=== PATIENT | male | born 1940 | race Caucasian/White ===

== ENCOUNTER 2017-11-24 10:13 | Inpatient (IN) | payer MEDICARE, OTHER ==
[~2017-11-24] VITALS: Ht 215.9 cm; Wt 71.6 kg
[~2017-11-24 10:13] MED LIST: ALEVE220 M1 PO; CARBIDOPA-LEVO1 EAC9 PO; CITALOPRAM HBR20 MG PO; DILAUDID2 MG PO; FERROUS SULFAT325 MG PO; GABAPENTIN100 MG PO; MIRAPEX0.25 MG PO; MOBIC7.5 MG PO; MULTIVITAMINS1 EAC7 PO; NAPROSYN500 MG PO; NORCO 5-325 TA1 EACH PO; PREDNISONE20 MG PO; SERTRALINE HCL100 MG PO; TYLENOL EXTRA500 MG PO
--- NOTE | 2017-11-24 15:35 | NUR ---
REPORT FROM MARISA HALL E.D.
--- NOTE | 2017-11-24 16:05 | NUR ---
PT TO ROOM 113 FROM E.D. AT THIS TIME. PT IS ALERT AND ORIENTED. PT RATES PAIN 5/10. 3/10 IS PT GOAL PAIN LEVEL.
--- NOTE | 2017-11-24 16:35 | NUR ---
NGT PLACED, PT TOLERATED WELL. ASSESSED AIR IN OVER ABD POSITIVE FOR PLACEMENT CXR ORDER PER POLICY TO CNFIRM PLACEMENT
[2017-11-24] MEDS ORDERED: HYDROCODON-ACE1 EAC8 PO (16:45)
[2017-11-24] MEDS ORDERED: FERROUS GLUCON324 M2 PO (16:47)
[2017-11-24] MEDS ORDERED: CARBIDOPA-LEVO1 EACH PO (16:48)
[2017-11-24] MEDS ORDERED: TAMSULOSIN HCL0.4 MG PO (16:49)
[2017-11-24] MEDS ORDERED: MIRAPEX0.25 MG PO (16:50)
[2017-11-24] MEDS ORDERED: PRAMIPEXOLE D0.25 MG PO (16:50)
--- NOTE | 2017-11-24 17:00 | NUR ---
NGT LOOPED BACK ON XRAY. PULLED BACK AND RE-ADVANCED, ALSO ATTEMPTED BY CLARICE HALL CCU. STILL LOOPED BACK. WILL NOTIFY TO FURTHER ASSESS.
--- NOTE | 2017-11-24 18:00 | NUR ---
IN PT ROOM TO REMOVE AND REPLACE NGT. CURRENT NGT FOUND TO HAVE KNOT AT TIP, PULLED KNOT END OUT PT MOUTH CLIPPED OFF THEN PULLED REMAINDER OF NGT OUT PT NOSE. PT TOLERATED WELL, WITH MILD BLOODY NOSE. PT ASKED TO HAVE BREAK FROM REPLACEING NEW NGT. SAID WE CAN WAIT UNTIL MORNING AND REASSESS NEED FOR NGT THEN.
--- NOTE | 2017-11-24 18:40 | NUR ---
PT ADMITTED THIS AFTERNOON, HE REPORTS PAIN AT 5/10 MAINTAINED, WAS GIVEN 4MG I.V. MORPHINE. NGT WAS DIFFICULT PLACE PROVED TO NOT BE IN PROPER PLACEMENT PER CXR, FORREST REMOVED WITH NOTEABLE DIFFICULTY KNOT IN TIP OF DISTAL NGT. WILL RE-ASSESS NEED FOR NGT IN AM. PT ALERT AND ORIENTED, COOPERATIVE WITH CARE
--- NOTE | 2017-11-24 20:09 | NUR ---
RECEIVED REPORT FROM SCOTT DEL ANGEL RN. PATIENT IS RESTING IN RECLINER. GOWN AND SHEETS CHANGED. PATIENT HAD A SMALL BLOODY NOSE, THAT HAS SINCE STOPPED BLEEDING. PATIENT DENIES ANY NEEDS AT THIS TIME. CALL LIGHT IN REACH.
--- NOTE | 2017-11-24 20:10 | NUR ---
BOLUS STARTED. PAIN RATED AT A 5/10. PATIENT REQUESTING PAIN MEDICATION WITH EVENING MEDICATIONS. WILL BRING WITH NIGHT MEDS.
--- NOTE | 2017-11-24 21:55 | NUR ---
PATIENT ASSESMENT COMPLETED. PATIENTS EVENING MEDICATIONS GIVEN PER ORDER. PATIENT RATES PAIN AT A 5/10. PATIENT GIVEN PRN PAIN MEDICATION PER ORDER. PATIENT IS SITING IN RECLINER LOOKING OUT THE WINDOW. PATIENT DENIES ANY NAUSEA AT THIS TIME. PATIENTS BOLUS COMPLETED. NO FURTHER NEEDS NOTED CALL LIGHT IN REACH.
--- NOTE | 2017-11-24 22:35 | NUR ---
PATIENT IS RESTING IN RECLINER WITH EYES CLOSED, RR 18. BREATHING IS EVEN AND UNLABORED. CALL LIGHT IN REACH.
--- NOTE | 2017-11-25 00:42 | NUR ---
PATIENT CALLED TO REQUEST ASSISTANCE TO THE BED. PATIENT IS NOW RESTING IN BED. PATIENT RATES PAIN AT A 4-5/10 IN HIS LOWER ABD. PATIENT GIVEN PRN PAIN MEDICATION PER ORDER. PATIENT DENIES ANY NAUSEA. NO FURTHER NEEDS. NOTED. CALL LIGHT IN REACH.
--- NOTE | 2017-11-25 01:59 | NUR ---
NEW IV BAG HUNG PER ORDER. PATIENT DENIES ANY NAUSEA. RATES PAIN AT A 3/10. PATIENT DENIES THE NEED FOR ANY PAIN MEDICATION AT THIS TIME. CALL LIGHT IN REACH.
--- NOTE | 2017-11-25 03:16 | NUR ---
PATIENT IS RESTING IN BED WITH EYES CLOSED, RR 17. CALL LIGHT IN REACH.
--- NOTE | 2017-11-25 04:26 | NUR ---
PATIENT GIVEN PRN PAIN MEDICATION FOR 5/10 ABD PAIN. PATIENT DENIES ANY FURTHER NEEDS. CALL LIGHT IN REACH.
--- NOTE | 2017-11-25 05:37 | NUR ---
PATIENT RESTED WELL THROUGHOUT THE SHIFT. PATIENT IS A SBA AND IS STEADY ON HIS FEET. PATIET NIS NPO AT THIS TIME. SCDS WHILE IN BED. PATIENTS URINE OUTPU IS QS. PATIEN RECEIVED PRN PAIN MEDICATION X3. NO COMPLAINTS OF NAUSEA.
--- NOTE | 2017-11-25 05:45 | NUR ---
PATIENT IS RESTING IN BED. PATIENT AWOKE BRIEFLY WHEN ROOM WAS ENTERED. PATIENT RATES PAIN AT A 3/10. PATIENT DENIES THE NEED FOR PAIN MEDICATION AT THIS TIME. PATIENT DENIES ANY NAUSEA. NO NEEDS NOTED AT THIS TIME. CALL LIGHT IN REACH.
--- NOTE | 2017-11-25 06:59 | NUR ---
PATIENTS MORNING MEDICATIONS GIVEN PER ORDER. PATIENT DENIES ANY PAIN OR NAUSEA AT THIS TIME. CALL LIGHT IN REACH.
--- NOTE | 2017-11-25 07:47 | NUR ---
PATIENT IN BED, APPEARS TO BE SLEEPING. IN ROOM. ICE WATER GIVEN TO . CALL LIGHT IN REACH
--- NOTE | 2017-11-25 08:29 | NUR ---
up walking in room, Coop with assessment
--- NOTE | 2017-11-25 08:48 | NUR ---
Med rec complete.
--- NOTE | 2017-11-25 09:50 | NUR ---
PATIENT UP IN WITH , VITALS AND I/OS CHARTED. CALL LIGHT IN REACH
--- NOTE | 2017-11-25 10:50 | NUR ---
Medicated with Morphine 6mg IV, c/o 12/01 abd pain, not passig rectal gas yet. UIn bed watching tv
--- NOTE | 2017-11-25 15:38 | NUR ---
1530- K RIDER#2 RATE DECREASED TO 50CC/HR DUE TO PT C/O PAINFUL IV SITE. , PT STATING MORE ABLE TO TOLERATE AT A LOWER RATE, NOT PAINFUL. UP IN BED VISITING WITH FAMILY
--- NOTE | 2017-11-25 17:28 | NUR ---
PATIENT UP IN BED. VITALS AND I/OS CHARTED. CALL LIGHT IN REACH
--- NOTE | 2017-11-25 17:52 | NUR ---
PT CONTINUES TO BE NPO, DOES OWN MOUTH CARE. IVF INFUSING W/O PROBLEMS, PT GOT A 30mEq K rider(3 bags of 10mEq K), IVF rate decreased to 50cc/hr as infusion was painful, improved once rate decreased. Has been walking in room, voiding using urinal. Oral belching but no rectal flatus, no bm yet. Tx of solucortef Medicated x1 per c/o abd pain. IVF infusing w/o problems
--- NOTE | 2017-11-25 19:26 | NUR ---
IV leaking, infiltrated, dc'd tip intact. 2x2 inplace. Walked hallways up and down x2 tolerated well. Back to room, walking in room
--- NOTE | 2017-11-25 19:55 | NUR ---
RECEIVED REPORT FROM DAY SHIFT RN. PATIENTS IV IS NO LONGER PATENT. PATIENT HAS FAMILY IN THE ROOM. WILL START NEW IV. PATIENT DENIES ANY PAIN OR NAUSEA. CALL LIGHT IN REACH.
--- NOTE | 2017-11-25 21:02 | NUR ---
PATIENT HAS FAMILY IN THE ROOM AND DOES NOT WISH TO HAVE A NEW IV STARTED AT THIS TIME. PATIENT WILL CALL WHEN READY. NO NEEDSNOTED. CALL LIGHT IN REACH
--- NOTE | 2017-11-25 21:49 | NUR ---
VITALS DONE AND CHARTED. BEDSIDE TABLE AND CALL LIGHT WITHIN REACH.
--- NOTE | 2017-11-25 22:20 | NUR ---
PATIENT ASSSEMENT COMPLETED. NEW IV STARTED. PATIENTS EVENING MEDICATIONS GIVEN PER ORDER. PATIENT DENIES ANY NAUSEA. PATIENT RATES PAIN AT A 4/10 IN HIS ABD. PATIENT GIVEN PRN PAIN MEDICATION. PATIENT STATED "I HAVE PASSED A LITTE BIT OF GAS". PATIENT DID AMBULATE IN THE HALLWAY MULTIPLE LAPS. PATIENT IS RESTING IN BED. PATIENT IS WATCHING FIREWORKS. NO FURTTHER NEEDSNOTED. CALL LIGHT IN REACH.
--- NOTE | 2017-11-26 00:45 | NUR ---
PATIENT IS RESTING IN BED POSITIONED ON HIS RIGHT SIDE. PATIENTS BREATHING IS EVEN AND UNLABORED, RR 17. CALL LIGHT IN REACH.
--- NOTE | 2017-11-26 02:18 | NUR ---
PATIENT AWOKEN WHEN ROOM WAS ENTERED TO EMPTY PATIENTS URINAL. PATIENT DENIES ANY PAIN OR NAUSEA AT THIS TIME. NO NEEDS NOTED. CALL LIGHT IN REACH.
--- NOTE | 2017-11-26 02:23 | NUR ---
URINAL EMPTIED AND CHARTED. BEDSIDE TABLE AND CALL LIGHT WITHIN REACH.
--- NOTE | 2017-11-26 04:55 | NUR ---
PATIENT RESTED WELL THROUGHOUT THE SHIFT. PATIENT IS NPO AT THIS TIME. PATIENT HAS SCDS IN PLACE. PAITENT IS A SBA. NO COMPLAINTS OF NAUSEA. PATIENT RECEIVED PRN PAIN MEDICATION X1.
--- NOTE | 2017-11-26 06:01 | NUR ---
PATIENTS MORNING MEDICATIONS GIVEN PER ORDER. PATIENT DENIES ANY PAIN OR NAUSE AT THIS TIME. 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 NO FURTHER NEEDS NOTED. PATIENT IS UP IN HALLWAY AMBULATING INDPENDENTLY. PATIENT IS STEADY ON HIS FEET.
--- NOTE | 2017-11-26 07:00 | NUR ---
REPORT RECEIVED FROM MAKSIM AT THIS TIME PATIENT SITTING UP IN BED, REMAINS NPO AT THIS TIME
--- NOTE | 2017-11-26 08:30 | NUR ---
AM MEDICATION PASSED TO THE PATIENT AT THIS TIME, HE DENIES ANY PAIN OR NAUSEA AT THIS TIME. PATIENT REPORTS PASSING GAS AND HAS ACTIVE BOWEL TONES.
--- NOTE | 2017-11-26 08:42 | NUR ---
GOT PATIENT A WARM WASH CLOTH AND HE WASHED HIS FACE. ALSO ASKED HIM IF HE WOULD LIKE TO TAKE A SHOWER AND HE TOLD ME IF HE DOESN'T GET TO HOME TODAY.
--- NOTE | 2017-11-26 10:50 | NUR ---
PATIENT ASSISTED UP TO THE BATHROOM TO ATTEMPT A BM
--- NOTE | 2017-11-26 13:24 | NUR ---
PT SITTING IN BED, VISITING WITH ANDRESSA. PT FEELS IMPROVEMENT, AND IS HOPING NG TUBE WILL NOT HAVE TO BE INSERTED. PT IS ALERT, ORIENTED AND HAD GOOD VISIT. VISITORS CAME JUST BEFORE LEAVING-HAD PRAYER WITH PT, WILL FOLLOW NEEDED
--- NOTE | 2017-11-26 14:45 | NUR ---
PATIENT ADVANCED AT THIS TIME TO A CLEAR LIQUID DIET
--- NOTE | 2017-11-26 16:07 | NUR ---
PATIENT TOLERATING A CLEAR LIQUID DIET WITHOUT ANY TROUBLE, IV FLUID DECREASED TO 75 MLS/HR PATIENT TALKING WITH DOCTOR FORREST AT THIS TIME
--- NOTE | 2017-11-26 19:55 | NUR ---
RECEIVED REPORT FROM DAY SHIFT RN. PT OOB TO SHOWER AT THSI TIME. A/O. INDEPENDENT. CALL LIGHT WITHN REACH. REPORTS NO OTHER NEEDS AT THIS THIME.
--- NOTE | 2017-11-26 21:35 | NUR ---
VITALS AND I&OS DONE AND CHARTED. BEDSIDE TABLE AND CALL LIGHT WITHIN REACH. PT NEEDS NOTHING ELSE AT THIS TIME.
--- NOTE | 2017-11-26 21:50 | NUR ---
ASSESSMENT COMPLETED. BOWEL TONES ACTIVE. ABDOMEN TENDER. PT OOB TO SHOWER. REPORS MINIMAL PAIN, ONLY WITH PO INTAKE. ENCOURAGE PT TO SLOW INTAKE DOWN. CALL LIGHT IN REACH. NO OHTER NEEDS
--- NOTE | 2017-11-26 22:00 | HP ---
[facility] [address], [place] [address] Signed ADMISSION DATE: 11/24/2017 REASON FOR ADMISSION: Small bowel obstruction, probably recurrent Crohn's disease. HISTORY OF PRESENT ILLNESS: This 77-year-old white man is a patient of Dr. Javier (recently retired) and presented to the emergency room, where he was thoroughly evaluated by Dr. Carlos Olmedo for abdominal pain, bloating, distention, and some vomiting. A CT scan was performed, which showed a very long segment of terminal ileum to be markedly thickened, highly consistent with inflammatory bowel disease. 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 The patient was admitted few years ago by Dr. Reid Galeana with small-bowel obstruction and findings of a similar type apparently on CT scan and managed with nasogastric tube decompression, fluid administration, and so forth with spontaneous resolution. Of special note, the patient denies any concentrated effort of antiinflammatory medication for this problem over the years. His symptoms today are similar to what he has had in the past. Previous episodes are often managed on his own with liquid diet and passage of time, which allows for resolution of his symptoms. He was not so fortunate on this occasion and that is the purpose of his visit and at this time is admission. Notes were reviewed from his bowel obstruction admission, which proved to be 10 years ago upon review of the records, January 12, 2008. History at that time revealed that he had appendectomy as well as lysis of adhesions while in the [employer] number of years ago. He had admission for bowel obstruction 10 years prior to that, which resolved without special measures and without operation. PAST MEDICAL HISTORY: Does include restless legs syndrome. He has had nephrolithiasis requiring open pyelotomy for removal of kidney stones. This was done in [place]. He has had back surgery in the past, neck operation, rotator cuff repair on the left, bilateral inguinal hernia repair, and appendectomy. ALLERGIES: Electronically Signed By: AGUILAR CLAYTON MD 11/26/17 2200 PATIENT NAME: MORGAN FRANZ HISTORY AND PHYSICAL DATE OF : 36 REPORT #: [id number] PHYSICIAN: AGUILAR CLAYTON MD PCP: Alejandro JAVIER MD REPORT IS CONFIDENTIAL AND NOT TO BE RELEASED WITHOUT AUTHORIZATION [facility] [address], [place] [address] Signed He has no known drug allergies. MEDICATIONS: At admission include [place] from [id number], also takes Naprosyn, multivitamins, Citalopram, ferrous gluconate, gabapentin, sertraline, and acetaminophen. Additionally, he takes carbidopa and Mirapex for restless legs he says. SOCIAL HISTORY: He tells me he was delivered by my grandfather in 1940 at the [facility]. He is . He has one daughter, Katherine, who I know as well. REVIEW OF SYSTEMS: He denies any shortness of breath or chest pain. He has had no dysphagia or dysuria. Denies any hematemesis or blood per rectum. PHYSICAL EXAMINATION: GENERAL: Pleasant white man, who looks to be in no sign of great distress. He does not appear clinically dehydrated at this time. Trachea is midline. CHEST: Clear. Nasogastric tube was poorly functioning that has been placed by the nursing staff. HEART: Regular. ABDOMEN: Mildly distended, but not tense and definitely not tender. There is no ascites. EXTREMITIES: Showed no clubbing, cyanosis, or edema. LABORATORY DATA: CBC shows white count 7.2, hematocrit 38.4, platelets 341,000. Electrolytes show potassium 3.3, creatinine 0.82, bicarb is 27. Liver enzymes are normal. Albumin is 3.9. CT scan was reviewed in detail with the radiologist, Dr. Pollock. A very long segment of ileum appears to be markedly thickened and more proximal small bowel to be dilated, but not thickened and therefore obstructed. Bit of a hiatal hernia is noted as well. Liver appears normal. Spleen is normal as is the pancreas. The gallbladder was slightly distended. ASSESSMENT AND PLAN: The patient was admitted for small bowel obstruction, probably related to recurrent Crohn's disease. He is curious that all these many years, he has not had dedicated treatment to the inflammatory bowel disease process, which is clearly present on CT scan. Rather than resection of his ileum in the past, it sounds as though he had a bypass. I am not entirely sure how long ago this was, but it maybe as many as 50 years ago or more even and on that basis, I will try to review the historical operation of the "Eisenhower procedure." In any case, it is highly probable he has a Crohn's related Electronically Signed By: AGUILAR CLAYTON MD 11/26/17 2501 PATIENT NAME: MORGAN FRANZ HISTORY AND PHYSICAL DATE OF : 36 REPORT #: [id number] PHYSICIAN: AGUILAR CLAYTON MD PCP: Alejandro JAVIER MD REPORT IS CONFIDENTIAL AND NOT TO BE RELEASED WITHOUT AUTHORIZATION [facility] [address] [place], [place] [address] Signed recurrent bowel obstruction. IV fluids will be administered as well as steroids and side of protection of his stomach. An unusual situation did occur in relation to his nasogastric tube. The nurses had diligently attempted to place a nasogastric tube on the nursing sterling. It was not placed in the ER as anticipated. In any case, passage of nasogastric tube was not forthcoming and multiple efforts to do so were unsuccessful. I was summoned on the basis that the nasogastric tube on plain x-ray showed a somewhat angulated tip at the GE junction. On that basis, I withdrew the nasogastric tube, which had a fair amount of resistance actually. My plan was to remove the tube entirely and place a different pressure tube, possibly slightly smaller with more ability to negotiate a hiatal hernia. The tube absolutely would not withdraw from the choanal aperture. On that basis, it was advanced and found to having a large knot in the distal aspect of the nasogastric tube!. A heavy clamp was used to carefully draw the knotted nasogastric tube out of the mouth, not amputated, and this nasogastric tube removed. There was a bit of bleeding of the nasopharynx with this, which is now controlled. We will reassess about replacing a nasogastric tube in the morning. He does not feel up to it at this time and that is understandable. If he should have recurrent nausea, vomiting, bloating, distention and so forth despite bowel rest otherwise, I will replace the tube myself. Probably, we will anyway tomorrow morning. We will get a KUB and see what the status of his bowels are at that time. Aguilar Clayton MD JM/MODL /[id number] cc: MD Alejandro Abbott MD Copies: CARLOS OLMEDO MD Electronically Signed By: AGUILAR CLAYTON MD 11/26/172199 PATIENT NAME: MORGAN FRANZ HISTORY AND PHYSICAL DATE OF : 36 REPORT #: [id number] PHYSICIAN: AGUILAR CLAYTON MD PCP: Alejandro JAVIER MD REPORT IS CONFIDENTIAL AND NOT TO BE RELEASED WITHOUT AUTHORIZATION [facility] [address], [place] [address] Signed Alejandro JAVIER MD ~ Electronically Signed By: AGUILAR CLAYTON MD 11/26/172199 PATIENT NAME: MORGAN FRANZ HISTORY AND PHYSICAL DATE OF : 36 REPORT #: [id number] PHYSICIAN: AGUILAR CLAYTON MD PCP: Alejandro JAVIER MD REPORT IS CONFIDENTIAL AND NOT TO BE RELEASED WITHOUT AUTHORIZATION
--- NOTE | 2017-11-27 00:02 | NUR ---
PT APPEARS TO BE SLEEPING. RESPIRATIONS EQUAL AND NONLABORED. CALL LIGHT IN REACH.
--- NOTE | 2017-11-27 01:40 | NUR ---
PT REPORTS PAIN 10/01. PRN PAIN MEDICAITON GIVEN. SCD'S IN PLACE. CALL [facility] IN REACH. REPORTS NO OTHER NEEDS/
--- NOTE | 2017-11-27 04:01 | NUR ---
PT APPEARS TO BE SLEEPING. RESPIRAITONS ARE EQUAL AND NONLABORED. CALL LIGHT IN REACH. FLUIDS INFUSINGAT CORRECT RATE. SCD'S IN PLACE.
--- NOTE | 2017-11-27 05:24 | NUR ---
PT UP OOB WALKING THE HALLS INDEPENDENTELY. TOLERATING WELL. REPORTS NO N/V. PAIN UNDER CONTROL.
--- NOTE | 2017-11-27 05:36 | NUR ---
VITALS AND I&OS DONE AND CHARTED. FRESH ICE WATER GIVEN. BEDSIDE TABLE AND CALL LIGHT WITHIN REACH.
--- NOTE | 2017-11-27 06:51 | NUR ---
PT SLEPT THROUGHOUT THE NIGHT. POSS DCTODAY. PT TOLERATING CLEAR LIQ. D5LR @75. SOME PAIN LAST NIGHT, MORPHINE GIVEN.
--- NOTE | 2017-11-27 07:05 | NUR ---
BEDSIDE HANDOFF REPORT RECEIVED FROM TONG SETTER RN. PT RESTING IN BED. PT DENIES NEEDS AT THIS TIME.
--- NOTE | 2017-11-27 07:45 | NUR ---
PATIENT RESTING, THIS IT RISK ANALYST WOKE HIM WHEN BREAKFAST WAS DELIVERED. BOARD UPDATED. CALL LIGHT REACH
--- NOTE | 2017-11-27 08:55 | NUR ---
PT RESTING IN BED. PT DENIES PAIN. PT ON ROOM AIR, LUNG SOUNDS CLEAR, DENIES SOB. PT TOLERATING CLEAR LIQUID DIET, DENIES NAUSEA, BOWEL TONES ACTIVE, PT HOPING TO ADVANCE TO FULL LIQUID TODAY. PT WITHOUT EDEMA, CMS INTACT, SCDS IN PLACE. IV INFUSING D5LR AT 75 ML/HR, IV PATENT. PT INDEPENDENT IN THE ROOM. PT DENIES NEEDS AT THIS TIME. DISCUSSED PLAN OF CARE. PT REPORT OF PASSING GAS, HAS NOT HAD BM.
--- NOTE | 2017-11-27 10:07 | NUR ---
PATIENT UP IN BED, AT BEDSIDE. VITALS AND I/OS CHARTED. BP TAKEN MANUALLY, THE MACHINES WERE HAVING A DIFFICULT TIME GETTING A CORRECT AND CONSISTANT READING, RN AUGUST REORTED SHE HAD THIS TROUBLE WELL. CALL LIGHT INREACH
--- NOTE | 2017-11-27 10:30 | NUR ---
PT AT [facility]. UPDATED ON MD SCHEDULE. PT DENIES NEEDS AT THIS TIME.
[2017-11-27] MEDS ORDERED: PREDNISONE10 MG PO (13:40)
[2017-11-27] MEDS ORDERED: DELZICOL400 M1 PO (13:42)
[2017-11-27] MEDS ORDERED: FAMOTIDINE20 MG PO (13:44)
--- NOTE | 2017-11-27 13:57 | NUR ---
PATIENT UP IN ROOM, WAITING TO GO HOME. DISCHARGE VITALS AND I/OS CHARTED. PATIENT EATING MAC AND CHEESE, NOC ANALYST CLAUDIA IN ROOM. NO OTHER NEEDS AT THIS TIME
--- NOTE | 2017-11-27 14:19 | NUR ---
PT DRESSED, WAITING FOR HIS "MAC AND CHEESE". HE IS ALERT, ORIENTED AND RN NATI IN TO PREP FOR DC. GOOD VISIT, HE ENJOYED HIS LUNCH. WILL FOLLOW NEEDED
--- NOTE | 2017-11-28 09:34 | DS ---
[facility] [address], [place] [address] Signed ADMISSION DATE: 11/24/2017 DISCHARGE DATE: 11/27/2017 REASON FOR ADMISSION: Small bowel obstruction. HISTORY: This 77-year-old white man is a patient Dr. Javier, who was recently retired and presented to the emergency room where he was thoroughly evaluated by Dr. Carlos Olmedo for abdominal pain, bloating, distention and vomiting. A CT scan was performed confirming a long segment of terminal ileum to be markedly thickened highly consistent with inflammatory bowel disease. A number of years ago when the patient was in the [employer] in his 20s, he was diagnosed with terminal ileitis, for which he underwent a "Eisenhower procedure" which I surmise is probably an enterocolostomy without resection. Notably, he was admitted to the hospital a few years ago by Dr. Reid Galeana for small bowel obstruction and promptly recovered with conservative management. The patient has episodes of bowel obstruction like symptoms quite commonly, for which he modifies his diet and so forth. Strangely, he has never been aggressively treated for inflammatory bowel disease, though it is highly probable he does carry that underlying diagnosis. He was admitted for further evaluation and care. PAST MEDICAL HISTORY: Includes restless legs syndrome, history of nephrolithiasis requiring open pyelotomy for kidney stones, and back surgery. He has had bilateral hernia repair and appendectomy as well as neck surgery in the past. PERTINENT PHYSICAL EXAMINATION: GENERAL: Pleasant white man, who looks to be in no sign of great distress. He did not appear clinically dehydrated. NECK: Trachea is midline. CHEST: Clear. Nasogastric tube was found to be poorly functioning, initially placed by nursing staff. ABDOMEN: Mildly distended, not tense and nontender. There is no ascites. LABORATORY DATA: White count 7.2, hematocrit 38.4, platelets 341,000, electrolytes with potassium of 3.3, creatinine 0.82. Electronically Signed By: AGUILAR CLAYTON MD 11/28/17 0934 PATIENT NAME: MORGAN FRANZ DISCHARGE SUMMARY DATE OF : 36 REPORT #: [id number] PHYSICIAN: AGUILAR CLAYTON MD PCP: Alejandro JAVIER MD REPORT IS CONFIDENTIAL AND NOT TO BE RELEASED WITHOUT AUTHORIZATION [facility] [address], [place] [address] Signed HOSPITAL COURSE: The nasogastric tube, which had been planned to be placed in the emergency room was nonfunctional. Various maneuvers by the nursing staff to pass the tube were unsuccessful. I presented to the patient's bedside and attempted to remove the tube, but it became stuck at the choanal entrance. Advancement of the tube in the hypopharynx showed that a knot had developed in the tube and on that basis, it was withdrawn from the hypopharynx. The knot cut off and the tube removed. Given the trauma and small amount of bleeding associated with attempted removal of the nasogastric tube, we left the tube out at that point. He is maintained within an n.p.o. Status, IV fluids and given the high probability of Crohn's related ileitis with obstruction initiated on hydrocortisone 100 mg IV q.8 hours as well as ulcer prophylaxis with Pepcid IV. He had improvement and was allowed to maintain without a nasogastric tube. Followup x-ray showed some gaseous distention of small bowel, but improvement over time. The abdominal x-ray showed no evidence of bowel obstruction. He was transitioned to oral prednisone 30 mg daily. He was initiated on a liquid diet, which he tolerated well. By the day of discharge, he is feeling completely better. He has had normal bowel movement. Abdominal distention has receded and he strongly wishes to be discharged home. Our plan at discharge is to initiate mesalamine 400 mg p.o. t.i.d. (half usual dose obviously) as well as prednisone 30 mg daily tapering 10 mg weekly. Additional imaging of his bowel will be undertaken in the future, probably in a month or so to include small-bowel follow-through and assess his level of ileitis. It is notable that his ileitis is not short-segment by any means. I saw at least 2 feet of the terminal ileum appeared markedly thickened and whether or not this is a bypass segment or knot is uncertain at this time. His vitamin levels were obtained and his B12 and folate were in normal ranges implying good absorption of vitamins, though he is on a vitamin supplement already. Special instructions at discharge will include a low-fiber diet until I see him back in the office in 4-6 weeks. He will initiate his usual medications as well. DISCHARGE DIAGNOSES: 1. Small bowel obstruction probably related to Crohn's ileitis. 2. 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 3. Restless legs syndrome. 4. Hypertension. Electronically Signed By: AGUILAR CLAYTON MD 11/28/17 0934 PATIENT NAME: MORGAN FRANZ DISCHARGE SUMMARY DATE OF : 36 REPORT #: [id number] PHYSICIAN: AGUILAR CLAYTON MD PCP: Alejandro JAVIER MD REPORT IS CONFIDENTIAL AND NOT TO BE RELEASED WITHOUT AUTHORIZATION [facility] [address] [place] [address] Signed DISCHARGE MEDICATIONS: Will include: 1. Pepcid 20 mg p.o. b.i.d. 2. Prednisone 30 mg daily for a week, tapering 10 mg a week until every other day for 10 days. 3. Mesalamine 400 mg three times a day. 4. Multivitamin one capsule daily. 5. Sertraline 100 mg p.o. daily. 6. Tylenol 500 mg p.o. b.i.d. for pain. 7. Long-standing hydrocodone/acetaminophen 1-2 tabs p.o. q.6 hours as needed for pain (tablets 10/325). 8. Ferrous gluconate 324 mg p.o. t.i.d. 9. Carbidopa-levodopa 100 mg tablets one p.o. t.i.d. as needed. 10. Tamsulosin (Flomax) 0.4 mg p.o. daily. 11. Pramipexole 0.25 mg p.o. b.i.d., noon and bedtime. I have recommended stopping Naprosyn as nonsteroidals are generally contraindicated inflammatory bowel disease problems. MD CHAY Anaya/NED /[id number] cc: Alejandro Javier MD Copies: Alejandro JAVIER MD ~ Electronically Signed By: AGUILAR CLAYTON MD 11/28/17 0934 PATIENT NAME: MORGAN FRANZ DISCHARGE SUMMARY DATE OF : 36 REPORT #: [id number] PHYSICIAN: AGUILAR CLAYTON MD PCP: Alejandro JAVIER MD REPORT IS CONFIDENTIAL AND NOT TO BE RELEASED WITHOUT AUTHORIZATION
== END 2017-11-27 15:05 | disposition home or self-care (01) | DRG 386 ==
LOC: ED 10:13 → MS 14:39
PROVIDERS: ADMIT Surgery
DX: K50.012 Crohn's disease of small intestine with intestinal obstruction (principal); T85.598A Other mechanical complication of other gastrointestinal prosthetic devices, implants and grafts, initial encounter; G25.81 Restless legs syndrome; I10 Essential (primary) hypertension; S09.92XA Unspecified injury of nose, initial encounter; Z79.1 Long term (current) use of non-steroidal anti-inflammatories (NSAID); Z79.899 Other long term (current) drug therapy; Z87.442 Personal history of urinary calculi
CPT/HCPCS: 36415; 71045; 74018; 74177; 80048; 80053; 81001; 82607; 82746; 83690; 85025; 86140; J1644; J1720; J2270; J3480; J7030; J7120; J7512; Q9967

== ENCOUNTER 2017-12-29 13:59 | Emergency (ER) | payer MEDICARE, OTHER ==
[~2017-12-29] VITALS: Ht 180.3 cm; Wt 71.6 kg
[~2017-12-29 13:59] MED LIST changes: +CARBIDOPA-LEVO1 EACH PO; +DELZICOL400 M1 PO; +FAMOTIDINE20 MG PO; +FERROUS GLUCON324 M2 PO; +HYDROCODON-ACE1 EAC8 PO; +PRAMIPEXOLE D0.25 MG PO; +PREDNISONE10 MG PO; +TAMSULOSIN HCL0.4 MG PO
[2017-12-29] MEDS ORDERED: ELIQUIS5 MG PO (16:13)
== END 2017-12-29 16:29 | disposition home or self-care (01) ==
LOC: ED 13:59
DX: I82.412 Acute embolism and thrombosis of left femoral vein (principal); Z79.52 Long term (current) use of systemic steroids; Z79.899 Other long term (current) drug therapy; Z79.891 Long term (current) use of opiate analgesic
CPT/HCPCS: 80053; 85025; 93971; 99284

== ENCOUNTER 2018-02-07 08:53 | Emergency (ER) | payer MEDICARE, OTHER ==
[~2018-02-07] VITALS: Ht 180.3 cm; Wt 71.6 kg
--- OUTSIDE RECORDS SUMMARY | ~2018-02-07 | XMS | Encounter Summary ---
Demographics + + + | Address | [address] | | | [place] [address] | + + + | Home Phone | | + + + | Preferred Language | Unknown | + + + | Marital Status | | + + + | Mandaeism Affiliation | Unknown | + + + | Race | Unknown | + + + | Ethnic Group | Unknown | + + + Author + + + | Author | [facility] | | | and [place] | + + + | Organization | [facility] | | | and [place] | + + + | Address | Unknown | + + + | Phone | Unavailable | + + + Support + + + + + | Name | Relationship | Address | Phone | + + + + + | Xochitl Gomez | ECON | [address] | | | | | [place] | | | | | [phone] | | + + + + + Care Team Providers + +------+ + | Care Fermentation Operator Name | Role | Phone | + +------+ + | Kelly Sosa MD | PCP | | + +------+ + Reason for Visit Auth/Cert +--------+--------+ + + + + | Status | Reason | Specialty | Diagnoses / | Referred By | Referred To | | | | | Procedures | Contact | Contact | +--------+--------+ + + + + | | | | Diagnoses | | | | | | | Cervical | | | | | | | spondylosis | | | | | | | with | | | | | | | myelopathy | | | | | | | (M47.12), | | | | | | | Neuropathy | | | | | | | (G62.9), | | | | | | | History of | | | | | | | fusion of | | | | | | | cervical | | | | | | | spine | | | | | | | (Z98.1), | | | | | | | Cervical | | | | | | | spinal | | | | | | | stenosis | | | | | | | (M48.02) | | | | | | | Procedures | | | | | | | NE | | | | | | | ARTHRODESIS | | | | | | | ANT | | | | | | | INTERBODY | | | | | | | INC | | | | | | | DISCECTOMY, | | | | | | | CERVICAL | | | | | | | BELOW C2 NE | | | | | | | ARTHRODESIS | | | | | | | ANT | | | | | | | INTERBODY | | | | | | | INC | | | | | | | DISCECTOMY, | | | | | | | CERVICAL | | | | | | | BELOW C2 NE | | | | | | | ARTHRODESIS | | | | | | | ANT | | | | | | | INTERBODY | | | | | | | INC | | | | | | | DISCECTOMY, | | | | | | | CERVICAL | | | | | | | BELOW C2 | | | | | | | EACH ADDL | | | | | | | NE ALLOGRAFT | | | | | | | FOR SPINE | | | | | | | SURGERY ONLY | | | | | | | STRUCTURAL | | | | | | | ANTERIOR | | | | | | | INSTRUMENTAT | | | | | | | ION 4-7 | | | | | | | VERTEBRAL | | | | | | | SEGMENTS NE | | | | | | | INSJ | | | | | | | BIOMCHN DEV | | | | | | | INTERVERTEBR | | | | | | | AL DSC SPC | | | | | | | W/ARTHRD NE | | | | | | | INSJ | | | | | | | BIOMCHN DEV | | | | | | | INTERVERTEBR | | | | | | | AL DSC SPC | | | | | | | W/ARTHRD NE | | | | | | | INSJ | | | | | | | BIOMCHN DEV | | | | | | | INTERVERTEBR | | | | | | | AL DSC SPC | | | | | | | W/ARTHRD NE | | | | | | | REMOVE | | | | | | | SPINE FIX | | | | | | | DEV,ANTERIOR | | | | | | | ANTERIOR | | | | | | | INSTRUMENTAT | | | | | | | ION 2-3 | | | | | | | VERTEBRAL | | | | | | | SEGMENTS NE | | | | | | | ALLOGRAFT | | | | | | | FOR SPINE | | | | | | | SURGERY ONLY | | | | | | | STRUCTURAL | | | | | | | C3-4, C4-5, | | | | | | | C6-7 | | | | | | | Anterior | | | | | | | Cervical | | | | | | | Discectomy | | | | | | | Fusion w/ | | | | | | | C5-6 | | | | | | | Hardware | | | | | | | Revision | | | +--------+--------+ + + + + Encounter Details +--------+ + + + + | Date | Type | Department | Care Team | Description | +--------+ + + + + | 12/09/ | Hospital | [facility] | Eagle Pacheco MD | | | 2018 - | Encounter | [facility] SUR[facility] | [address] [place] | | | | | [address] | [address] [place] | | | 12/10/ | | [place] [id number] | [id number] | | | 2017 | | [phone] | | | +--------+ + + + + Social History + +-------+ +--------+ + | Tobacco Use | Types | Packs/Day | Years | Date | | | | | Used | | + +-------+ +--------+ + | Former Smoker | | | | Quit: 05/10/1967 | + +-------+ +--------+ + + +------+---+---+ | Smokeless Tobacco: | Chew | | | | Current User | | | | + +------+---+---+ + + | Comments: 1 can every 2-3 days | + + + + +---------+ + | Alcohol Use | Drinks/We | oz/Week | Comments | | | ek | | | + + +---------+ + | Yes | | | 1-2 drinks, 2- times a month | + + +---------+ + + + + | Sex Assigned at | Date Recorded | | | | + + + | Not on file | | + + + as of this encounter Last Filed Vital Signs + + + + | Vital Sign | Reading | Time Taken | + + + + | Blood Pressure | 159/72 | 12/10/2017715 PDT | + + + + | Pulse | 66 | 12/10/2017715 PDT | + + + + | Temperature | 36.4 C (97.5 F) | 12/10/2017715 PDT | + + + + | Respiratory Rate | 18 | 12/10/2017715 PDT | + + + + | Oxygen Saturation | 98% | 12/10/2017715 PDT | + + + + | Inhaled Oxygen | - | - | | Concentration | | | + + + + | Weight | 74.3 kg (163 lb 12.8 | 12/09/20171244 PDT | | | oz) | | + + + + | Height | 180.3 cm (5' 11") | 12/09/20171244 PDT | + + + + | Body Mass Index | 22.85 | 12/09/20171244 PDT | + + + + in this encounter Functional Status + + + + | Functional Status | Response | Date of Assessment | + + + + | Are you deaf or do you have serious | No | 12/10/2017 | | difficulty hearing? | | | + + + + | Are you blind or do you have serious | No | 12/10/2017 | | difficulty seeing, even when wearing | | | | glasses? | | | + + + + | Do you have serious difficulty walking or | No | 12/10/2017 | | climbing stairs? (5 years old or older) | | | + + + + | Do you have difficulty dressing or bathing? | No | 12/10/2017 | | (5 years old or older) | | | + + + + | Because of a physical, mental, or emotional | No | 12/10/2017 | | condition, do you have difficulty doing | | | | errands alone such as visiting a doctor's | | | | office or shopping? [15 years old or | | | | older)] | | | + + + + + + + + | Cognitive Status | Response | Date of Assessment | + + + + | Because of a physical, mental, or emotional | No | 12/10/2017 | | condition, do you have serious difficulty | | | | concentrating, remembering, or making | | | | decisions? (5 years old or older) | | | + + + + as of this encounter Discharge Summaries Tyesha Jalloh PA-C - 12/10/2017 0834 PDTFormatting of this note may be different f rom the original. DISCHARGE SUMMARY Pt. Name/Age/: Brayden Kohler 77 y.o. 1940 Date of Admission: 12/09/2017 Date of Discharge: 12/10/2017 Admitting Physician: Eagle Pacheco MD PCP: Kelly Sosa Discharging Physician: Jemima Jalloh PA-C Primary Discharge Dx: <principal problem not specified> Secondary Discharge Dx: Patient Active Problem List Diagnosis Cervical spondylosis with myelopathy H/O Cervical Fusion - C5-6 - 2007 Spinal stenosis of lumbar region without neurogenic claudication Lumbar facet arthropathy Foraminal stenosis of lumbar region Lumbar radiculopathy S/P lumbar laminectomy Cervical spinal stenosis Restless leg syndrome Neuropathy H/O Kidney stones Decreased glomerular filtration rate (GFR) Anemia Dyspnea Fatigue Reason for Admission (Brief): The patient is a 77 y.o.malethat [facility] The patient was found to have symptoms consistent with cervical disease and was sent for a cervical MRI. Have cervical myelopathy and survey her cervical spinal s tenosis. He had previous cervical fusion at C5-6. Since we saw him last the patient had issues with kidney stones and has been working with urology. He has had 2 surgeries and is now cleared from urology to move forward with surgery. He continues to have primarily low back pain. He also notices neurogenic claudication balance disturbance poor coordination of his hands and handwriting changes. He presents today for surger.y He has been having leg symptoms and that is what initially brought him in here. His legs ge t weak, feels like he will lose his balance, has some gait instability and uses a hand rail when he can to help keep him up right. No pain in his hands and arms although hedoes have numbness and coordination problems of the hands however. His hand writing is going down hill and is pretty shaky these days. Had a previous neck surgery with . Then Dr. Bauer did a procedure in his back about a mo nth after did this. Hospital Course, including Complications: The patient was admitted for planned surgery. He had a cervical fusion completed without c omplication. After surgery, there were no events. He mobilized well. The patient was disc harged home and will follow-up as an outpatient. There were no cardiac issues, pulmonary issues, evidence of DVT or infection. Medications Reconciled upon Discharge are: Discharge Medications New Medications Details cyclobenzaprine 10 mg tablet Take 0.5-1 tablets by mouth 3 times daily as needed for Muscle spasms. aka: FLEXERIL lactulose 10 g/15 mL solution Take 30 mLs by mouth 2 times daily. For constipation oxyCODONE 10 MG Tabs Take 1-2 tablets by mouth every 4 hours as needed for Pain. Unchanged Medications Details carbidopa-levodopa 10-100 mg per tablet Take 2 tablets by mouth nightly. aka: SINEMET CENTRUM SILVER ULTRA MENS Tabs Take 1 tablet by mouth. DELZICOL [address] capsule Generic drug: mesalamine take 1 tablet by mouth three times a day for CROHNS famotidine 20 mg tablet take 1 tablet by mouth every 12 hours aka: PEPCID ferrous gluconate 324 mg tablet Take 1 tablet by mouth 3 times daily. aka: FERGON lisinopril 10 mg tablet take 1 tablet by mouth once daily aka: PRINIVIL, ZESTRIL MIRAPEX 0.25 mg tablet Generic drug: pramipexole Take 0.5 mg by mouth nightly. Take 1 tablet a noon and two tablets at bedtime. predniSONE 10 mg tablet take 3 tablets by mouth once daily for 1 week then take 2 tablets... (REFER TO PRESCRIPTI ON NOTES). aka: DELTASONE tamsulosin 0.4 mg Caps Take 1 capsule by mouth daily (after breakfast). aka: FLOMAX Discontinued Medications HYDROcodone-acetaminophen 10-325 mg per tablet aka: NORCO Condition on Discharge: Stable Follow-Up Plans: Follow-up: 3-4 weeks for routine follow-up. Follow-up with primary care physician as needed. Diet: Resume home diet Activity: Continue to follow guidelines and precautions as previously discussed. Bracing: C Brace Electronically signed by: Jemima Jalloh, 12/10/2017 8:34 [facility] in this encounter Discharge Instructions Tyesha Jalloh PA-C - 12/10/2017Discharge Instructions for Cervical SURGERY You had a cervical operation. During this procedure, your doctor unpinched some of the nerv es in your neck. Here s what you need to know about home care following a cervical surger y. Activity Arrange your household to keep the items you need within reach. Remove electrical cords, throw rugs,and anything else that may cause you to fall. Follow your doctor s instructions for wearing acervical collar or brace. The neck co llar or brace is important because it supports and correctly positions your neck after surge ry. Be sure to follow instructions for its care, use, and the length of time you must wear i t. Don t raise your hands over your head [id number])after your surgery. Don t drive until your doctor says it s OK. This will most likely be when you can mo ve your neck from side to side freely and without pain. Never drive while you are taking opi oid pain medication. Walk as much as possible. You may also go up and down stairs as much as you can tolerate . Walking outside or walking on a treadmill at a slow speed with no incline is OK. Don t lift anything heavier than5 pounds until instructed to advance. Ask your doctor when you can return to work. Incision care Check your incision daily for redness, tenderness, or drainage. Don t soak your wound in water (no hot tubs, bathtubs, swimming pools) until your doct or says it s OK. Don t soak your wound in water (no hot tubs, bathtubs, swimming pools) until your doct or says it s OK. If you have steristrips in place (small thin tape dressing), these will wear off in 7-10 days. If they have not come off, please remove them on day 14 after surgery. Your wound does not need to be covered after the steristrips come off and it is recommen ded to get them wet and wash them with soap and water. Other home care Take your medication exactly as directed. Talk to your doctor about pain medication. Don t take nonsteroidal, anti-inflammatory medications (NSAIDs),such as ibuprofen un less your doctor approves if you had a cervical fusion. They may delay or prevent proper fus ion of bone. As long as you keep your incision dry you may shower as desired after your surgery. You may allow shower water to run over the incision and get it wet after 5 days, but do not subm erse the incision under water until after you see your provider at your 1 month post op visi t. You may be instructed to use a neck collar while you shower. If so, carefully remove it when you finish showering. Then keep your neck correctly positioned as you gently pat dry yo ur skin, the incision, and the neck collar. Then put the neck collar back on. Don t soak in bathtubs, hot tubs, or swimming pools until instructed by your doctor. Your incision mayhave beenclosed using sutures, elen, or strips of tape. You can allow strips of tape to fall off on their own. Don t rub the incision, or apply creams or lotions onit. If you smoke, quit. Smoking slows healing of bone. Enroll in a stop-smoking program to i mprove your chances of success. Follow-up Most patients will be seen approximately 4 weeks after surgery unless you have sutures o r elen in which case you will be seen in about 2 weeks. Be sure to get your 1 month post op x-rays prior to your 1 month post op appointment before your appointment. We will likely coordinate x-rays prior to each of your upcoming visits to make sure the fusion or disc surgery heals appropriately. You may get emails from [facility] about your clinical results for the next several years. Celina de paz complete this as it lets us know how you are doing and what we can do to help more. When to seek medical attention Call 911 right away if you have any of the following: Chest pain, shortness of breath, or n ew issues with your bowels or bladder that were not present previously. Otherwise call us for recommendations for any of the following: Fever with temperature of greater than 101.4 degrees Fahrenheit Increasing drainage, redness, or significant swelling of your incision or incisions Opening of the incision Major and prolonged increase in pain or numbness in the arms Worsening strength in your arms or legs When in Doubt There are a number of recommendations and guidance for your postoperative journey in the Pr eparing for Neck Surgery booklet that you were provided either in Spine Class or at the hosp ital. Please use it as a guide as you heal. The goal is to get you back to a life with les s pain, and we hope this will help you with that goal. in this encounter Medications at Time of Discharge + + + +---------+ + + | Medication | Sig. | Disp. | Refills | Start | End Date | | | | | | Date | | + + + +---------+ + + | carbidopa-levodopa | Take 2 tablets by | | 1 | 02/10/20 | | | (SINEMET) 10-100 mg | mouth nightly. | | | 17 | | | per tablet | | | | | | + + + +---------+ + + | cyclobenzaprine | Take 0.5-1 tablets | 90 | 3 | 12/11/19 | | | (FLEXERIL) 10 mg | by mouth 3 times | tablet | | 18 | | | tablet | daily as needed for | | | | | | | Muscle spasms. | | | | | + + + +---------+ + + | famotidine | take 1 tablet by | | 1 | 11/28/19 | | | (PEPCID) 20 mg | mouth every 12 hours | | | 18 | | | tablet | | | | | | + + + +---------+ + + | ferrous gluconate | Take 1 tablet by | | 0 | 11/03/19 | | | (FERGON) 324 mg | mouth 3 times daily. | | | 18 | | | tablet | | | | | | + + + +---------+ + + | lisinopril | take 1 tablet by | | 0 | 12/01/19 | | | (PRINIVIL, ZESTRIL) | mouth once daily | | | 18 | | | 10 mg tablet | | | | | | + + + +---------+ + + | pramipexole | Take 0.5 mg by mouth | | | | | | (MIRAPEX) 0.25 mg | nightly. Take 1 | | | | | | tablet | tablet a noon and | | | | | | | two tablets at | | | | | | | bedtime. | | | | | + + + +---------+ + + | predniSONE | take 3 tablets by | | 0 | 11/28/19 | | | (DELTASONE) 10 mg | mouth once daily for | | | 18 | | | tablet | 1 week then take 2 | | | | | | | tablets... (REFER | | | | | | | TO PRESCRIPTION | | | | | | | NOTES). | | | | | + + + +---------+ + + | tamsulosin | Take 1 capsule by | 30 | 1 | 09/05/19 | | | (FLOMAX) 0.4 mg CAPS | mouth daily (after | capsule | | 18 | | | | breakfast). | | | | | + + + +---------+ + + | DELZICOL [address] | take 1 tablet by | | 0 | 11/28/19 | | | capsule | mouth three times a | | | 18 | 8 | | | day for CROHNS | | | | | + + + +---------+ + + | lactulose 10 g/15 | Take 30 mLs by mouth | 240 mL | 2 | 12/11/19 | | | mL solution | 2 times daily. For | | | 18 | 8 | | | constipation | | | | | + + + +---------+ + + | Multiple | Take 1 tablet by | | | | | | Vitamins-Minerals | mouth. | | | | 8 | | (CENTRUM SILVER | | | | | | | ULTRA MENS) TABS | | | | | | + + + +---------+ + + | oxyCODONE 10 MG | Take 1-2 tablets by | 120 | 0 | 12/11/19 | | | TABS | mouth every 4 hours | tablet | | 18 | 8 | | | as needed for Pain. | | | | | + + + +---------+ + + as of this encounter Progress Notes Tyesha Jalloh PA-C - 12/10/2017 7046 PDTFormatting of this note may be different f rom the original. [facility] NEUROSURGERY PROGRESS NOTE PATIENT NAME: Brayden Kohler AGE: 77 y.o. DATE OF SERVICE: 12/10/2017 8:23 S: The patient c/o manageable neck pain. The patient has been mobilizing well. The arm sy mptoms are at improved from preoperatively. The patient isn't having any significant swallowing difficulty. He is reporting sore throat that is controlled by pain medications. O: CURRENT MEDICATIONS: Current Facility-Administered Medications Medication Dose Route Frequency Provider Last Rate Last Dose acetaminophen (TYLENOL) tablet 650 mg 650 mg Oral Q4H PRN Arvin Baeza PA-C aluminum & magnesium hydroxide-simethicone (MAALOX PLUS REGULAR STRENGTH) 200-200-20 mg /5 mL suspension 30 mL 30 mL Oral Q6H PRN Arvin Baeza PA-C bisacodyl (DULCOLAX) suppository 10 mg 10 mg Rectal Daily PRN JEANINE Becker calcium carbonate (TUMS) chewable tablet 1,000 mg 1,000 mg Oral Q2H PRN Arvin Baeza PA-C carbidopa-levodopa (SINEMET) 10-100 mg per tablet 2 tablet 2 tablet Oral Nightly Dougl as Tim Baeza PA-C 2 tablet at 12/09/17 1856 cyclobenzaprine (FLEXERIL) tablet 10 mg 10 mg Oral Q8H PRN Arvin Baeza PA-C dexamethasone (DECADRON) 4 mg/mL injection 4 mg 4 mg Intravenous 4 times per day Dougl as Tim Baeza PA-C 4 mg at 12/10/17 0641 diphenhydrAMINE (BENADRYL) injection 12.5 mg 12.5 mg Intravenous Q4H PRN Arvin Baeza PA-C Or diphenhydrAMINE (BENADRYL) tablet 25 mg 25 mg Oral Q4H PRN Arvin Baeza PA-C Or diphenhydrAMINE (BENADRYL) 12.5 mg/5 mL liquid 25 mg 25 mg Oral Q4H PRN Arvin Baeza PA-C docusate sodium (COLACE) capsule 100 mg 100 mg Oral BID Arvin Baeza PA-C 10 0 mg at 12/09/17 2146 enalaprilat (VASOTEC) injection 1.25 mg 1.25 mg Intravenous Q6H PRN Arvin english PA-C famotidine (PEPCID) tablet 20 mg 20 mg Oral BID Arvin Baeza PA-C 20 mg at 0 12/09/172145 ferrous gluconate (FERGON) tablet 324 mg 324 mg Oral TID Arvin Baeza PA-C labetalol (TRANDATE) 5 mg/mL injection 10 mg 10 mg Intravenous Q1H PRN Arvin Baeza PA-C lactated ringers (LR) infusion Intravenous Continuous Eagle Pacheco MD 100 mL/hr at 2029 lactulose liquid 30 mL 30 mL Oral Daily PRN Arvin Baeza PA-C lisinopril (PRINIVIL, ZESTRIL) tablet 10 mg 10 mg Oral Daily Arvin Baeza PA-C [START ON 12/11/2017] magnesium hydroxide (MILK OF MAGNESIA) 400 mg/5 mL suspension 30 m L 30 mL Oral Nightly PRN Arvin Baeza PA-C menthol (HALLS COUGH DROP) lozenge 1 lozenge 1 lozenge Buccal Q2H PRN Arvin aden PA-C 1 lozenge at 12/10/17 0159 mesalamine (PENTASA) CR capsule 500 mg 500 mg Oral TID Arvin Baeza PA-C metoclopramide (REGLAN) 5 mg/mL injection 10 mg 10 mg Intravenous Q4H PRN Arvin Baeza PA-C metoclopramide (REGLAN) tablet 10 mg 10 mg Oral Q4H PRN Arvin Baeza PA-C morphine injection 1-2 mg 1-2 mg Intravenous Q1H PRN Arvin Baeza PA-C ondansetron (ZOFRAN ODT) disintegrating tablet 4 mg 4 mg Oral Q6H PRN Arvin aden PA-C ondansetron (ZOFRAN) injection 4 mg 4 mg Intravenous Q6H PRN Arvin Baeza PA-C oxyCODONE (ROXICODONE) tablet 5-20 mg 5-20 mg Oral Q4H PRN Arvin Baeza PA-C 15 mg at 12/10/17 0641 phenol (CHLORASEPTIC) spray 1-2 spray 1-2 spray Mouth/Throat Q3H PRN Arvin zhao PA-C polyethylene glycol (MIRALAX) powder 17 g 17 g Oral Daily PRN JEANINE Becker pramipexole (MIRAPEX) tablet 0.5 mg 0.5 mg Oral Nightly Arvin Baeza PA-C 0. 5 mg at 12/09/17 2146 prochlorperazine (COMPAZINE) tablet 5 mg 5 mg Oral Q6H PRN Arvin Baeza PA-C senna (SENOKOT) tablet 8.6 mg 8.6 mg Oral BID PRN Arvin Baeza PA-C tamsulosin (FLOMAX) capsule 0.4 mg 0.4 mg Oral Daily after breakfast Arvin zhao PA-C ALLERGIES: Allergies Allergen Reactions Baclofen Other (See Comments) Leg Cramps PHYSICAL EXAMINATION: Temp: [35.6 C (96.1 F)-36.6 C (97.9 F)] 36.4 C (97.5 F) Pulse: [47-69] 66 Resp: [13-18] 18 BP: (126-159)/(56-112) 159/72 Intake/Output Summary (Last 24 hours) at 12/10/17 0823 Last data filed at 12/10/17 0700 Gross per 24 hour Intake 2529 ml Output 1860 ml Net 669 ml GENERAL: Brayden Kohler is in no acute distress with unlabored respirations. HEENT: HEAD/FACE: EYES: Normocephalic and atraumatic. There are no areas of recent trauma. Normal sclerae without icterus. NECK: There is no significant swelling and the neck is soft. SERENA 40 cc CHEST: Clear. HEART: Regular. ABDOMEN: Soft and nondistended. EXTREMITIES: No edema or swelling. [facility]'s NEUROLOGICAL EXAM: MENTAL STATUS: The patient is awake, alert, and oriented. He follows simple and complex commands. He speech is fluent, his comprehends speech well, and his repeats well. He has no apparent deficits with short or fci memory. MOTOR EXAM: Motor strength is stable SENSORY EXAM: Sensory exam is stable 24 HOUR LABS: All Component Based Labs 12/09/17 1329 Glucose, POC 114(H) ASSESSMENT: NEUROSURGICAL DIAGNOSES: S/p Cervical Operation, Hospital Day 1 HOSPITAL/GENERAL DIAGNOSES: Past Medical History: Diagnosis Date Crohn's disease (HCC) 1961 DDD (degenerative disc disease), lumbar Dyspnea Facet arthropathy, lumbar (HCC) Fatigue Impacted cerumen Internal derangement of knee Iron deficiency Lumbago Lumbar herniated disc Lumbar radiculitis Lumbar spinal stenosis Microscopic hematuria Nephrolithiasis Neuropathy Nontropical sprue Restless leg syndrome Spondylolisthesis of lumbar region Tremor Vitamin B12 deficiency Vitamin D deficiency Wears dentures Full upper PLAN: - Neurologically stable and pain control is appropriate. - Medically stable. - Mobilize, PT/OT - SCD's - Working on BM/bowel function. Encouraged activity and medications to assist - Drain output is as expected. Continue drain until discharge likely today - Disp: Home likely today if meets goals ELECTRONICALLY SIGNED BY: Jemima Jalloh PA-C, 12/10/2017 8:23in this encounter Plan of Treatment +--------+---------+ + + + | Date | Type | Specialty | Care Team | Description | +--------+---------+ + + + | 03/02/ | Office | Neurosurgery | Eagle Pacheco MD | | | 2017 | Visit | | [address] [facility] | | | | | | [address] [place] | | | | | | [id number] | | | | | | | | +--------+---------+ + + + as of this encounter Procedures + +--------+ + + + | Procedure Name | Priori | Date/Time | Associated Diagnosis | Comments | | | ty | | | | + +--------+ + + + | XR CERVICAL SPINE 2 | STAT | 12/09/2017 | | Results for this | | OR 3 VIEWS | | 1955 PDT | | procedure are in the | | | | | | results section. | + +--------+ + + + | FL MELISSA STATS NO | Routin | 12/09/2017 | | Results for this | | CHARGE | e | 1733 PDT | | procedure are in the | | | | | | results section. | + +--------+ + + + | FUSION CERVICAL | | 12/09/2017 | Cervical | | | ANTERIOR W/ PLATING | | 1445 PDT | spondylosis with | | | | | | myelopathy (M47.12), | | | | | | Neuropathy (G62.9), | | | | | | History of fusion | | | | | | of cervical spine | | | | | | (Z98.1), Cervical | | | | | | spinal stenosis | | | | | | (M48.02) | | + +--------+ + + + +---+--------+ | | Case | | | Notes | | | | | | Instru | | | ments: | | | | | | C-Arm, | | | | | | Drill, | | | | | | Micros | | | copeBi | | | ologic | | | s: | | | Grafto | | | n, | | | PEEKIm | | | plants | | | : | | | Transl | | | ationa | | | l, | | | Zevo | | | (Hold) | | | , CSLP | | | | | | [place] | | | l, | | | Metal | | | Cuttin | | | g Bit | | | on | | | HoldTa | | | ble: | | | OSI | | | Flat | | | TopRep | | | : | | | ConorE | | | st | | | time: | | | 150min | +---+--------+ | | | | | Specia | | | l | | | Needs | | | Sukhi | | | | | | Abdirahman | | | - | | | Transl | | | ationa | | | l, | | | Zevo | | | (hold) | | | , CSLP | | | | | | [place] | | | l, | | | Metal | | | Cuttin | | | g Bit | | | (hold) | | | Table: | | | OSI | | | Flat | | | Top | +---+--------+ + +--------+ +---+ + | POC GLUCOSE | Routin | 12/09/2017 | | Results for this | | | e | 1329 PDT | | procedure are in the | | | | | | results section. | + +--------+ +---+ + in this encounter Results XR Cervical Spine 2 or 3 Views (12/09/20176) + + + | Narrative | Performed At | + + + | XR CERVICAL SPINE 2 OR 3 VIEWS 12/09/2017 7:56 PM HISTORY: post | [facility] | | op. COMPARISON: 05/26/2017 FINDINGS: Visualized skull base and | | | facial structures demonstrate no acute findings. Anterior fusion | | | changes are seen from C3 through C7 without evidence of immediate | | | postoperative complication. Vertebral body heights are preserved. Mild | | | spondylosis at C2-C3. Facets are anatomically aligned. Multilevel | | | facet spondylosis. Right neck surgical drainage catheter. | | | IMPRESSION - No evidence of immediate postoperative complication. | | | Dictated and Signed by: Lewis Oakley MD Electronically signed: | | | 12/09/2017 8:50 PM | | + + + + + | Procedure Note | + + | Massimo, Rad Results In - 12/09/2017 2053 PDT XR CERVICAL SPINE 2 OR 3 VIEWS 12/09/2017 | | 7:56 PMHISTORY: post op.COMPARISON: 05/26/2017FINDINGS:Visualized skull base and facial | | structures demonstrate no acute findings. Anterior fusion changes are seen from C3 | | through C7 without evidence ofimmediate postoperative complication. Vertebral body | | heights are preserved. Mildspondylosis at C2-C3. Facets are anatomically aligned. | | Multilevel facetspondylosis. Right neck surgical drainage catheter.IMPRESSION -No | | evidence of immediate postoperative complication.Dictated and Signed by: Lewis Oakley | | Electronically signed: 12/09/2017 8:50 PM | | | |Anterior fusion changes are seen from C3 through C7 without evidence of | |immediate postoperative complication. Vertebral body heights are preserved. Mild | |spondylosis at C2-C3. Facets are anatomically aligned. Multilevel facet | |spondylosis. Right neck surgical drainage catheter. | | | |IMPRESSION - | |No evidence of immediate postoperative complication. | | | |Dictated and Signed by: Lewis Oakley MD | | Electronically signed: 12/09/2017 8:50 PM | + + + +---------+ + + | Performing | Address | City/State/Zipcode | Phone Number | | Organization | | | | + +---------+ + + | [facility] | | | | + +---------+ + + FL C-Arm Stats No Charge (12/09/2017 1733) + + + | Narrative | Performed At | + + + | This exam has been auto-finalized and the interpretation may exist | [facility] | | elsewhere in the chart. | | + + + + +---------+ + + | Performing | Address | City/State/Zipcode | Phone Number | | Organization | | | | + +---------+ + + | [facility] | | | | + +---------+ + + POC Glucose (12/09/2017 1329) + +---------+ + + | Component | Value | Ref Range | Performed At | + +---------+ + + | Glucose, POC | [address] (H) | 70 - 109 mg/dL | [facility] | | | | | [facility] | | | [facility] - | | | | | [facility]ATORY | + +---------+ + + + + | Specimen | + + | Blood | + + + + + + + | Performing | Address | City/State/Zipcode | Phone Number | | Organization | | | | + + + + + | [facility] | [address] | [place] | [phone] | | [facility] | | [address] | | | - LABORATORY | | | | + + + + + | [facility] 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), Cervical spinal stenosis (M48.02) | + + Administered Medications + +--------+ + +------+------+ | Medication Order | MAR | Action | Dose | Rate | Site | | | Action | Date | | | | + +--------+ + +------+------+ | acetaminophen (TYLENOL) tablet | Given | | 1,000 mg | | | | 1,000 mg 1,000 mg, Oral, ONCE, | | 8 13:17 | | | | | 12/09/17 at 1300, For 1 dose, | | PDT | | | | | Pre-op | | | | | | + +--------+ + +------+------+ +---+---+ | | | +---+---+ + +-------+ +---------+---+---+ | carbidopa-levodopa (SINEMET) | Given | | 2 | | | | 10-100 mg per tablet 2 tablet 2 | | 8 18:56 | tablets | | | | tablet, Oral, NIGHTLY, First dose | | PDT | | | | | on Thu12/09/17 at 1900, | | | | | | | Post-op/Phase II | | | | | | + +-------+ +---------+---+---+ +---+---+ | | | +---+---+ + +---------+ +-----+ +---+ | ceFAZolin (ANCEF, KEFZOL) 100 | New Bag | | 2 g | 40 mL/hr | | | mg/mL IV syringe 2 g 2 g, | | 8 0:48 | | | | | Intravenous, Administer over 30 | | PDT | | | | | Minutes, EVERY 8 HOURS INTERVAL, | | | | | | | First dose on Thu12/09/17 at | | | | | | | 2330, For 2 doses, Start 8 hours | | | | | | | after previous dose. Last dose | | | | | | | to be given within 24 hours of | | | | | | | surgery end time. | | | | | | + +---------+ +-----+ +---+ +---------+ +-----+ +---+ | New Bag | | 2 g | 40 mL/hr | | | | 8 6:41 | | | | | | PDT | | | | +---------+ +-----+ +---+ +---+---+ | | | +---+---+ + +-------+ +-------+---+---+ | cyclobenzaprine (FLEXERIL) | Given | | 10 mg | | | | tablet 10 mg 10 mg, Oral, EVERY | | 8 9:47 | | | | | 8 HOURS PRN, Muscle spasms, | | PDT | | | | | Starting 12/09/17 at 2011, Use | | | | | | | if methocarbamol ineffective or | | | | | | | not ordered. | | | | | | + +-------+ +-------+---+---+ +---+---+ | | | +---+---+ + +-------+ +------+---+---+ | dexamethasone (DECADRON) 4 | Given | | 4 mg | | | | mg/mL injection 4 mg 4 mg, | | 8 21:46 | | | | | Intravenous, EVERY 6 HOURS (4 | | PDT | | | | | times per day), First dose on Thu | | | | | | | 12/09/17 at 2030, Post-op/Phase | | | | | | | II | | | | | | + +-------+ +------+---+---+ +-------+ +------+---+---+ | Given | | 4 mg | | | | | 8 6:41 | | | | | | PDT | | | | +-------+ +------+---+---+ + +---+ | | | + +---+ | diphenhydrAMINE (BENADRYL) 12.5 | | | mg/5 mL liquid 25 mg 25 mg, | | | Oral, EVERY 4 HOURS PRN, Itching, | | | Starting Thu12/09/17 at 2011, | | | Oral route is preferred. | | + +---+ | | | + +---+ | diphenhydrAMINE (BENADRYL) | | | injection 12.5 mg 12.5 mg, | | | Intravenous, EVERY 4 HOURS PRN, | | | Itching, Starting Thu12/09/17 at | | | 2011, Oral route is preferred. | | + +---+ | | | + +---+ | diphenhydrAMINE (BENADRYL) | | | tablet 25 mg 25 mg, Oral, EVERY | | | 4 HOURS PRN, Itching, Starting | | | Thu12/09/17 at 2011, Oral route | | | is preferred. | | + +---+ | | | + +---+ + +-------+ +--------+---+---+ | docusate sodium (COLACE) | Given | | 100 mg | | | | capsule 100 mg 100 mg, Oral, 2 | | 8 21:46 | | | | | TIMES DAILY, First dose on Thu | | PDT | | | | | 12/09/17 at 2100, First line agent | | | | | | | for constipation | | | | | | + +-------+ +--------+---+---+ +-------+ +--------+---+---+ | Given | | 100 mg | | | | | 8 9:42 | | | | | | PDT | | | | +-------+ +--------+---+---+ +---+---+ | | | +---+---+ + +-------+ +-------+---+---+ | famotidine (PEPCID) tablet 20 | Given | | 20 mg | | | | mg 20 mg, Oral, 2 TIMES DAILY, | | 8 21:46 | | | | | First dose on Thu12/09/17 at | | PDT | | | | | 2100, Post-op/Phase II | | | | | | + +-------+ +-------+---+---+ +-------+ +-------+---+---+ | Given | | 20 mg | | | | | 8 9:41 | | | | | | PDT | | | | +-------+ +-------+---+---+ +---+---+ | | | +---+---+ + +-------+ +--------+---+---+ | ferrous gluconate (FERGON) | Given | | 324 mg | | | | tablet 324 mg 324 mg, Oral, 3 | | 8 9:42 | | | | | TIMES DAILY, First dose on Thu | | PDT | | | | | 12/09/17 at 2100, Post-op/Phase II | | | | | | + +-------+ +--------+---+---+ +---+---+ | | | +---+---+ + +-------+ +--------+---+---+ | gabapentin (NEURONTIN) capsule | Given | | 600 mg | | | | 600 mg 600 mg, Oral, ONCE, Thu | | 8 13:16 | | | | | 12/09/17 at 1300, For 1 dose, | | PDT | | | | | Pre-op | | | | | | + +-------+ +--------+---+---+ +---+---+ | | | +---+---+ + +-------+ +--------+---+---+ | HYDROmorphone (DILAUDID) | Given | | 0.2 mg | | | | injection 0.2-0.5 mg 0.2-0.5 mg, | | 8 19:00 | | | | | Intravenous, EVERY 5 MIN PRN, | | PDT | | | | | Pain, Starting Thu12/09/17 at | | | | | | | 1740, Maximum total dose 4 mg. | | | | | | | PACU IV Narcotic Priority: Only | | | | | | | use fentanyl for immediate | | | | | | | post-op pain (one dose) or | | | | | | | breakthrough pain when any other | | | | | | | IV narcotics ordered have been | | | | | | | ineffective (if ordered). If | | | | | | | both morphine and hydromorphone | | | | | | | are ordered, use morphine first, | | | | | | | and use hydromorphone if morphine | | | | | | | ineffective. | | | | | | + +-------+ +--------+---+---+ +-------+ +--------+---+---+ | Given | | 0.2 mg | | | | | 8 19:08 | | | | | | PDT | | | | +-------+ +--------+---+---+ | Given | | 0.2 mg | | | | | 8 19:29 | | | | | | PDT | | | | +-------+ +--------+---+---+ +---+---+ | | | +---+---+ + +---------+ +--------+-------+---+ | lactated ringers (LR) infusion | New Bag | | 1,000 | 100 | | | at 100 mL/hr, Intravenous, | | 8 13:32 | mLs | mL/hr | | | CONTINUOUS, Starting 12/09/17 | | PDT | | | | | at 1300 | | | | | | + +---------+ +--------+-------+---+ +---------+ +---+-------+---+ | New Bag | | | 100 | | | | 8 20:30 | | mL/hr | | | | PDT | | | | +---------+ +---+-------+---+ +---+---+ | | | +---+---+ + +-------+ +-------+---+---+ | lisinopril (PRINIVIL, ZESTRIL) | Given | | 10 mg | | | | tablet 10 mg 10 mg, Oral, DAILY, | | 8 9:42 | | | | | First dose on Thu12/09/17 at | | PDT | | | | | 2029, Post-op/Phase II | | | | | | + +-------+ +-------+---+---+ +---+---+ | | | +---+---+ + +-------+ +---------+---+---+ | menthol (HALLS COUGH DROP) | Given | | 1 | | | | lozenge 1 lozenge 1 lozenge, | | 8 1:59 | lozenge | | | | Buccal, EVERY 2 HOURS PRN, Sore | | PDT | | | | | Throat, Starting Thu12/09/17 at | | | | | | | 2011, Post-op/Phase II | | | | | | + +-------+ +---------+---+---+ +---+---+ | | | +---+---+ + +-------+ +--------+---+---+ | mesalamine (PENTASA) CR capsule | Given | | 500 mg | | | | 500 mg 500 mg, Oral, 3 TIMES | | 8 9:41 | | | | | DAILY, First dose on Thu12/09/17 | | PDT | | | | | at 2100, Post-op/Phase II | | | | | | + +-------+ +--------+---+---+ +---+---+ | | | +---+---+ + +-------+ +-------+---+---+ | methylPREDNISolone (MEDROL) | Given | | 20 mg | | | | tablet 20 mg 20 mg, Oral, ONCE, | | 8 9:41 | | | | | [place] 12/10/17 at 0915, For 1 dose | | PDT | | | | + +-------+ +-------+---+---+ +---+---+ | | | +---+---+ + +-------+ +------+---+---+ | oxyCODONE (ROXICODONE) tablet | Given | | 5 mg | | | | 5-20 mg 5-20 mg, Oral, EVERY 4 | | 8 21:46 | | | | | HOURS PRN, Pain, Starting Thu | | PDT | | | | | 12/09/17 at 2011, Post-op/Phase II | | | | | | + +-------+ +------+---+---+ +-------+ +-------+---+---+ | Given | | 10 mg | | | | | 8 1:55 | | | | | | PDT | | | | +-------+ +-------+---+---+ | Given | | 15 mg | | | | | 8 6:41 | | | | | | PDT | | | | +-------+ +-------+---+---+ +---+---+ | | | +---+---+ + +-------+ +--------+---+---+ | pramipexole (MIRAPEX) tablet | Given | | 0.5 mg | | | | 0.5 mg 0.5 mg, Oral, NIGHTLY, | | 8 21:46 | | | | | First dose on Thu12/09/17 at | | PDT | | | | | 2100, Post-op/Phase II | | | | | | + +-------+ +--------+---+---+ +---+---+ | | | +---+---+ + +-------+ +--------+---+---+ | tamsulosin (FLOMAX) capsule 0.4 | Given | | 0.4 mg | | | | mg 0.4 mg, Oral, DAILY AFTER | | 8 9:42 | | | | | BREAKFAST, First dose on Thu | | PDT | | | | | 12/09/17 at 2030, May open capsule | | | | | | | and sprinkle over acidic soft | | | | | | | food (applesauce, yogurt) or in a | | | | | | | small quantity of acidic fruit | | | | | | | juice (orange, grape). Do not | | | | | | | crush, chew or dissolve granules. | | | | | | + +-------+ +--------+---+---+ +---+---+ | | | +---+---+ in this encounter
--- OUTSIDE RECORDS SUMMARY | ~2018-02-07 | XMS | Encounter Summary ---
Demographics + + + | Address | [address] | | | [place] [address] | + + + | Home Phone | | + + + | Preferred Language | Unknown | + + + | Marital Status | | + + + | Hoahaoism Affiliation | Unknown | + + + | Race | Unknown | + + + | Ethnic Group | Unknown | + + + Author + + + | Author | [facility] | | | and [place] | + + + | Organization | [facility] | | | and [place] | + + + | Address | Unknown | + + + | Phone | Unavailable | + + + Support + + + + + | Name | Relationship | Address | Phone | + + + + + | Xochitl Gomez | ECON | [address] | | | | | [place] | | | | | [address] | | + + + + + Care Team Providers + +------+ + | Care Real Estate Consultant Name | Role | Phone | + +------+ + | Carlos Javier MD | PCP | | + +------+ + Reason for Visit + + + | Reason | Comments | + + + | Appointment Question | | + + + Encounter Details +--------+ + + + + | Date | Type | Department | Care Team | Description | +--------+ + + + + | 11/24/ | Telephone | [facility] [place] | Eagle Pacheco MD | Appointment Question | | 2018 | | NEUROSURGERY [address] | [address] | | | | | [facility] | [address] [place] | | | | | [place], [place] | [address] | | | | | [address] | | | | | | [phone] | | | +--------+ + + + + Social History + +-------+ +--------+ + | Tobacco Use | Types | Packs/Day | Years | Date | | | | | Used | | + +-------+ +--------+ + | Former Smoker | | | | Quit: 05/10/1967 | + +-------+ +--------+ + + +------+---+---+ | Smokeless Tobacco: | Chew | | | | Former User | | | | + +------+---+---+ + + +---------+ + | Alcohol Use [...] + + + as of this encounter Functional Status + + + + | Functional Status | Response | Date of Assessment | + + + + | Are you deaf or do you have serious | No | 09/04/2017 | | difficulty hearing? | | | + + + + | Are you blind or do you have serious | No | 09/04/2017 | | difficulty seeing, even when wearing | | | | glasses? | | | + + + + | Do you have serious difficulty walking or | No | 09/04/2017 | | climbing stairs? (5 years old or older) | | | + + + + | Do you have difficulty dressing or bathing? | No | 09/04/2017 | | (5 years old or older) | | | + + + + | Because of a physical, mental, or emotional | No | 09/04/2017 | | condition, do you have difficulty [...] physical, mental, or emotional | No | 09/04/2017 | | condition, do you have serious difficulty | | | | concentrating, remembering, or making | | | | decisions? (5 years old or older) | | | + + + + as of this encounter Plan of Treatment +--------+---------+ + + + | Date | Type | Specialty | Care Team | Description | +--------+---------+ + + + | 03/02/ | Office | Neurosurgery | Eagle Pacheco MD | | | 2018 | Visit | | [address] [facility] | | | | | | [address] [place] | | | | | | [phone] | | | | | | | | +--------+---------+ + + + as of this encounter Visit Diagnoses Not on filein this encounter"
--- OUTSIDE RECORDS SUMMARY | ~2018-02-07 | XMS | Encounter Summary ---
Demographics + + + | Address | [address] | | | [place] [address] | + + + | Home Phone | | + + + | Preferred Language | Unknown | + + + | Marital Status | | + + + | Shinto Affiliation | Unknown | + + + | Race | Unknown | + + + | Ethnic Group | Unknown | + + + Author + + + | Author | [facility] | | | and [place] | + + + | Organization | [facility] | | | and [place] [...] [place] | | | | | [address] | | + + + + + Care Team Providers + +------+ + | Care Inventory Worker Name | Role | Phone | + [...] | | | | | | | UT | | | | | | | ARTHRODESIS | | | | | | | ANT | | | | | | | INTERBODY | | | | | | | INC | | | | | | | DISCECTOMY, | | | | | | | CERVICAL | | | | | | | BELOW C2 UT | | | | | | | ARTHRODESIS | | | | | | | ANT | | | | | | | INTERBODY | | | | | | | INC | | | | | | | DISCECTOMY, | | | | | | | CERVICAL | | | | | | | BELOW C2 UT | | | | | | | [...] | | | | | | | UT ALLOGRAFT | | | | | | [...] | | | | | | SEGMENTS UT | | | | | | | INSJ | | | | | | | BIOMCHN DEV | | | | | | | INTERVERTEBR | | | | | | | AL DSC SPC | | | | | | | W/ARTHRD UT | | | | | | | INSJ | | | | | | | BIOMCHN DEV | | | | | | | INTERVERTEBR | | | | | | | AL DSC SPC | | | | | | | W/ARTHRD UT | | | | | | | INSJ | | | | | | | BIOMCHN DEV | | | | | | | INTERVERTEBR | | | | | | | AL DSC SPC | | | | | | | W/ARTHRD UT | | | | | | | [...] | | | | | | SEGMENTS UT | | | | | | | [...] + + + + | 12/09/ | Anesthesia | [facility] | Marli Ray | | | 2018 | Event | [facility] | Michi [place] MD [address] | | | | | [address] | [address] [place] | | | | | [place], [place] | [place] [address] | | | | | [address] | [phone] | | | | | [phone] | | | +--------+ + + + + Anesthesia Record + + + + + | Procedure Name | Responsible | Anesthesia Start | Anesthesia Stop Time | | | Anesthesiologist | Time | | + + + + + | C3-4, C4-5, C6-7 | Marli Ray | 12/09/17 1530 | 12/09/17 1803 | | Anterior Cervical | MD JOSE | | | | Discectomy Fusion w/ | | | | | C5-6 Hardware | | | | | Revision (N/A Neck) | | | | + + + + + +----+---+ + + | Da | T | Event | Comment | | te | i | | | | | m | | | | | e | | | +----+---+ + + | 07 | 1 | An Checkout | Pre-use anesthesia machine/equipment checkout. | | /1 | 5 | | | | 8/ | 1 | | | | 20 | 1 | | | | 18 | | | | +----+---+ + + | | 1 | An Start | Reassessment prior to anesthesia induction/procedure. | | | 5 | | | | | 3 | | | | | 0 | | | +----+---+ + + | | 1 | Antibiotic | | | | 5 | Given | | | | 3 | | | | | 1 | | | +----+---+ + + | | 1 | An Start | | | | 5 | Data | | | | 3 | | | | | 2 | | | +----+---+ + + | | 1 | Preoxygenat | | | | 5 | ed | | | | 3 | | | | | 3 | | | +----+---+ + + | | 1 | An | | | | 5 | Induction | | | | 3 | | | | | 4 | | | +----+---+ + + | | 1 | An | | | | 5 | Intubation | | | | 3 | | | | | 5 | | | +----+---+ + + | | 1 | AN Bite | | | | 5 | Block | | | | 3 | | | | | 6 | | | +----+---+ + + | | 1 | Picacho | | | | 5 | 43-degrees | | | | 5 | | | | | 1 | | | +----+---+ + + | | 1 | Pre-Procedu | | | | 5 | ral Timeout | | | | 5 | Completed | | | | 5 | | | +----+---+ + + | | 1 | First | | | | 5 | Inc/Proc St | | | | 5 | | | | | 7 | | | +----+---+ + + | | 1 | Picacho off | | | | 7 | | | | | 5 | | | | | 5 | | | +----+---+ + + | | 1 | AN No | TOF 4/4 with sustained tetanus. | | | 7 | Residual | | | | 5 | NMB | | | | 5 | | | +----+---+ + + | | 1 | an stop | | | | 7 | data | | | | 5 | | | | | 5 | | | +----+---+ + + | | 1 | An Stop | Patient handed off to recovery nurse. | | | 0 | | | | | 3 | | | +----+---+ + + +------+ | Meds | +------+ + + + | Name | Total | + + + | Phenylephrine 100mcg/mL SYRINGE | 300 mcg | + + + | propofol (DIPRIVAN) injection | 230 mg | | (bolus) (20 mL) | | + + + | propofol | 445.8 mg | + + + | dexmedetomidine (Bolus) | 50 mcg | + + + | dexamethasone (PF) injection 10 | 10 mg | | mg/mL | | + + + | ceFAZolin (ANCEF, KEFZOL) 100 | 2 g | | mg/mL IV syringe 2 g | | + + + | rocuronium | 50 mg | + + + | lidocaine 2% | 100 mg | + + + | hydrocortisone | 100 mg | + + + | glycopyrrolate (ROBINUL) | 200 mcg | | injection (5 mL vial) | | + + + | magnesium sulfate | 2 g | + + + | sugammadex (BRIDION) injection (2 | 200 mg | | mL vial) | | + + + | tranexamic acid | 1,000 mg | + + + | lactated ringers (LR) infusion | 1,400 mL | + + + + + | Name | + + | N2O Flow Rate (L/Min) | + + | O2 Flow Rate (L/Min) | + + | Insp O2 | + + | Exp SEV | + + | Air Flow Rate (L/Min) | + + + + | No blood administrations on file. | + + +--------+ + + + | Type | Details | Placement | Removal | +--------+ + + + | Periph | 12/09/17; 1331; Right; Forearm; | 12/09/17 1331 by | 12/10/17 1138 by | | eral | [id number] catheter system; | Lolly Benítez RN | Hema Ordonez RN | | IV | 20 gauge; 1; rfa; distraction, | | | | | intradermal injection; no longer | | | | | indicated, catheter/device | | | | | intact; short term use; 12/10/17; | | | | | 1138 | | | +--------+ + + + | Airway | Placement Date: 12/09/17; | 12/09/171534 by | 12/09/17 1820 by | | | Placement Time: 1534 (created via | Marli Ray | Taylor Allison, ISABEL | | | procedure documentation); Mask | MD JOSE | | | | Ventilation: EZ; Airway Grade: 1; | | | | | Successful Technique: video | | | | | scope; Laryngoscope Blade Size: | | | | | 4; Attempts: 1; Airway Type: | | | | | endotracheal; Size: 6.5; Airway | | | | | Tube Secured At: 24; Trauma: | | | | | none; Other Equipment: bougie; | | | | | Placement Check: exhaled CO2 | | | | | detection device, bilateral chest | | | | | rise, breath sounds equal | | | | | bilaterally; Removal: per order, | | | | | removed by RN, per protocol; | | | | | Removal Date: 12/09/17; Removal | | | | | Time: 1820 | | | +--------+ + + + | Incisi | 12/09/17; 1615; neck; healing | 12/09/17 1615 by | 12/10/17 1140 by | | on | within expectations; 12/10/17; | Cathleen Silva RN | Hema Ordonez RN | | | 1140 | | | +--------+ + + + | Drain/ | 12/09/17; 1729; #1; posterior; | 12/09/17 1729 by | 12/10/17 1141 by | | Device | back; collapsible closed device; | Cathleen Silva RN | Hema Ordonez RN | | Site | tip intact; short term use; | | | | | 12/10/17; 1141 | | | +--------+ + + + in this encounter Social History + +-------+ +--------+ + | [...] Description | +--------+---------+ + + + | Office | Neurosurgery | Eagle Pacheco MD | | | 2018 | Visit | | [address] [facility] | | | | | | [address] [place], [place] | | | | | | [address] | | | | | | | | +--------+---------+ + + + as of this encounter Results Anesthesia Airway Note (12/09/2017 1624) + + + | Narrative | Performed At | + + + | Marli Ray II, MD 12/09/2017 16:24 Anesthesia Airway | | | Placement 12/09/2017 15:35 Preprocedure check: patient | | | identified, oxygen, airway assessed, patient reassessment prior to | | | induction, airway equipment checked and suction Rapid Sequence | | | Induction: no Mask ventilation: easy Successful technique: | | | videoscope Laryngoscope blade size: 4 Airway grade: 1 (Full view | | | of glottis) Other equipment: bougie Attempts: 1 Airway type: | | | endotracheal Size: 6.5 Cuffed: cuffed Route, reference point: | | | center of mouth Tube depth: 24 cm Tube secured with: adhesive tape | | | Trauma: none Tube placement verification: bilateral chest rise, equal | | | bilateral breath sounds and carbon dioxide detection Performing | | | provider: MARLI RAY II Electronically Signed by: | | | Marli Ray II, | | | MD Montero | | | date/time: 12/09/2017 16:24 | | + + + + + | Procedure Note | + + | Marli Ray II, MD - 12/09/2017 1624 PDT Anesthesia Airway Placement12/09/2017 | | 15:35Preprocedure check: patient identified, oxygen, airway assessed, patient | | reassessment prior to induction, airway equipment checked and suctionRapid Sequence | | Induction: noMask ventilation: easySuccessful technique: videoscopeLaryngoscope blade | | size: 4 Airway grade: 1 (Full view of glottis)Other equipment: bougieAttempts: 1Airway | | type: endotrachealSize: 6.5Cuffed: cuffedRoute, reference point: center of mouthTube | | depth: 24 cmTube secured with: adhesive tapeTrauma: noneTube placement verification: | | bilateral chest rise, equal bilateral breath sounds and carbon dioxide | | detectionPerforming provider: MARLI RAY IIElectronically Signed by: Marli Peralta | | JOSE Ray MD ESig date/time: 12/09/2017 16:24 | |Attempts: 1 | |Airway type: endotracheal | |Size: 6.5 | |Cuffed: cuffed | |Route, reference point: center of mouth | |Tube depth: 24 cm | |Tube secured with: adhesive tape | |Trauma: none | |Tube placement verification: bilateral chest rise, equal bilateral breath sounds and carbon dioxide detection | |Performing provider: MARLI RAY II | | | | | |Electronically Signed by: Marli Ray II, MD ESig date/time : 12/09/2017 16:24 | | | + + in this encounter Visit Diagnoses Not on filein this encounter Administered Medications + +--------+ +------+------+------+ | Medication Order | MAR | Action | Dose | Rate | Site | | | Action | Date | | | | + +--------+ +------+------+------+ | ceFAZolin (ANCEF, KEFZOL) 100 | Given | | 2 g | | | | mg/mL IV syringe 2 g 2 g, | | 8 15:31 | | | | | Intravenous, Administer over 30 | | PDT | | | | | Minutes, Prior to Incision, | | | | | | | Starting 12/09/17 at 0600, For | | | | | | | 1 dose, Administer within 1 hour | | | | | | | of surgical incision. | | | | | | + +--------+ +------+------+------+ +---+---+ | | | +---+---+ + +-------+ +-------+---+---+ | dexamethasone (PF) 10 mg/mL | Given | | 10 mg | | | | injection Intravenous, PRN, | | 8 15:30 | | | | | Starting 12/09/17 at 1530, | | PDT | | | | | Anesthesia Intra-op | | | | | | + +-------+ +-------+---+---+ +---+---+ | | | +---+---+ + +-------+ +--------+---+---+ | dexmedetomidine (PRECEDEX) in | Given | | 50 mcg | | | | sodium chloride bolus infusion | | 8 15:30 | | | | | Intravenous, PRN, Starting Wed | | PDT | | | | | 12/09/17 at 1530, Anesthesia | | | | | | | Intra-op | | | | | | + +-------+ +--------+---+---+ +---+---+ | | | +---+---+ + +-------+ +---------+---+---+ | glycopyrrolate (ROBINUL) | Given | | 200 mcg | | | | injection Intravenous, PRN, | | 8 15:44 | | | | | Secretions, Starting 12/09/17 | | PDT | | | | | at 1544, Anesthesia Intra-op | | | | | | + +-------+ +---------+---+---+ +---+---+ | | | +---+---+ + +-------+ +--------+---+---+ | hydrocortisone (PF) | Given | | 100 mg | | | | (solu-CORTEF) injection | | 8 15:37 | | | | | Intravenous, PRN, Starting Wed | | PDT | | | | | 12/09/17 at 1537, Anesthesia | | | | | | | Intra-op | | | | | | + +-------+ +--------+---+---+ +---+---+ | | | +---+---+ + +-------+ +--------+---+---+ | lidocaine (PF) 2% injection | Given | | 100 mg | | | | Intravenous, PRN, Starting Wed | | 8 15:30 | | | | | 12/09/17 at 1530, Anesthesia | | PDT | | | | | Intra-op | | | | | | + +-------+ +--------+---+---+ +---+---+ | | | +---+---+ + +-------+ +-----+---+---+ | magnesium sulfate 500 mg/mL | Given | | 2 g | | | | injection Intravenous, PRN, | | 8 15:44 | | | | | Starting 12/09/17 at 1544, | | PDT | | | | | Anesthesia Intra-op | | | | | | + +-------+ +-----+---+---+ +---+---+ | | | +---+---+ + +-------+ +---------+---+---+ | phenylephrine (KAPIL-SYNEPHRINE) | Given | | 100 mcg | | | | 100 mcg/mL injection | | 8 15:40 | | | | | Intravenous, PRN, Starting Wed | | PDT | | | | | 12/09/17 at 1540, Anesthesia | | | | | | | Intra-op | | | | | | + +-------+ +---------+---+---+ +-------+ +---------+---+---+ | Given | | 100 mcg | | | | | 8 15:44 | | | | | | PDT | | | | +-------+ +---------+---+---+ | Given | | 100 mcg | | | | | 8 16:23 | | | | | | PDT | | | | +-------+ +---------+---+---+ +---+---+ | | | +---+---+ + +-------+ +-------+---+---+ | propofol (DIPRIVAN) injection | Given | | 20 mg | | | | Intravenous, PRN, Starting Wed | | 8 15:33 | | | | | 12/09/17 at 1530, Anesthesia | | PDT | | | | | Intra-op | | | | | | + +-------+ +-------+---+---+ +-------+ +--------+---+---+ | Given | | 50 mg | | | | | 8 15:34 | | | | | | PDT | | | | +-------+ +--------+---+---+ | Given | | 100 mg | | | | | 8 17:15 | | | | | | PDT | | | | +-------+ +--------+---+---+ +---+---+ | | | +---+---+ + +---------+ + +-------+---+ | propofol (DIPRIVAN) injection | New Bag | | 200 | 89.2 | | | Intravenous, CONTINUOUS PRN, | | 8 15:30 | mcg/kg/m | mL/hr | | | Starting 12/09/17 at 1530, | | PDT | in | | | | Anesthesia Intra-op | | | | | | + +---------+ + +-------+---+ +---+---+ | | | +---+---+ + +-------+ +-------+---+---+ | rocuronium (ZEMURON) injection | Given | | 50 mg | | | | Intravenous, PRN, Ventilator | | 8 15:31 | | | | | Dyssynchrony, Starting Wed | | PDT | | | | | 12/09/17 at 1531, Anesthesia | | | | | | | Intra-op | | | | | | + +-------+ +-------+---+---+ +---+---+ | | | +---+---+ + +-------+ +--------+---+---+ | sugammadex (BRIDION) injection | Given | | 200 mg | | | | PRN, Starting Thu12/09/17 at | | 8 17:51 | | | | | 1751, Anesthesia Intra-op | | PDT | | | | + +-------+ +--------+---+---+ +---+---+ | | | +---+---+ + +-------+ + +---+---+ | tranexamic acid (CYKLOKAPRON) | Given | | 1,000 mg | | | | injection Intravenous, | | 8 17:32 | | | | | Administer over 15 Minutes, PRN, | | PDT | | | | | Starting Thu12/09/17 at 1732, | | | | | | | Anesthesia Intra-op | | | | | | + +-------+ + +---+---+ +---+---+ | | | +---+---+ in this encounter"
--- OUTSIDE RECORDS SUMMARY | ~2018-02-07 | XMS | Clinical Summary ---
Demographics + + + | Address | [address] | | | [place] [address] | + + + | Home Phone | | + + + | Preferred Language | Unknown | + + + | Marital Status | | + + + | Anabaptist Affiliation | [id number] | + + + | Race | Unknown | + + + | Ethnic Group | Unknown | + + + Author + + + | Author | [facility] | + + + | Organization | [facility] | + + + | Address | Unknown | + + + | Phone | Unavailable | + + + Support + + + + + | Name | Relationship | Address | Phone | + + + + + | Xochitl Gomez | ECON | [address] | | | | | [place], [place] | | | | | [address] | | + + + + + | Detailed,Message | ECON | Unknown | | + + + + + Care Team Providers + +------+ + | Care Metal Tester Name | Role | Phone | + +------+ + | Carlos Javier MD | PP | | + +------+ + Allergies No Known Allergies Current Medications + + +-------+---------+------+------+-------+ | Prescription | Sig. | Disp. | Refills | Star | End | Statu | | | | | | t | Date | s | | | | | | Date | | | + + +-------+---------+------+------+-------+ | naproxen sodium | Take 220 mg by mouth | | | | | Activ | | (ANAPROX) 220 MG | 2 (two) times daily | | | | | e | | tablet | with meals. | | | | | | + + +-------+---------+------+------+-------+ | acetaminophen | Take 500 mg by mouth | | | | | Activ | | (TYLENOL) 500 MG | every 6 (six) hours | | | | | e | | tablet | as needed for Pain. | | | | | | + + +-------+---------+------+------+-------+ | citalopram | Take 20 mg by mouth | | | | | Activ | | (CELEXA) 20 MG | every morning. | | | | | e | | tablet | | | | | | | + + +-------+---------+------+------+-------+ | | Take 1 tablet by | | | | | Activ | | HYDROcodone-acetamin | mouth every 6 (six) | | | | | e | | ophen (NORCO) 10-325 | hours as needed for | | | | | | | MG per tablet | Pain. | | | | | | + + +-------+---------+------+------+-------+ Active Problems + + + | Problem | Noted Date | + + + | Lumbar radiculitis | 08/30/2014 | + + + + + | Last Assessment & Plan: The patient has significant axial | | back pain. This patient has MRI documented multilevel lumbar | | degenerative disk disease with multiple small disk protrusions | | that combined with significant facet arthropathy to cause | | multilevel neural foraminal and lateral recess narrowing as well | | as moderate central stenosis at the L3-4 level. He was having | | intermittent lower extremity radicular pain in the primarily | | right L4 and bilateral L5-S1 distributions. He underwent a caudal | | with catheter lumbar epidural steroid injection targeting | | bilateral L4, L5, and S1 nerve roots on September 05, 2014. He | | reports that this procedure did provide significant relief of his | | radicular symptoms. He now mainly complains of axial mechanical | | pain with some pain radiating to his posterior thighs but does | | not go beyond his knees. He has not tried physical therapy. We | | will have him try core strengthening physical therapy and if no | | further improvement then we will consider diagnostic median | | branch blocks and if efficacious radiofrequency neurotomies. | + + + + + | Lumbar degenerative disc disease | 08/30/2014 | + + + + + | Last Assessment & Plan: Please see discussion under lumbar | | radicular pain | + + + + + | Facet arthropathy, lumbar | 08/30/2014 | + + + + + | Last Assessment & Plan: Please see discussion under lumbar | | radicular pain | + + + + + | Lumbar herniated disc | 08/30/2014 | + + + + + | Last Assessment & Plan: Please see discussion under lumbar | | radicular pain | + + + + + | Lumbar spinal stenosis | 08/30/2014 | + + + + + | Last Assessment & Plan: Please see discussion under lumbar | | radicular pain | + + + + + | Spondylolisthesis of lumbar region | 08/30/2014 | + + + + + | Last Assessment & Plan: Please see discussion under lumbar | | radicular painLumbar flexion extension x-rays did not show any | | significant instability. | + + Family History + + +------+ + | Medical History | Relation | Name | Comments | + + +------+ + | Stroke | Maternal | | | | | Grandfath | | | | | er | | | + + +------+ + | Stroke | Paternal | | | | | Grandmoth | | | | | er | | | + + +------+ + + +------+ + + | Relation | Name | Status | Comments | + +------+ + + | Father | | | | + +------+ + + | Maternal Grandfather | | | | + +------+ + + | Mother | | | | + +------+ + + | Paternal Grandmother | | | | + +------+ + + Social History + +-------+ +--------+------+ | Tobacco Use | Types | Packs/Day | Years | Date | | | | | Used | | + +-------+ +--------+------+ | Never Smoker | | | | | + +-------+ +--------+------+ + +---+---+---+ | Smokeless Tobacco: | | | | | Current User | | | | + +---+---+---+ + + +---------+ + | Alcohol Use | Drinks/We | oz/Week | Comments | | | ek | | | + + +---------+ + | Yes | 2 | 1.0 | | | | Standard | | | | | drinks or | | | | | | | | | | equivalen | | | | | t | | | + + +---------+ + + + + | Sex Assigned at | Date Recorded | | | | + + + | Not on file | | + + + Last Filed Vital Signs + + + + | Vital Sign | Reading | Time Taken | + + + + | Blood Pressure | 144/77 | 11/23/2014 8:56 AM PDT | + + + + | Pulse | 51 | 09/05/2014 10:51 AM PDT | + + + + | Temperature | 36.3 C (97.3 F) | 09/05/2014 9:52 AM PDT | + + + + | Respiratory Rate | 15 | 09/05/2014 10:51 AM PDT | + + + + | Oxygen Saturation | 97% | 09/05/2014 10:51 AM PDT | + + + + | Inhaled Oxygen | - | - | | Concentration | | | + + + + | Weight | 71.4 kg (157 lb 4.8 | 11/23/2014 8:56 AM PDT | | | oz) | | + + + + | Height | 180.3 cm (5' 11") | 11/23/2014 8:56 AM PDT | + + + + | Body Mass Index | 21.94 | 11/23/2014 8:56 AM PDT | + + + + Plan of Treatment + + + + + | Health Maintenance | Due Date | Last Done | Comments | + + + + + | Vaccine: | | | | | Dtap/Tdap/Td (1 - | 7 | | | | Tdap) | | | | + + + + + | Vaccine: Zoster (1 | | | | | of 2) | 8 | | | + + + + + | Vaccine: | | | | | Pneumococcal 65+ | 3 | | | | Low/Medium Risk (1 | | | | | of 2 - PCV13) | | | | + + + + + | Vaccine: Influenza | | | | | (#1) | 8 | | | + + + + + Results Not on filefrom Last 3 Months Insurance + +--------+ +------+-------+ + | Payer | Benefi | Subscriber | Type | Phone | Address | | | t Plan | ID | | | | | | / | | | | | | | Group | | | | | + +--------+ +------+-------+ + | [employer] [place] [employer] | L&[employer] - | [phone] | | | | | | [place] | | | | | | | [employer] | | | | | + +--------+ +------+-------+ + | MEDICARE | MEDICA | [id number] | | | [place] [address] | | | [place] | | | | [place] [phone] | | | IP-OP | | | | | + +--------+ +------+-------+ + + +--------+ +--------+ + + | Guarantor Name | Accoun | Relation to | Date | Phone | Billing Address | | | t Type | Patient | of | | | | | | | | | | + +--------+ +--------+ + + | MORGAN KOHLER | Person | Self [birth year] | Home: | [address] | | | al/Fam | | 8 | +- | [place] [address] | | | jayla | | | [birth year] | | + +--------+ +--------+ + + | MORGAN KOHLER | Worker | Self | [birth year] | Home: | [address] | | | s Comp | | 1940 | +- | [place] [address] | | | | | | [address] | | + +--------+ +--------+ + +
--- OUTSIDE RECORDS SUMMARY | ~2018-02-07 | XMS | Encounter Summary ---
Demographics + + + | Address | [address] | | | [place] [address] | + + + | Home Phone | | + + + | Preferred Language | Unknown | + + + | Marital Status | | + + + | Mandaen Affiliation | Unknown | + + + | Race | Unknown | + + + | Ethnic Group | Unknown | + + + Author + + + | Author | [facility] | | | and [place] | + + + | Organization | [facility] | | | and [place] | [...] [place] | | | | | [address] | | + + + + + Care Team Providers + +------+ + | Care Tripe Cooker Name | Role | Phone | + +------+ + | Carlos Javier MD | PCP | | + +------+ + Reason for Visit + + + | Reason | Comments | + + + | Pre-op Exam | | + + + Encounter Details +--------+ + + + + | Date | Type | Department | Care Team | Description | +--------+ + + + + | 11/12/ | Telephone | [facility] | Eagle Pacheco MD | Pre-op Exam | | 2018 | | NEUROSURGERY [address] | [address] | | | | | [address] | [address] [place], [place] | | | | | [place], [place] | [address] | | | | | [address] | | | | | | [phone] | | | +--------+ + + + [...] 2018 | Visit | | [address] [facility] | | | | | | [address] [place] | | | | | | [address] | | | | | | | | +--------+---------+ + + + as of this encounter Visit Diagnoses Not on filein this encounter"
--- OUTSIDE RECORDS SUMMARY | ~2018-02-07 | XMS | Encounter Summary ---
Demographics + + + | Address | [address] | | | [place] [address] | + + + | Home Phone | | + + + | Preferred Language | Unknown | + + + | Marital Status | | + + + | Moravian Affiliation | Unknown | + + + | Race | Unknown | + + + | Ethnic Group | Unknown | + + + Author + + + | Author | [facility] | | | and [place] | + + + | Organization | [facility] | | | and [place] [...] [place] | | | | | [address] | | + + + + + Care Team Providers + +------+ + | Care Home Service Consultant Name | Role | Phone | + +------+ + | Carlos Javier MD | PCP | | + +------+ + Encounter Details +--------+ + + + + | Date | Type | Department | Care Team | Description | +--------+ + + + + | 12/01/ | Preadmit | [facility] | Eagle Pacheco MD | Preoperative | | 2018 | Visit | [facility] | [address] [place] | clearance (Primary | | | | CLINIC [address] | [address] [place] | Dx); Cervical | | | | [place], [place] | [address] | spondylosis with | | | | [address] | | myelopathy; S/P | | | | [phone] | | cervical spinal | | | | | | fusion; Neuropathy; | | | | | | Decreased glomerular | | | | | | filtration rate | | | | | | (GFR); Cervical | | | | | | spinal stenosis; H/O | | | | | | Cervical Fusion - | | | | | | C5-6 - 2008; Anemia, | | | | | | unspecified type; | | | | | | Dyspnea, unspecified | | | | | | type; Fatigue, | | | | | | unspecified type | +--------+ + + + + Social [...] 2017 | Visit | | [address] [facility] | | | | | | [address] [place] | | | | | | [address] | | | | | | | | +--------+---------+ + + + as of this encounter Procedures + +--------+ + + + | Procedure Name | Priori | Date/Time | Associated Diagnosis | Comments | | | ty | | | | + +--------+ + + + | ECG 12 LEAD | Routin | 12/01/2017 | Neuropathy | Results for this | | | e | 1513 PDT | Cervical spondylosis | procedure are in the | | | | | with myelopathy | results section. | | | | | Decreased glomerular | | | | | | filtration rate | | | | | | (GFR) Cervical | | | | | | spinal stenosis H/O | | | | | | Cervical Fusion - | | | | | | C5-6 - 2008 Anemia, | | | | | | unspecified type | | | | | | Dyspnea, unspecified | | | | | | type Fatigue, | | | | | | unspecified type | | + +--------+ + + + | CULTURE, MRSA | Routin | 12/01/2017 | Preoperative | Results for this | | | e | 1458 PDT | clearance | procedure are in the | | | | | | results section. | + +--------+ + + + | CBC WITH | Routin | 12/01/2017 | Neuropathy | Results for this | | DIFFERENTIAL | e | 1457 PDT | Cervical spondylosis | procedure are in the | | | | | with myelopathy | results section. | | | | | Decreased glomerular | | | | | | filtration rate | | | | | | (GFR) Cervical | | | | | | spinal stenosis H/O | | | | | | Cervical Fusion - | | | | | | C5-6 - 2007 Anemia, | | | | | | unspecified type | | + +--------+ + + + | BASIC METABOLIC | Routin | 12/01/2017 | Neuropathy | Results for this | | PANEL | e | 1457 PDT | Cervical spondylosis | procedure are in the | | | | | with myelopathy | results section. | | | | | Decreased glomerular | | | | | | filtration rate | | | | | | (GFR) Cervical | | | | | | spinal stenosis H/O | | | | | | Cervical Fusion - | | | | | | C5-6 - 2007 Anemia, | | | | | | unspecified type | | + +--------+ + + + in this encounter Results ECG 12 lead (12/01/2017 1513) + + + + + | Component | Value | Ref Range | Performed At | + + + + + | VENTRICULAR RATE EKG | 58 | BPM | [facility] | + + + + + | ATRIAL RATE | 58 | BPM | [facility] | + + + + + | P-R INTERVAL | 170 | ms | [facility] | + + + + + | QRS DURATION | 88 | ms | [facility] | + + + + + | Q-T INTERVAL | 432 | ms | [facility] | + + + + + | Q-T INTERVAL | 424 | ms | [facility] | | (CORRECTED) | | | | + + + + + | P WAVE AXIS | 73 | degrees | [facility] | + + + + + | QRS AXIS | -43 | degrees | [facility] | + + + + + | T AXIS | 35 | degrees | [facility] | + + + + + | INTERPRETATION TEXT | Sinus bradycardia with | | [facility] | | | premature atrial | | | | | complexesLeft axis | | | | | deviationNonspecific ST | | | | | abnormalityAbnormal | | | | | ECGWhen compared with | | | | | ECG of 15-SEP-2017 | | | | | 14:16,premature atrial | | | | | complexes are now | | | | | presentNonspecific ST | | | | | abnormality is now | | | | | present :cannot exclude | | | | | ischemiaConfirmed by | | | | | MORGAN GARNER MD ([id number]) | | | | | on 12/02/2017 6:25:38 AM | | | + + + + + + + + | Narrative | Performed At | + + + | | | + + + + +---------+ + + | Performing | Address | City/State/Zipcode | Phone Number | | Organization | | | | + +---------+ + + | [facility] | | | | + +---------+ + + Culture, MRSA (12/01/2017 1458) + + + + + | Component | Value | Ref Range | Performed At | + + + + + | Culture | Negative for MRSA by | | [facility] | | | chromogenic agar method | | [facility] | | | | | CENTER - | | | | | LABORATORY | + + + + + | Culture | 3+ Coagulase positive | | [facility] | | | Staphylococcus | | [facility] | | | | | CENTER - | | | | | LABORATORY | + + + + + + + | Specimen | + + | Tissue - Nares | + + + + + + + | Performing | Address | City/State/Zipcode | Phone Number | | Organization | | | | + + + + + | [facility] | [address] | [place], [place] | [phone] | | [facility] | | [address] | | | - LABORATORY | | | | + + + + + | [facility] | [address] | [place], [place] | | | [facility] | | [address] | | | - LABORATORY | | | | + + + + + CBC with Differential (12/01/20171456) + + + + + | Component | Value | Ref Range | Performed At | + + + + + | WBC | 6.0 | 4.0 - 11.0 K/uL | [facility] | | | | | [facility] | | | | | CENTER - | | | | | LABORATORY | + + + + + | RBC | 4.51 | 4.30 - 5.70 M/uL | [facility] | | | | | [facility] | | | | | CENTER - | | | | | LABORATORY | + + + + + | Hgb | 11.8 (L) | 13.5 - 18.0 g/dL | [facility] | | | | | [facility] | | | | | CENTER - | | | | | LABORATORY | + + + + + | Hct | 37.3 (L) | 40.0 - 51.0 % | [facility] | | | | | [facility] | | | | | CENTER - | | | | | LABORATORY | + + + + + | MCV | 82.6 (L) | 83.0 - 101.0 fL | [facility] | | | | | [facility] | | | | | CENTER - | | | | | LABORATORY | + + + + + | MCH | 26.3 (L) | 28.0 - 35.0 pg | [facility] | | | | | [facility] | | | | | CENTER - | | | | | LABORATORY | + + + + + | MCHC | 31.8 (L) | 32.0 - 36.0 g/dL | [facility] | | | | | [facility] | | | | | CENTER - | | | | | LABORATORY | + + + + + | RDW-CV | 19.1 (H) | <15.0 % | [facility] | | | | | [facility] | | | | | CENTER - | | | | | LABORATORY | + + + + + | Platelet Count | 277 | 140 - 440 K/uL | [facility] | | | | | [facility] | | | | | CENTER - | | | | | LABORATORY | + + + + + | MPV | 9.0 | fL | [facility] | | | | | [facility] | | | | | CENTER - | | | | | LABORATORY | + + + + + | % Neutrophils | 88.5 (H) | 45.0 - 82.0 % | [facility] | | | | | [facility] | | | | | CENTER - | | | | | LABORATORY | + + + + + | % Lymphocytes | 7.7 (L) | 20.0 - 45.0 % | [facility] | | | | | [facility] | | | | | CENTER - | | | | | LABORATORY | + + + + + | % Monocytes | 3.6 (L) | 4.0 - 12.0 % | [facility] | | | | | [facility] | | | | | CENTER - | | | | | LABORATORY | + + + + + | % Eosinophils | 0.0 | 0.0 - 5.0 % | [facility] | | | | | [facility] | | | | | CENTER - | | | | | LABORATORY | + + + + + | % Basophils | 0.2 | 0.0 - 1.0 % | [facility] | | | | | [facility] | | | | | CENTER - | | | | | LABORATORY | + + + + + | Absolute Neutrophils | 5.30 | 1.80 - 8.50 K/uL | [facility] | | | | | [facility] | | | | | CENTER - | | | | | LABORATORY | + + + + + | Absolute Lymphocytes | 0.50 (L) | 0.60 - 3.20 K/uL | [facility] | | | | | [facility] | | | | | CENTER - | | | | | LABORATORY | + + + + + | Absolute Monocytes | 0.20 | 0.00 - 1.00 K/uL | [facility] | | | | | [facility] | | | | | CENTER - | | | | | LABORATORY | + + + + + | Absolute Eosinophils | 0.00 | 0.00 - 0.40 K/uL | [facility] | | | | | [facility] | | | | | CENTER - | | | | | LABORATORY | + + + + + | Absolute Basophils | 0.00 | 0.00 - 0.10 K/uL | [facility] | | | | | [facility] | | | | | CENTER - | | | | | LABORATORY | + + + + + + + | Specimen | + + | Blood | + + + + + + + | Performing | Address | City/State/Zipcode | Phone Number | | Organization | | | | + + + + + | [facility] | [address] | [place] | [phone] | | [facility] | | [address] | | | - LABORATORY | | | | + + + + + | [facility] | [address] | [place] | | | [facility] | | [address] | | | - LABORATORY | | | | + + + + + Basic Metabolic Panel (12/01/2017 1457) + + + + + | Component | Value | Ref Range | Performed At | + + + + + | NA | 138 | 136 - 149 mmol/L | [facility] | | | | | [facility] | | | | | CENTER - | | | | | LABORATORY | + + + + + | K | 3.2 (L) | 3.5 - 5.1 mmol/L | [facility] | | | | | [facility] | | | | | CENTER - | | | | | LABORATORY | + + + + + | CL | 98 | 98 - 109 mmol/L | [facility] | | | | | [facility] | | | | | CENTER - | | | | | LABORATORY | + + + + + | CO2 | 29 | 24 - 31 mmol/L | [facility] | | | | | [facility] | | | | | CENTER - | | | | | LABORATORY | + + + + + | ANION GAP | 11 | 3 - 16 mmol/L | [facility] | | | | | [facility] | | | | | CENTER - | | | | | LABORATORY | + + + + + | GLUCOSE | 150 (H) | 70 - 109 mg/dL | [facility] | | | | | [facility] | | | | | CENTER - | | | | | LABORATORY | + + + + + | BUN | 11 | 7 - 18 mg/dL | [facility]. | | | | | [facility] | | | | | CENTER - | | | | | LABORATORY | + + + + + | Creatinine, | 0.98 | 0.60 - 1.30 mg/dL | [facility]. | | Serum/Plasma | | | [facility] | | | | | CENTER - | | | | | LABORATORY | + + + + + | eGFR if not | >60Comment: GLOMERULAR | >=60 mL/min/1.73m2 | [facility]. | | [place] | FILTRATION | | [facility] | | | RATE,ESTIMATED mL/min | | CENTER - | | | /1.59w2Mctc than 60 | | LABORATORY | | | Chronic kidney | | | | | disease,if found over a | | | | | 3-month period.Less than | | | | | 15 Kidney | | | | | failureFor | | | | | Americans,multiply the | | | | | calculated GFR by 1.21. | | | | | | | | + + + + + | CALCIUM | 8.8 | 8.3 - 10.5 mg/dL | [facility] | | | | | [facility] | | | | | CENTER - | | | | | LABORATORY | + + + + + | BUN/CREA | 11.2 | | [facility] | | | | | [facility] | | | | | CENTER - | | | | | LABORATORY | + + + + + + + | Specimen | + + | Blood | + + + + + + + | Performing | Address | City/State/Zipcode | Phone Number | | Organization | | | | + + + + + | [facility] | [address] | [place] | [phone] | | [facility] | | [address] | | | - LABORATORY | | | | + + + + + | [facility] | [address] | [place], [place] | | | [facility] | | [address] | | | - LABORATORY | | | | + + + + + in this encounter Visit Diagnoses + + | Diagnosis | + + | Preoperative clearance - Primary | + + | Preoperative examination, unspecified | + + | Cervical spondylosis with myelopathy | + + | S/P cervical spinal fusion | + + | Arthrodesis status | + + | Neuropathy | + + | Mononeuritis of unspecified site | + + | Decreased glomerular filtration rate (GFR) | + + | Cervical spinal stenosis | + + | Spinal stenosis in cervical region | + + | H/O Cervical Fusion - C5-6 - 2008 | + + | Arthrodesis status | + + | Anemia, unspecified type | + + | Dyspnea, unspecified type | + + | Fatigue, unspecified type | + + Admitting Diagnoses + + | Diagnosis | + + | Preoperative clearance | + + | Preoperative examination, unspecified | + +"
--- OUTSIDE RECORDS SUMMARY | ~2018-02-07 | XMS | Encounter Summary ---
Demographics + + + | Address | [address] | | | [place] [address] | + + + | Home Phone | | + + + | Preferred Language | Unknown | + + + | Marital Status | | + + + | Advent Affiliation | Unknown | + + + | Race | Unknown | + + + | Ethnic Group | Unknown | + + + Author + + + | Author | [facility] | | | and [place] | + + + | Organization | [facility] | | | and [...] [place] | | | | | [address] | | + + + + + Care Team Providers + +------+ + | Care Superannuation Clerk Name | Role | Phone | + +------+ + | Carlos Javier MD | PCP | | + +------+ + Reason for Visit + + + | Reason | Comments | + + + | Surgery Appointment | | + + + Encounter Details +--------+ + + + + | Date | Type | Department | Care Team | Description | +--------+ + + + + | 12/07/ | Telephone | [facility] [place] | Eagle Pacheco MD | Surgery Appointment | | 2018 | | [address]ERY [address] | [address] [place] | | | | | [address] | [address] [place] | | | | | [place] | [address] | | | | | [address] | | | | | | [phone] | | | +--------+ + + + [...] 2017 | Visit | | [address] [facility] | | | | | | [address] [place] | | | | | | [address] | | | | | | | | +--------+---------+ + + + as of this encounter Visit Diagnoses Not on filein this encounter"
--- OUTSIDE RECORDS SUMMARY | ~2018-02-07 | XMS | Clinical Summary ---
Demographics + + + | Address | [address] | | | [place] [address] | + + + | Home Phone | | + + + | Preferred Language | Unknown | + + + | Marital Status | | + + + | Pentecostalism Affiliation | Unknown | + + + | Race | White | + + + | Ethnic Group | Not or | + + + Author + + + | Author | [facility] | + + + | Organization | [facility] | + + + | Address | Unknown | + + + | Phone | Unavailable | + + + Support + + + + + | Name | Relationship | Address | Phone | + + + + + | ANDRESSA FRANZ | ECON | [address] | | | | | [place] | | | | | [address] | | + + + + + Care Team Providers + +------+ + | Care Barrel Drum Cutter Name | Role | Phone | + +------+ + | Carlos Javier MD | PP | | + +------+ + Source Comments [facility] is fully live on both [facility] and [facility] Allergies No Known Allergies Current Medications + + +-------+---------+------+------+-------+ | Prescription | Sig. | Disp. | Refills | Star | End | Statu | | | | | | t | Date | s | | | | | | Date | | | + + +-------+---------+------+------+-------+ | Pramipexole | 1 tab qd as directed | | | | | Activ | | Dihydrochloride | | | | | | e | | (MIRAPEX) 0.125 mg | | | | | | | | Oral Tablet | | | | | | | + + +-------+---------+------+------+-------+ | Carbidopa-Levodopa | 2 tabs bid | | | | | Activ | | 10-100 mg Oral | | | | | | e | | Tablet | | | | | | | + + +-------+---------+------+------+-------+ | NAPROXEN [place] | prn | | | | | Activ | | | | | | | | e | + + +-------+---------+------+------+-------+ Active Problems + + + | Problem | Noted Date | + + + | Cervical syndrome | 12/23/2006 | + + + | SOB (shortness of breath) | 12/23/2006 | + + + Social History + +-------+ +--------+------+ | Tobacco Use | Types | Packs/Day | Years | Date | | | | | Used | | + +-------+ +--------+------+ | Never Assessed | | | | | + +-------+ +--------+------+ + + + | Sex Assigned at | Date Recorded | | | | + + + | Not on file | | + + + Last Filed Vital Signs + + + + | Vital Sign | Reading | Time Taken | + + + + | Blood Pressure | 147/72 | 12/23/2006 12:51 PM PDT | + + + + | Pulse | 67 | 12/23/2006 12:51 PM PDT | + + + + | Temperature | - | - | + + + + | Respiratory Rate | 16 | 12/23/2006 12:51 PM PDT | + + + + | Oxygen Saturation | - | - | + + + + | Inhaled Oxygen | - | - | | Concentration | | | + + + + | Weight | 76.7 kg (169 lb) | 12/23/2006 12:51 PM PDT | + + + + | Height | 179.1 cm (5' 10.5") | 12/23/2006 12:51 PM PDT | + + + + | Body Mass Index | 23.91 | 12/23/2006 12:51 PM PDT | + + + + Plan of Treatment + + + + + | Health Maintenance | Due Date | Last Done | Comments | + + + + + | Pneumococcal (Adult) | | | | | (1 of 2 - PCV13) | 3 | | | + + + + + | INFLUENZA VACCINE | | | | | (FLU SHOT) | 8 | | | + + + + + Results Not on filefrom Last 3 Months Insurance + +--------+ +------+ + + | Payer | Benefi | Subscriber | Type | Phone | Address | | | t Plan | ID | | | | | | / | | | | | | | Group | | | | | + +--------+ +------+ + + | [employer] | [employer] | xxxxxxxxxxx | PPO | +- | [address] [address] [place] | | [place]ELD | E BCBS | xxx | | [address] | [place], [place] | | | | | | | [address] | + +--------+ +------+ + + | [employer] | [employer]ENC | xxxxxxxxxxx | PPO | +- | [address] [address] [place] | | [place]ELD | E BCBS | x | | [address] | [place], [place] | | | | | | | [address] | + +--------+ +------+ + + + +--------+ +--------+ + + | Guarantor Name | Accoun | Relation to | Date | Phone | Billing Address | | | t Type | Patient | of | | | | | | | | | | + +--------+ +--------+ + + | MORGAN FRANZ | Person | Self | [birth year] | 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
--- OUTSIDE RECORDS SUMMARY | ~2018-02-07 | XMS | Clinical Summary ---
Demographics + + + | Address | [address] | | | [place] [address] | + + + | Home Phone | | + + + | Preferred Language | Unknown | + + + | Marital Status | | + + + | Sabianism Affiliation | Unknown | + + + | Race | White | + + + | Ethnic Group | Not or | + + + Author + + + | Author | [facility] | + + + | Organization [...] [place] | | | | | [address] | | + + + + + Care Team Providers + +------+ + | Care Teaching Associate Name | Role | Phone | + +------+ + | Carlos Javier MD | PP | | + +------+ + Source Comments [facility] is fully live on both [facility] and [facility] InPatient.[facility] Allergies No Known Allergies Current Medications + [...] | PPO | +- | [address] [address] [place] | | SHIELD | E BCBS | xxx | | [address] | [place], [place] | | | | | | | [address] | + +--------+ +------+ + + | [employer] | REGENC | [phone] | PPO | +- | [address] [address] [place] | | SHIELD | E [employer]BS | x | | [address] | [place], [place] | | | | | | | [address] | + +--------+ +------+ + + + [...] | | al/Fam | | 1940 | [phone] | [place] [address] | | | [place] | | | [address]: | | | | | | | | | | | | | | [phone] | | | | | | | [address] | | + +--------+ +--------+ + +
--- OUTSIDE RECORDS SUMMARY | ~2018-02-07 | XMS | Encounter Summary ---
Demographics + + + | Address | [address] | | | [place] [address] | + + + | Home Phone | | + + + | Preferred Language | Unknown | + + + | Marital Status | | + + + | Faith Affiliation | Unknown | + + + | Race | Unknown | + + + | Ethnic Group | Unknown | + + + Author + + + | Author | [facility] | | | and [place] | + + + | Organization | [facility] | | | and [place] [...] [place] | | | | | [address] | | + + + + + Care Team Providers + +------+ + | Care Janitorial Tech Name | Role | Phone | + +------+ + | Carlos Javier MD | PCP | | + +------+ + Encounter Details +--------+ + + + + | Date | Type | Department | Care Team | Description | +--------+ + + + + | 11/12/ | Episode | [facility] | [place], | | | 2018 | Changes | NEUROSURGERY [address] | Cert [place] | | | | | [facility] [address] | | | | | | [place] | | | | | | [address] | | | | | | [phone] | | | +--------+ + + + [...] 2018 | Visit | | [address] [facility] | | | | | | [address] [place] | | | | | | [address] | | | | | | | | +--------+---------+ + + + as of this encounter Visit Diagnoses Not on filein this encounter"
--- OUTSIDE RECORDS SUMMARY | ~2018-02-07 | XMS | Encounter Summary ---
Demographics + + + | Address | [address] | | | [place] [address] | + + + | Home Phone | | + + + | Preferred Language | Unknown | + + + | Marital Status | | + + + | Jew Affiliation | Unknown | + + + | Race | Unknown | + + + | Ethnic Group | Unknown | + + + Author + + + | Author | [facility] | | | and [place] | + + + | Organization | [facility] | | | and [place] | [...] [place] | | | | | [address] | | + + + + + Care Team Providers + +------+ + | Care Diet Assistant Name | Role | Phone | + +------+ + | Kelly Sosa MD | PCP | | + +------+ + Encounter Details +--------+ + + + + | Date | Type | Department | Care Team | Description | +--------+ + + + + | 08/10/ | Orders Only | [facility] | Eagle Pacheco MD | Status post cervical | | 2018 | | NEUROSURGERY [address] | [address] [place] | spinal fusion | | | | [address] | [address] [place] | (Primary Dx) | | | | [place] | [address] | | | | | [address] | | | | | | [phone] | | | +--------+ + + + [...] 2018 | Visit | | [address] [facility] | | | | | | [address] [place] | | | | | | [address] | | | | | | | | +--------+---------+ + + + as of this encounter Visit Diagnoses + + | Diagnosis | + + | Status post cervical spinal fusion - Primary | + + | Arthrodesis status | + +"
--- OUTSIDE RECORDS SUMMARY | ~2018-02-07 | XMS | Clinical Summary ---
Demographics + + + | Address | [address] | | | [place] [address] | + + + | Home Phone | | + + + | Preferred Language | Unknown | + + + | Marital Status | | + + + | Spiritism Affiliation | Unknown | + + + | Race | Unknown | + + + | Ethnic Group | Unknown | + + + Author + + + | Author | [facility] | | | and eKeana | + + + | Organization | [facility] | | | and [...] [place] | | | | | [address] | | + + + + + Care Team Providers + +------+ + | Care Pattern Worker Name | Role | Phone | + +------+ + | Kelly Sosa MD | PP | | + +------+ + Allergies + + + + + + | Active Allergy | Reactions | Severity | Noted | Comments | | | | | Date | | + + + + + + | Baclofen | Other (See Comments) | Low | 05/04/20 | Leg Cramps | | | | | 17 | | + + + + + + Current Medications + + +---------+---------+------+------+-------+ | Prescription | Sig. | Disp. | Refills | Star | End | Statu | | | | | | t | Date | s | | | | | | Date | | | + + +---------+---------+------+------+-------+ | carbidopa-levodopa | Take 2 tablets by | | 1 | 01/23 | | Activ | | (SINEMET) 10-100 mg | mouth nightly. | | | 8/20 | | e | | per tablet | | | | 17 | | | + + +---------+---------+------+------+-------+ | pramipexole | Take 0.5 mg by mouth | | | | | Activ | | (MIRAPEX) 0.25 mg | nightly. Take 1 | | | | | e | | tablet | tablet a noon and | | | | | | | | two tablets at | | | | | | | | bedtime. | | | | | | + + +---------+---------+------+------+-------+ | tamsulosin | Take 1 capsule by | 30 | 1 | 04/1 | | Activ | | (FLOMAX) 0.4 mg CAPS | mouth daily (after | capsule | | 320 | | e | | | breakfast). | | | 18 | | | + + +---------+---------+------+------+-------+ | ferrous gluconate | Take 1 tablet by | | 0 | 06/1 | | Activ | | (FERGON) 324 mg | mouth 3 times daily. | | | 1/20 | | e | | tablet | | | | 18 | | | + + +---------+---------+------+------+-------+ | famotidine | take 1 tablet by | | 1 | 07/0 | | Activ | | (PEPCID) 20 mg | mouth every 12 hours | | | 6/20 | | e | | tablet | | | | 18 | | | + + +---------+---------+------+------+-------+ | lisinopril | take 1 tablet by | | 0 | 07/0 | | Activ | | (PRINIVIL, ZESTRIL) | mouth once daily | | | 9/20 | | e | | 10 mg tablet | | | | 18 | | | + + +---------+---------+------+------+-------+ | predniSONE | take 3 tablets by | | 0 | 07/0 | | Activ | | (DELTASONE) 10 mg | mouth once daily for | | | 6/20 | | e | | tablet | 1 week then take 2 | | | 18 | | | | | tablets... (REFER | | | | | | | | TO PRESCRIPTION | | | | | | | | NOTES). | | | | | | + + +---------+---------+------+------+-------+ | cyclobenzaprine | Take 0.5-1 tablets | 90 | 3 | 07/1 | | Activ | | (FLEXERIL) 10 mg | by mouth 3 times | tablet | | 9/20 | | e | | tablet | daily as needed for | | | 18 | | | | | Muscle spasms. | | | | | | + + +---------+---------+------+------+-------+ | ELIQUIS 5 MG | | | | 08/0 | | Activ | | tablet | | | | 7/20 | | e | | | | | | 18 | | | + + +---------+---------+------+------+-------+ Active Problems + + + | Problem | Noted Date | + + + | Restless leg syndrome | 09/15/2017 | + + + | Neuropathy | 09/15/2017 | + + + | H/O Kidney stones | 09/15/2017 | + + + + + | Overview: 2017 | + + + + + | Decreased glomerular filtration rate (GFR) | 09/15/2017 | + + + + + | Overview: GFR 52 on 09/03/2017 | + + + + + | Anemia | 09/15/2017 | + + + | Cervical spinal stenosis | 07/01/2017 | + + + | Cervical spondylosis with myelopathy | 05/10/2017 | + + + | H/O Cervical Fusion - C5-6 - 2008 | 05/10/2017 | + + + | Spinal stenosis of lumbar region without neurogenic claudication | 05/10/2017 | + + + | Facet arthropathy, lumbar (HCC) | 05/10/2017 | + + + + + | Overview: Last Assessment & Plan: | | Please see discussion under lumbar radicular pain | + + + + + | Foraminal stenosis of lumbar region | 05/10/2017 | + + + | Lumbar radiculitis | 05/10/2017 | + + + + + | Overview: Last Assessment & Plan: The patient has significant | | axial back pain. This patient has MRI documented multilevel | | lumbar degenerative disk disease with multiple small disk | | protrusions that combined with significant facet arthropathy to | | cause multilevel neural foraminal and lateral recess narrowing as | | well as moderate central stenosis at the L3-4 level. He was | | having intermittent lower extremity radicular pain in the | | primarily right L4 and bilateral L5-S1 distributions. He | | underwent a caudal with catheter lumbar epidural steroid | | injection targeting bilateral L4, L5, and S1 nerve roots on August | | 2014. He reports that this procedure did provide significant | | relief of his radicular symptoms. He now mainly complains of | | axial mechanical pain with some pain radiating to his posterior | | thighs but does not go beyond his knees. He has not tried | | physical therapy. We will have him try core strengthening | | physical therapy and if no further improvement then we will | | consider diagnostic median branch blocks and if efficacious | | radiofrequency neurotomies. | + + + + + | S/P lumbar laminectomy | 05/10/2017 | + + + | Lumbar degenerative disc disease | 08/30/2014 | + + + + + | Overview: Last Assessment & Plan: | | Please see discussion under lumbar radicular pain | + + + + + | Lumbar herniated disc | 08/30/2014 | + + + + + | Overview: Last Assessment & Plan: | | Please see discussion under lumbar radicular pain | + + + + + | Lumbar spinal stenosis | 08/30/2014 | + + + + + | Overview: Last Assessment & Plan: | | Please see discussion under lumbar radicular pain | + + + + + | Spondylolisthesis of lumbar region | 08/30/2014 | + + + + + | Overview: Last Assessment & Plan: Please see discussion under | | lumbar radicular painLumbar flexion extension x-rays did not | | show any significant instability. | + + +---------+---+ | Dyspnea | | +---------+---+ | Fatigue | | +---------+---+ Encounters +--------+ + + + + | Date | Type | Specialty | Care Team | Description | +--------+ + + + + | 01/06/ | Office | | Tyesha Jalloh | Status post cervical | | 2018 | Visit | | NARINDER Butcher | spinal fusion | | | | | | (Primary Dx) | +--------+ + + + + | 01/06/ | Hospital | | Ealge Pacheco MD | Cervical spondylosis | | 2017 | Encounter | | | with myelopathy; | | | | | | Neuropathy; H/O | | | | | | Cervical Fusion - | | | | | | C5-6 - 2007; | | | | | | Cervical spinal | | | | | | stenosis | +--------+ + + + + | 01/01/ | Orders Only | | Eagle Pacheco MD | Status post cervical | | 2017 | | | | spinal fusion | | | | | | (Primary Dx) | +--------+ + + + + | 12/23/ | Telephone | | Eagle Pacheco MD | Post-op Question | | 2017 | | | | | +--------+ + + + + | 12/14/ | Telephone | | Eagle Pacheco MD | Post Op (Post-op | | 2017 | | | | Call) | +--------+ + + + + | 12/11/ | Telephone | | Eagle Pacheco MD | Medication Prior | | 2017 | | | | Authorization | | | | | | (Oxycodone ) | +--------+ + + + + | 12/09/ | Hospital | | Eagle Pacheco MD | | | 2018 - | Encounter | | | | | | | | | | | 12/10/ | | | | | | 2018 | | | | | +--------+ + + + + +---+ + | | Discharge | | | Summaries | | | - Shubham, | | | Tyesha | | | Guadalupe | | | CALIXTO-C - | | | 12/10/2017 | | | 0834 PDT | | | Formatting | | | of this | | | note may be | | | different | | | from the | | | original.DI | | | SCHARGE | | | SUMMARYPt. | | | Name/Age/DO | | | B: Morgan | | | Bertin | | | Pugsley | | | 77 y.o. | | | 1940 | | | | | | Medical | | | Record | | | Number: | | | [id number] | | | Date of | | | Admission: | | | 12/09/2017 | | | Date | | | of | | | Discharge: | | | | | | 12/10/2017Ad | | | mitting | | | Physician: | | | Eagle Mahajan | | | MD Junior | | | PCP: | | | Kelly L. | | | LibbyDischa | | | rging | | | Physician: | | | Jemima Butcher | | | Shubham | | | PA-C | | | Primary | | | Discharge | | | Dx: | | | <principal | | | problem not | | | | | | specified>S | | | econdary | | | Discharge | | | Dx: | | | Patient | | | Active | | | Problem | | | List | | | Diagnosis | | | | | | Cervical | | | spondylosis | | | with | | | myelopathy | | | | | | H/O | | | Cervical | | | Fusion - | | | C5-6 - 2008 | | | | | | Spinal | | | stenosis of | | | lumbar | | | region | | | without | | | neurogenic | | | claudicatio | | | n | | | Lumbar | | | facet | | | arthropathy | | | | | | Foraminal | | | stenosis | | | of lumbar | | | region | | | Lumbar | | | radiculopat | | | hy | | | S/P | | | lumbar | | | laminectomy | | | | | | Cervical | | | spinal | | | stenosis | | | Restless | | | leg | | | syndrome | | | | | | Neuropathy | | | | | | H/O | | | Kidney | | | stones | | | Decreased | | | glomerular | | | filtration | | | rate (GFR) | | | | | | Anemia | | | Dyspnea | | | | | | Fatigue | | | Reason for | | | Admission | | | (Brief): | | | The patient | | | is a 77 | | | y.o. male | | | that had | | | seen us | | | last | | | April f | | | or back | | | pain. The | | | patient | | | was found | | | to have | | | symptoms | | | consistent | | | with | | | cervical | | | disease and | | | was sent | | | for a | | | cervical | | | MRI. Have | | | cervical | | | myelopathy | | | and survey | | | her | | | cervical | | | spinal | | | stenosis. | | | He had | | | previous | | | cervical | | | fusion at | | | C5-6. | | | Since we | | | saw him | | | last the | | | patient had | | | issues | | | with kidney | | | stones and | | | has been | | | working | | | with | | | urology. | | | He has | | | had 2 | | | surgeries | | | and is now | | | cleared | | | from | | | urology to | | | move | | | forward | | | with | | | surgery. | | | He | | | continues | | | to have | | | primarily | | | low back | | | pain. He | | | also | | | notices | | | neurogenic | | | claudicatio | | | n balance | | | disturbance | | | poor | | | coordinatio | | | n of his | | | hands and | | | handwriting | | | changes. | | | He presents | | | today for | | | [email or web address] | | | He has | | | been having | | | leg | | | symptoms | | | and that is | | | what | | | initially | | | brought him | | | in here. | | | His legs | | | get weak, | | | feels like | | | he will | | | lose his | | | balance, | | | has some | | | gait | | | instability | | | and uses a | | | hand rail | | | when he can | | | to help | | | keep him up | | | right. No | | | pain in | | | his hands | | | and arms | | | although | | | he does | | | have | | | numbness | | | and | | | coordinatio | | | n problems | | | of the | | | hands | | | however. | | | His hand | | | writing is | | | going down | | | kvng and is | | | pretty | | | shaky these | | | days. Had | | | a previous | | | neck | | | surgery | | | with | | | . | | | Then | | | Gehlarnol did | | | a | | | procedure | | | in his back | | | about a | | | month after | | | | | | did this. | | | Hospital | | | Course, | | | including | | | Complicatio | | | ns: The | | | patient was | | | admitted | | | for planned | | | surgery. | | | He had a | | | cervical | | | fusion | | | completed | | | without | | | complicatio | | | n. After | | | surgery, | | | there were | | | no events. | | | He | | | mobilized | | | well. The | | | patient was | | | discharged | | | home and | | | will | | | follow-up | | | as an | | | outpatient. | | | There were | | | no cardiac | | | issues, | | | pulmonary | | | issues, | | | evidence of | | | DVT or | | | infection. | | | | | | Medications | | | Reconciled | | | upon | | | Discharge | | | are: | | | Discharge | | | Medications | | | New | | | Medications | | | Details | | | | | | cyclobenzap | | | rine 10 mg | | | tablet Take | | | 0.5-1 | | | tablets by | | | mouth 3 | | | times daily | | | as needed | | | for Muscle | | | spasms.aka: | | | FLEXERIL | | | lactulose | | | 10 g/15 mL | | | solution | | | Take 30 mLs | | | by mouth 2 | | | times | | | daily. For | | | constipatio | | | n oxyCODONE | | | 10 MG Tabs | | | Take 1-2 | | | tablets by | | | mouth every | | | 4 hours as | | | needed for | | | Pain. | | | Unchanged | | | Medications | | | Details | | | | | | carbidopa-l | | | evodopa | | | 10-100 mg | | | per tablet | | | Take 2 | | | tablets by | | | mouth | | | nightly.aka | | | : SINEMET | | | CENTRUM | | | SILVER | | | ULTRA MENS | | | Tabs Take 1 | | | tablet by | | | mouth. | | | DELZICOL | | | [address] | | | capsuleGene | | | corky drug: | | | mesalamine | | | take 1 | | | tablet by | | | mouth three | | | times a | | | day for | | | CROHNS | | | famotidine | | | 20 mg | | | tablet take | | | 1 tablet | | | by mouth | | | every 12 | | | hoursaka: | | | PEPCID | | | ferrous | | | gluconate | | | 324 mg | | | tablet Take | | | 1 tablet | | | by mouth 3 | | | times | | | daily.aka: | | | FERGON | | | lisinopril | | | 10 mg | | | tablet take | | | 1 tablet | | | by mouth | | | once | | | dailyaka: | | | PRINIVIL, | | | ZESTRIL | | | MIRAPEX | | | 0.25 mg | | | tabletGener | | | ic drug: | | | pramipexole | | | Take 0.5 | | | mg by mouth | | | nightly. | | | Take 1 | | | tablet a | | | noon and | | | two tablets | | | at | | | bedtime. | | | predniSONE | | | 10 mg | | | tablet take | | | 3 tablets | | | by mouth | | | once daily | | | for 1 week | | | then take 2 | | | tablets... | | | (REFER TO | | | | | | PRESCRIPTIO | | | N | | | NOTES).aka: | | | DELTASONE | | | tamsulosin | | | 0.4 mg | | | Caps Take 1 | | | capsule by | | | mouth | | | daily | | | (after | | | breakfast). | | | aka: | | | FLOMAX | | | Discontinue | | | d | | | Medications | | | | | | HYDROcodone | | | -acetaminop | | | hen 10-325 | | | mg per | | | tabletaka: | | | NORCO | | | Condition | | | on | | | Discharge: | | | StableFollo | | | w-Up Plans: | | | | | | Follow-up: | | | 3-4 weeks | | | for routine | | | follow-up. | | | | | | Follow-up | | | with | | | primary | | | care | | | physician | | | as needed. | | | Diet: | | | Resume home | | | diet | | | Activity: | | | Continue to | | | follow | | | guidelines | | | and | | | precautions | | | as | | | previously | | | discussed. | | | Bracing: | | | C | | | BraceElectr | | | onically | | | signed by: | | | Jemima | | | Guadalupe | | | Shubham, | | | 12/10/2017 | | | 8:[address] [facility] | [facility] | +---+ + +--------+ +---+ + + | 12/09/ | Hospital | | aEgle Pacheco MD | | | 2017 | Encounter | | | | +--------+ +---+ + + | 12/09/ | Procedure | | | | | 2017 | Pass | | | | +--------+ +---+ + + | 12/09/ | Surgery | | Eagle Pacheco MD | C3-4, C4-5, C6-7 | | 2017 | | | | Anterior Cervical | | | | | | Discectomy Fusion w/ | | | | | | C5-6 Hardware | | | | | | Revision | +--------+ +---+ + + | 12/08/ | Anesthesia | | Marli Ray | | | 2018 | Event | | Michi GARCIA MD | | +--------+ +---+ + + | 12/07/ | Orders Only | | Eagle Pacheco MD | Cervical spondylosis | | 2017 | | | | with myelopathy | | | | | | (Primary Dx); | | | | | | Neuropathy; H/O | | | | | | Cervical Fusion - | | | | | | C5-6 - 2007; | | | | | | Cervical spinal | | | | | | stenosis | +--------+ +---+ + + | 12/07/ | Telephone | | Eagle Pacheco MD | Surgery Appointment | | 2017 | | | | | +--------+ +---+ + + | 12/01/ | Hospital | | Eagle Pacheco MD | Neuropathy; Cervical | | 2017 | Encounter | | Morgan Garner MD | spondylosis with | | | | | | myelopathy; | | | | | | Decreased glomerular | | | | | | filtration rate | | | | | | (GFR); Cervical | | | | | | spinal stenosis; H/O | | | | | | Cervical Fusion - | | | | | | C5-6 - 2007; Anemia, | | | | | | unspecified type | +--------+ +---+ + + | 12/01/ | Preadmit | | Eagle Pacheco MD | Preoperative | | 2017 | Visit | | | clearance (Primary | | | | | | Dx); Cervical | | | | | | spondylosis with | | | | | | myelopathy; S/P | | | | | | cervical spinal | | | | | | fusion; Neuropathy; | | | | | | Decreased glomerular | | | | | | filtration rate | | | | | | (GFR); Cervical | | | | | | spinal stenosis; H/O | | | | | | Cervical Fusion - | | | | | | C5-6 - 2007; Anemia, | | | | | | unspecified type; | | | | | | Dyspnea, unspecified | | | | | | type; Fatigue, | | | | | | unspecified type | +--------+ +---+ + + | 12/01/ | Office | | Eagle Pacheco MD | Cervical spondylosis | | 2017 | Visit | | | with myelopathy | | | | | | (Primary Dx); | | | | | | Cervical spinal | | | | | | stenosis; H/O | | | | | | Cervical Fusion - | | | | | | C5-6 2007; | | | | | | Neuropathy | +--------+ +---+ + + | 11/24/ | Telephone | | Eagle Pacheco MD | Appointment Question | | 2017 | | | | | +--------+ +---+ + + | 11/12/ | Episode | | Avelina Matthew, | | | 2017 | Changes | | Codie GANDHI | | +--------+ +---+ + + | 11/12/ | Telephone | | Eagle Pacheco MD | Pre-op Exam | | 2017 | | | | | +--------+ +---+ + + | 11/12/ | Orders Only | | Eagle Pacheco MD | | | 2017 | | | | | +--------+ +---+ + + | 11/12/ | Episode | | Anna Marie Fernandez | | | 2017 | Changes | | Or Scrub Tech | | +--------+ +---+ + + from Last 3 Months Family History + + +------+ + | Medical History | Relation | Name | Comments | + + +------+ + | Other (see comment) | Brother | | Lung Problems | + + +------+ + | Tobacco Use | Brother | | | + + +------+ + | Celiac disease | Daughter | | | + + +------+ + | COPD | Father | | | + + +------+ + | Heart disease | Father | | | + + +------+ + | Stroke | Maternal | | | | | Grandfath | | | | | er | | | + + +------+ + | No Known Problems | Maternal | | | | | Grandmoth | | | | | er | | | + + +------+ + | Cancer | Maternal | | | | | Uncle | | | + + +------+ + | No Known Problems | Mother | | | + + +------+ + | Other (see comment) | Paternal | | Lung problems | | | Aunt | | | + + +------+ + | Stroke | Paternal | | | | | Grandfath | | | | | er | | | + + +------+ + | No Known Problems | Paternal | | | | | Grandmoth | | | | | er | | | + + +------+ + | No Known Problems | Sister | | | + + +------+ + + +------+ + + | Relation | Name | Status | Comments | + +------+ + + | Brother | | | | + +------+ + + | Daughter | | Alive | | + +------+ + + | Father | | | | | | | (Age | | | | | 70) | | + +------+ + + | Maternal Grandfather | | | Stroke | | | | (Age | | | | | 89) | | + +------+ + + | Maternal Grandmother | | | | | | | (Age | | | | | 98) | | + +------+ + + | Maternal Uncle | | | Cancer | | | | (Age | | | | | 71) | | + +------+ + + | Mother | | | | + +------+ + + | Paternal Aunt | | | Lung Problems | | | | (Age | | | | | 68) | | + +------+ + + | Paternal Grandfather | | | Stroke | | | | (Age | | | | | 65) | | + +------+ + + | Paternal Grandmother | | | | | | | (Age | | | | | 89) | | + +------+ + + | Sister | | | | + +------+ + + Social History + +-------+ +--------+ [...] + + + | Blood Pressure | 109/56 | 01/06/2018 1124 PDT | + + + + | Pulse | 89 | 01/06/20181123 PDT | + + + + | [...] + + + + | Weight | 71.8 kg (158 lb 4.6 | 01/06/20181123 PDT | | | oz) | | + + + + | Height | 180.3 cm (5' 11") | 01/06/2018 1124 PDT | + + + + | Body Mass Index | 22.08 | 01/06/2018 1124 PDT | + + + + Plan of Treatment +--------+---------+ + + + | Date | Type | Specialty | Care Team | Description | +--------+---------+ + + + | 03/02/ | Office | | Eagle Pacheco MD | | | 2018 | Visit | | [address] [facility] | | | | | | [address] | | | | | | [phone] | | | | | | | | +--------+---------+ + + + + + + + + | Health [...] | | + + + + + Implants + +--------+--------+ +--------+--------+--------+ | Implanted | Type | Area | Manufacture | Device | Expira | Model | | | | | r | | tion | / | | | | | | Identi | Date | Serial | | | | | | fier | | / Lot | + +--------+--------+ +--------+--------+--------+ | Cage Lynn Ptc [id number] - | Generi | N/A: | [employer] - | | 11/17/ | [id number] | | Sn/AImplanted: Qty: 2 on | c | Spine | MEDT | | 2025 | /N/A | | 12/09/2017 by Eagle Pacheco, | | Cervic | | | | /[id number] | | MD | | al | | | | | + +--------+--------+ +--------+--------+--------+ | Cage Lynn Ptc [id number] - | Generi | N/A: | [employer] - | | 10/20/ | [id number] | | Sn/AImplanted: Qty: 1 on | c | Spine | MEDT | | 2025 | 4 /N/A | | 12/09/2017 by Eagle Pacheco, | | Cervic | | | | /[id number] | | MD | | al | | | | | + +--------+--------+ +--------+--------+--------+ | Imp Spn Plt Ti Zevo 75mm 4lvl | Generi | N/A: | [employer] - | | | [id number] | | - Sn/AImplanted: Qty: 1 on | c | Spine | MEDT | | | /N/A | | 12/09/2017 by Eagle Pacheco, | | Radhika | | | | /N/A | | MD | | al | | | | | + +--------+--------+ +--------+--------+--------+ | Vicenta Clark Pls 1cc Aseptic | Graft | N/A: | [employer] - | | 04/02/ | [id number] | | - [id number]: Qty: | | Spine | MEDT | | 2019 | | | 1 on 12/09/2017 by Junior, | Yeyo Garrido | | | | /[id number] | | Eagle Mahajan MD | | al | | | | 0-079 | | | | | | | | /N/A | + +--------+--------+ +--------+--------+--------+ | Vicenta Clark Pls 1cc Aseptic | Graft | N/A: | [employer] - | | 06/09/ | [id number] | | - [id number]: Qty: | | Spine | MEDT | | 2020 | | | 1 on 12/09/2017 by Junior, | | Cervic | | | | /[id number] | | Eagle Mahajan MD | | al | | | | 0-070 | | | | | | | | /N/A | + +--------+--------+ +--------+--------+--------+ | Screw D-Thrd Slf-Drl 4.0x15mm | Screw | N/A: | [employer] - | | | [id number] | | - Sn/AImplanted: Qty: 1 on | | Spine | MEDT | | | 5 /N/A | | 12/09/2017 by Eagle Pacheco, | | Cervic | | | | /N/A | | MD | | al | | | | | + +--------+--------+ +--------+--------+--------+ | Screw D-Thrd Slf-Drl 4.0x17mm | Screw | N/A: | [employer] - | | | [id number] | | - Sn/AImplanted: Qty: 5 on | | Spine | MEDT | | | 7 /N/A | | 12/09/2017 by Eagle Pacheco, | | Cervic | | | | /N/A | | MD | | al | | | | | + +--------+--------+ +--------+--------+--------+ | Screw D-Thrd Slf-Drl 3.5x17mm | Screw | N/A: | [employer] - | | | [id number] | | - Sn/AImplanted: Qty: 4 on | | Spine | MEDT | | | 7 /N/A | | 12/09/2017 by Eagle Pacheco, | | Radhika | | | | /N/A | | | | al | | | | | + +--------+--------+ +--------+--------+--------+ | Stent Uret W/Pstnr Frm 6 | Stent | Right: | GENE MILLS | | 06/30/ | [id number] | | - [id number]: | | | INCORPORATE | | 2020 | / | | Qty: 1 on 09/02/2017 by | | Ureter | D | | | /[id number] | | French Mayberry MD | | | | | | 85 | + +--------+--------+ +--------+--------+--------+ | Stent Uret W/Pstnr Frm 6 | Stent | Left: | [employer] [place]S | | 06/30/ | [id number] | | - [id number]: | | Ureter | INCORPORATE | | 202 | / | | Qty: 1 on 09/02/2017 by | | | D | | | /[id number] | | French Mayberry MD | | | | | | 85 | + +--------+--------+ +--------+--------+--------+ | Stent Uret W/Pstnr Frm 6 | Stent | | [employer] [place]S | | 06/25/ | [id number] | | - [id number]: | | | INCORPORATE | | 2020 | / | | Qty: 1 on 09/15/2017 by | | | D | | | /[id number] | | French Mayberry MD | | | | | | 09 | + +--------+--------+ +--------+--------+--------+ Procedures + +--------+ + + + | Procedure Name | Priori | Date/Time | Associated Diagnosis | Comments | | | ty | | | | + +--------+ + + + | XR CERVICAL SPINE 2 | Routin | 01/06/2018 | Cervical | Results for this | | OR 3 VIEWS | e | 1001 PDT | spondylosis with | procedure are in the | | | | | myelopathy | results section. | | | | | Neuropathy H/O | | | | | | Cervical Fusion - | | | | | | C5-6 - 2007 | | | | | | Cervical spinal | | | | | | stenosis | | + +--------+ + + + | XR CERVICAL SPINE 2 | STAT | 12/09/2017 | | Results for this | | OR 3 VIEWS | | 1956 PDT | | procedure are in the [...] | + +--------+ + + + | ANE AIRWAY NOTE | Routin | 12/09/2017 | | Results for this | | | e | 1624 PDT | | procedure are in the [...] | | Top | +---+--------+ + +--------+ + + + | POC GLUCOSE | Routin | 12/09/2017 | | Results for this | | | e | 1329 PDT | | procedure are in the | | | | | | results section. | + +--------+ + + + | XR CHEST PA AND | Routin | 12/01/2017 | Neuropathy | Results for this | | LATERAL | e | 1538 PDT | Cervical spondylosis | procedure are [...] | | + +--------+ + + + from Last 3 Months Results XR Cervical Spine 2 or 3 Views (01/06/2018 1001)Only the most recent of 2 results within e time period is included. + + + | Narrative | Performed At | + + + | CLINICAL INFORMATION: Post Op AP/Lat. COMPARISON: 12/09/2017 | [facility] | | FINDINGS: AP and lateral views of the cervical spine. Anterior | | | screw plate fusion changes at C3-C7 with stable appearance of the | | | interbody graft markers. Stable osseous fusion at C5-C6.. No | | | evidence of hardware complication. Stable cervical spine | | | alignment. Stable height of the vertebral bodies. Prevertebral | | | soft tissues have a normal appearance. IMPRESSION - No | | | radiographic evidence of interval complication. Dictated and | | | Signed by: Dariusz Nelson MD Electronically signed: 01/06/2018 | | | 11:09 AM | | + + + + + | Procedure Note | + + | Claus Keys Results In - 01/06/2018 1112 PDT CLINICAL INFORMATION: Post Op AP/Lat. | | | | COMPARISON: 12/09/2017 | | | | FINDINGS: | | AP and lateral views of the cervical spine. | | | | Anterior screw plate fusion changes at C3-C7 with stable appearance of the | | interbody graft markers. Stable osseous fusion at C5-C6.. No evidence of | | hardware complication. | | | | Stable cervical spine alignment. Stable height of the vertebral bodies. | | | | Prevertebral soft tissues have a normal appearance. | | | | | | IMPRESSION - No radiographic evidence of interval complication. | | | | Dictated and Signed by: Dariusz Nelson MD | | Electronically signed: 01/06/2018 11:09 AM | + + + +---------+ + + | Performing | Address | City/State/Zipcode | Phone Number | | Organization | | | | + +---------+ + + | [facility] | | | | + +---------+ + + [place] Ivelisse Ceballos No Radha (12/09/2017 1056) + + + | Narrative | Performed [...] | | | + +---------+ + + Anesthesia Airway Note (12/09/2017 1624) + + [...] Marli Peralta | | JOSE Ray MD ESi date/time: 12/09/2017 16:24 | |Attempts: 1 | [...] 12/09/2017 16:24 | | | + + POC Glucose (12/09/2017 1329) + +---------+ + + | Component | Value | Ref Range | Performed At | + +---------+ + + | Glucose, POC | 114 (H) | 70 - 109 mg/dL | [facility] | | | | | [facility] | | | | | CENTER - | | | | | LABORATORY | + +---------+ + + + + | Specimen | + + | Blood | + + + + + + + | Performing | Address | City/State/Zipcode | Phone Number | | Organization | | | | + + + + + | [facility] | [address] | [place], [place] | [phone] | | [facility] | | [address] | | | - LABORATORY | | | | + + + + + | [facility] | [address] | [place], [place] | | | [facility] | | [address] | | | - LABORATORY | | | | + + + + + XR Chest PA and Lateral (12/01/2017 1538) + + + | Narrative | Performed At | + + + | CLINICAL INFORMATION: Pre-op. COMPARISON: None available. | [facility] | | FINDINGS: Frontal and lateral views of the chest. Lungs: Mild | | | hyperexpansion of the lungs with flattening of the hemidiaphragms. | | | No focal airspace disease, pleural effusion, or pneumothorax. | | | Heart/mediastinum: Cardiac silhouette is of normal size. Central | | | pulmonary vasculature has a normal appearance. Bones: No acute | | | osseous abnormality appreciated. IMPRESSION - No acute disease. | | | Probable emphysematous changes. Dictated and Signed by: | | | Dariusz Nelson MD Electronically signed: 12/01/2017 7:19 PM | | + + + + + | Procedure Note | + + | Massimo, Rad Results In - 12/01/2017 1922 PDT CLINICAL INFORMATION: Pre-op. | | | | COMPARISON: None available. | | | | FINDINGS: | | Frontal and lateral views of the chest. | | | | Lungs: Mild hyperexpansion of the lungs with flattening of the hemidiaphragms. | | No focal airspace disease, pleural effusion, or pneumothorax. | | | | Heart/mediastinum: Cardiac silhouette is of normal size. Central pulmonary | | vasculature has a normal appearance. | | | | Bones: No acute osseous abnormality appreciated. | | | | IMPRESSION - | | No acute disease. | | | | Probable emphysematous changes. | | | | Dictated and Signed by: Dariusz Nelson MD | | Electronically signed: 12/01/2017 7:19 PM | + + + +---------+ + + | Performing | Address | City/State/Zipcode | Phone Number | | Organization | | | | + +---------+ + + | [facility] | | | | + +---------+ + + ECG 12 lead (12/01/2017 1513) + + [...] | | | | MORGAN GARNER MD ([id number]) | | | | | on 12/02/2017 [...] | Negative for MRSA by | | [facility] | | | chromogenic agar method | | [facility] | | | | | CENTER - | | | | | LABORATORY | + + + + + | Culture | 3+ Coagulase positive | | [facility] | | | Staphylococcus | | [facility] | | | | | CENTER [...] + | [facility] | [address] | [place] | [phone] | | [facility] | | [address] | | | - LABORATORY | | | | + + + + + | [facility] | [address] | [place] | | | [facility] | | [address] | | | - LABORATORY | | | | + + + + + CBC with Differential (12/01/2017 1455) + + + + + | Component | Value | Ref Range | Performed At | + + + + + | WBC | 6.0 | 4.0 - 11.0 K/uL | [facility] | | | | | [facility] | | | | | CENTER - | | | | | LABORATORY | + + + + + | RBC | 4.51 | 4.30 - 5.70 M/uL | [facility] | | | | | [facility] | | | | | CENTER [...] 0.00 | 0.00 - 0.10 K/uL | [facility] | | | | | [facility] | | | | | CENTER - | | | | | LABORATORY | + + + + + + + | Specimen | + + | Blood | + + + + + + + | Performing | Address | City/State/Zipcode | Phone Number | | Organization | | | | + + + + + | [facility] | [address] | [place] | [phone] | | [facility] | | [address] | | | - LABORATORY | | | | + + + + + | [facility] | [address] | [place] | | | [facility] | | [address] | | | - LABORATORY | | | | + + + + + Basic Metabolic Panel (12/01/2017 1457) + + + + + | Component | Value | Ref Range | Performed At | + + + + + | NA | 138 | 136 - 149 mmol/L | [facility] | | | | | [facility] | | | | | CENTER - | | | | | LABORATORY | + + + + + | K | 3.2 (L) | 3.5 - 5.1 mmol/L | [facility] | | | | | [facility] | | | | | CENTER - | | | | | LABORATORY | + + + + + | CL | 98 | 98 - 109 mmol/L | [facility] | | | | | [facility] | | | | | CENTER [...] [facility] | | | | | [facility] | | | | | CENTER - | | | | | LABORATORY | + + + + + | BUN | 11 | 7 - 18 mg/dL | [facility]. | | | | | [facility] | | | | | CENTER - | | | | | LABORATORY | + + + + + | Creatinine, | 0.98 | 0.60 - 1.30 mg/dL | [facility]. | | Serum/Plasma | | | [facility] | | | | | CENTER - | | | | | LABORATORY | + + + + + | eGFR if not | >60Comment: GLOMERULAR | >=60 mL/min/1.73m2 | [facility]. | | [place] | FILTRATION | | [facility] | | | RATE,ESTIMATED mL/min | | CENTER - | | | /1.23l8Ygpm than 60 | | LABORATORY | | [...] | + + + + + | [facility] | [address] | [place], [place] | [phone] | | [facility] | | [address] | | | - LABORATORY | | | | + + + + + | [facility] | [address] | [place], [place] | | | [facility] | | [address] | | | - LABORATORY | | | | + + + + + from Last 3 Months Insurance + +--------+ +--------+ +---------+ | Payer | Benefi | Subscriber | Type | Phone | Address | | | t Plan | ID | | | | | | / | | | | | | | Group | | | | | + +--------+ +--------+ +---------+ | [employer] | SAIF | [id number] | Indemn | [phone] | | | | WC | | ity | 8525 | | + +--------+ +--------+ +---------+ | MEDICARE | MEDICA | [id number] | Medica | +1- | | | | RE | | re | [phone] | | | | PART A | | | | | | | AND B | | | | | + +--------+ +--------+ +---------+ | [employer] | [employer] | [id number] | PPO | [phone] | | | | PPO | | | [phone] | | + +--------+ +--------+ +---------+ + +--------+ +--------+ + + | Guarantor Name | Accoun | Relation to | Date | Phone | Billing Address | | | t Type | Patient | of | | | | | | | | | | + +--------+ +--------+ + + | MORGAN FRANZ | Person | Self [birth year] Home: | [address] | | | al/Fam | | 1940 | +- | [place] [address] | | | jayla | | | [phone] | | + +--------+ +--------+ + + | [id number] | Worker | Self | [birth year] | Work: | [address] | | [employer] | [employer] | | 1939 | [phone] | [place] [address] | | | | | | [address] Home: | | | | | | | | | | | | | | +- | | | | | | | [address] | | + +--------+ +--------+ + +
--- OUTSIDE RECORDS SUMMARY | ~2018-02-07 | XMS | Encounter Summary ---
Demographics + + + | Address | [address] | | | [place] [address] | + + + | Home Phone | | + + + | Preferred Language | Unknown | + + + | Marital Status | | + + + | Pentecostal Affiliation | Unknown | + + + | Race | Unknown | + + + | Ethnic Group | Unknown | + + + Author + + + | Author | [facility] | | | and [place] | + + + | Organization | [facility] | | | and [place] | + + + | Address | Unknown | + + + | Phone | Unavailable | + + + Support + + + + + | Name | Relationship | Address | Phone | + + + + + | Xochitl Gomez | ECON | [address] | | | | | [place] | | | | | [address] | | + + + + + Care Team Providers + +------+ + | Care Turfgrass Management Professor Name | Role | Phone | + [...] [place] | | | | | [address] [facility] [address] | [address] | | | | | [place], [place] | [address] | | | | | [address] | | | | | | [phone] | | | +--------+ + + + [...] Visit | | [address] [facility] | | | | | | [address] [place] | | | | | | [address] | | | | | | | | +--------+---------+ + + + as of this encounter Visit Diagnoses Not on filein this encounter"
--- OUTSIDE RECORDS SUMMARY | ~2018-02-07 | XMS | Encounter Summary ---
Demographics + + + | Address | [address] | | | [place] [address] | + + + | Home Phone | | + + + | Preferred Language | Unknown | + + + | Marital Status | | + + + | Adventism Affiliation | Unknown | + + + | Race | Unknown | + + + | Ethnic Group | Unknown | + + + Author + + + | Author | [facility] | | | and [place] | + + + | Organization | [facility] [...] [place] | | | | | [address] | | + + + + + Care Team Providers + +------+ + | Care Cpo Name | Role | Phone | + [...] + + | 12/07/ | Telephone | [facility] [place] | Eagle Pacheco MD | Surgery Appointment | | 2018 | | NEUROSURGERY [address] | [address] | | | | | [address] | [address] [place] | | | | | [place] | [address] | | | | | [address] | | | | | | [phone] | | | +--------+ + + + [...] 2017 | Visit | | [address] [facility] | | | | | | [address] [place] | | | | | | [address] | | | | | | | | +--------+---------+ + + + as of this encounter Visit Diagnoses Not on filein this encounter"
--- OUTSIDE RECORDS SUMMARY | ~2018-02-07 | XMS | Encounter Summary ---
Demographics + + + | Address | [address] | | | [place] [address] | + + + | Home Phone | | + + + | Preferred Language | Unknown | + + + | Marital Status | | + + + | Anabaptist Affiliation | Unknown | + + + | Race | Unknown | + + + | Ethnic Group | Unknown | + + + Author + + + | Author | [facility] | | | and [place] | + + + | Organization | [facility] | | | [...] [place] | | | | | [address] | | + + + + + Care Team Providers + +------+ + | Care Salon Coordinator Name | Role | Phone | + +------+ + | Kelly Sosa MD | PCP | | + +------+ + Reason for Visit +---------+ + | Reason | Comments | +---------+ + | Post Op | 4w PO | +---------+ + Encounter Details +--------+---------+ + + + | Date | Type | Department | Care Team | Description | +--------+---------+ + + + | 01/06/ | Office | [facility] [place] | Tyesha Jalloh | Status post cervical | | 2018 | Visit | NEUROSURGERY [address] | [address] | spinal fusion | | | | [address] | [place], | (Primary Dx) | | | | [place], [place] | [place] [address] | | | | | [address] | [phone] | | | | | [phone] | | | +--------+---------+ + + + Social History + +-------+ [...] + | Blood Pressure | 109/56 | 01/06/20184 PDT | + + + + | Pulse | 89 | 01/06/20184 PDT | + + + + | Temperature | - | - | + + + + | Respiratory Rate | - | - | + + + + | Oxygen Saturation | - | - | + + + + | Inhaled Oxygen | - | - | | Concentration | | | + + + + | Weight | 71.8 kg (158 lb 4.6 | 01/06/20181123 PDT | | | oz) | | + + + + | Height | 180.3 cm (5' 11") | 01/06/20181123 PDT | + + + + | Body Mass Index | 22.08 | 01/06/20181123 PDT | + + + + in [...] + + + as of this encounter Instructions Patient Instructions - Tyesha Jalloh PA-C - 01/06/2018 1100 PDTYou may now slowly increase your lifting up to 15 pounds as tolerated. You may now reach overhead but it should only be 1-2 pounds. Please refrain from twisting for the next 8 weeks. Lastly, you will see Dr. Pacheco in approximately 2 months where a new x-ray will be taken at that time. In the mean time, you can also begin to wean out of your brace as instructed below. SPINE BRACE WEANING PROTOCOL (5 WEEKS) For the next 2 weeks continue to wear your brace except at night to sleep (B brace) Below are instructions for weaning your brace. You can move through the weeks slower if yo u feel the need to do so, but the overall goal is to get you out of the brace slowly over th e next several weeks. WEEK 1 If you have been using your brace for activities like sleeping, showering, do not use the b race for these activities any longer but continue using it for everything else. WEEK 2 Stop wearing your brace for sitting and short distance walking. You should use the brace f or anything more involved. WEEK 3 Stop using the brace for medium distance walking. You can bend and twist your back but sti ll proceed slowly with these activities. WEEK 4 Stop using the brace for everything but the most difficult tasks. You should now be able to go on long walks and lift more weight as directed. Add more bending and twisting as tolera zia. WEEK 5 Stop using the brace for daily use. I would encourage you to use the brace in the future f or activities that you know might aggravate your back or cause pain. You should still work to strengthen your back and use good technique when fruit picker things and bending. in this encounter Progress Notes Tyesha Jalloh PA-C - 01/06/2018 1100 PDTFormatting of this note may be different f rom the original. Jemima Jalloh PA-C [address] [facility], [address] [place] [address] FAX: NEUROSURGERY FOLLOW-UP CHIEF COMPLAINT: Chief Complaint Patient presents with Post Op 4w PO HISTORY OF PRESENT ILLNESS: The patient is a 77 y.o. male that had a cervical fusion for n marcia pain around 4 weeks ago. He returns and overall is doing good. The patient complains o f improved neck pain with appreciation that he is still healing. The patient has been walk ing as much as directed. He is not still taking pain medications at this point. Swallowing is close to or back to normal. The patient has had no issues with his surgical site. PAST MEDICAL HISTORY: Past Medical History: Diagnosis Date Crohn's disease ([facility]) 1961 DDD (degenerative disc disease), lumbar Dyspnea Facet arthropathy, lumbar ([facility]) Fatigue Impacted cerumen Internal derangement of knee Iron deficiency Lumbago Lumbar herniated disc Lumbar radiculitis Lumbar spinal stenosis Microscopic hematuria Nephrolithiasis Neuropathy Nontropical sprue Restless leg syndrome Spondylolisthesis of lumbar region Tremor Vitamin B12 deficiency Vitamin D deficiency Wears dentures Full upper PAST SURGICAL HISTORY: Past Surgical History: Procedure Laterality Date ANOSCOPY 2004 Hemorrhoidal banding CARPAL TUNNEL RELEASE 2014 CERVICAL FUSION 04/2008 Ray Sanders fusion C5/6, /Juancarlos CERVICAL SPINE SURGERY N/A 12/09/2017 Procedure: C3-4, C4-5, C6-7 Anterior Cervical Discectomy Fusion w/ C5-6 Hardware Revision; Surgeon: Eagle Pacheco MD; Location: [facility] HERNIA REPAIR Right 2012 INTRACAPSULAR CATARACT EXTRACTION Left 05/25/2009 KIDNEY STONE SURGERY 07/2012 LUMBAR DISCECTOMY 05/2008 L4/5 Paramedain and foraminal, /Juancarlos NEPHROSTOMY Left 09/02/2017 Procedure: Left Percutaneous Nephrolithotomy, Placement of stent bilateral ureters; Surge on: French Mayberry MD; Location: [facility] OR SHOULDER SURGERY Left 01/2013 TONSILLECTOMY AND ADENOIDECTOMY URETEROSCOPY Right 09/15/2017 Procedure: Right Ureteroscopy, Laser Lithotripsy & Stent; Surgeon: French Mayberry MD; Location: [facility] OR CURRENT MEDICATIONS: Current Outpatient Prescriptions Medication Sig Dispense Refill carbidopa-levodopa (SINEMET) 10-100 mg per tablet Take 2 tablets by mouth nightly. 1 cyclobenzaprine (FLEXERIL) 10 mg tablet Take 0.5-1 tablets by mouth 3 times daily as ne eded for Muscle spasms. 90 tablet 3 ELIQUIS 5 MG tablet famotidine (PEPCID) 20 mg tablet take 1 tablet by mouth every 12 hours 1 ferrous gluconate (FERGON) 324 mg tablet Take 1 tablet by mouth 3 times daily. 0 lisinopril (PRINIVIL, ZESTRIL) 10 mg tablet take 1 tablet by mouth once daily 0 pramipexole (MIRAPEX) 0.25 mg tablet Take 0.5 mg by mouth nightly. Take 1 tablet a noon and two tablets at bedtime. predniSONE (DELTASONE) 10 mg tablet take 3 tablets by mouth once daily for 1 week then take 2 tablets... (REFER TO PRESCRIPTION NOTES). 0 tamsulosin (FLOMAX) 0.4 mg CAPS Take 1 capsule by mouth daily (after breakfast). 30 cap martin 1 No current facility-administered medications for this visit. REVIEW OF SYSTEMS GENERALLY: No fever, no night sweats, no anemia, no fatigue, +recent profound weight josue ges. EYES: No eye problems, no use of corrective lenses, no eye injury, no double vision, no bl indness. EARS, NOSE, AND THROAT: No changes in taste or smell, no hearing difficulty, no ringing in the ears, no ear drainage, +dizziness, no voice changes, no difficulty swallowing, no signi ficant snoring, no sleep apnea, no sinus problems, no major dental work. NEUROLOGICALLY: Please see the review of systems discussed above in the history of present illness. PSYCHIATRIC: No depression, no sleep disorders, no anxiety, no bipolar disorder, no psycho tic episodes. CARDIOVASCULAR: No heart attacks, no heart murmur, no heart fluttering, no chest pain, no ankle swelling. LUNG DISEASE: No shortness of breath, no cough, no tuberculosis, no bloody cough, no asth ma, no emphysema/COPD. GASTROINTESTINAL: No bowel disease, no nausea or vomiting, no rectal bleeding, no constipa tion, no stool incontinence, no liver disease, no gallbladder disease, no abdominal pain, no ulcers. KIDNEY DISEASE: No urinary frequency, no painful or difficult urination, no incontinence. ENDOCRINE: No diabetes, no thyroid disease, no osteopenia or osteoporosis, no breast drain age. SKIN: No breast lumps, no skin changes, no rashes, no itches. HEMATOLOGIC/LYMPHATIC: No enlarged lymph nodes, no easy or unusual bleeding, no personal h istory of cancer. RHEUMATOLOGIC: No joint arthritis, no rheumatoid arthritis. ALLERGIES: Allergies Allergen Reactions Baclofen Other (See Comments) Leg Cramps SOCIAL HISTORY: The patient reports that he quit smoking about 50 years ago. His smokeless tobacco use inc ludes Chew. He reports that he drinks alcohol. He reports that he does not use drugs. FAMILY HISTORY: Family History Problem Relation Age of Onset No Known Problems Mother COPD Father Heart disease Father Celiac disease Daughter No Known Problems Sister Other (see comment) Brother Lung Problems Tobacco Use Brother No Known Problems Maternal Grandmother Stroke Maternal Grandfather No Known Problems Paternal Grandmother Stroke Paternal Grandfather Other (see comment) Paternal Aunt Lung problems Cancer Maternal Uncle INTERIM PHYSICAL EXAMINATION: Blood pressure 109/56, pulse 89, height 1.803 m (5' 11"), weight 71.8 kg (158 lb 4.6 oz). B antonino mass index is 22.08 kg/m. GENERAL: Brayden Kohler is in no acute distress with unlabored respirations. SPINE: The patient s incision is well healed. EXTREMITIES: No lower extremity edema. NEUROLOGICAL EXAMINATION: MENTAL STATUS: The patient is awake, alert, and oriented. He follows simple and complex commands MOTOR EXAM: Motor strength is 5/5. This is unchanged when compared to the preoperative exa m. SENSORY EXAM: The sensory examination is improved when compared to the preoperative exam. RADIOGRAPHIC REVIEW: The patient s x-rays show stable instrumentation and alignment and were reviewed with the patient today. There have been no interval changes since the immediate postoperative films . Complete fusion has not yet occurred, but this is normal and would not be expected at thi s time. ASSESSMENT: Encounter Diagnosis Name Primary? Status post cervical spinal fusion Yes Past Medical History: Diagnosis Date Crohn's disease ([facility]) 1961 DDD (degenerative disc disease), lumbar Dyspnea Facet arthropathy, lumbar ([facility]) Fatigue Impacted cerumen Internal derangement of knee Iron deficiency Lumbago Lumbar herniated disc Lumbar radiculitis Lumbar spinal stenosis Microscopic hematuria Nephrolithiasis Neuropathy Nontropical sprue Restless leg syndrome Spondylolisthesis of lumbar region Tremor Vitamin B12 deficiency Vitamin D deficiency Wears dentures Full upper PLAN: Overall, the patient is doing well. The patient can see some improvements but continues to recover from recent surgery. I increased the patient s activities now allowing 15 pound lifting. The patient and also will begin the process of brace weaning. I would like the patient to advance slowly with t his process and discussed this at length during today's visit. I would also like the patien t to continue with postoperative rehabilitation and to advance with therapy as tolerated. 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 I am hoping to see improvement over the coming weeks to months and plan to continue to foll ow this patient. The patient will follow-up in clinic in around 8 weeks for re-evaluation. ELECTRONICALLY SIGNED BY: in this encounter Plan of Treatment +--------+---------+ + + + | Date | Type | Specialty | Care Team | Description | +--------+---------+ + + + | 03/02/ | Office | Neurosurgery | Eagle Pacheco MD | | | 2018 | Visit | | [address] [facility] | | | | | | [address] [place] | | | | | | [address] | | | | | | | | +--------+---------+ + + + + +--------+ + + | Name | Priori | Associated Diagnoses | Order Schedule | | | ty | | | + +--------+ + + | XR Lumbar Spine 2 or 3 Vw | Routin | Status post | Expected: | | | e | cervical spinal | 01/06/2018, Expires: | | | | fusion | 01/06/2019 | + +--------+ + + as of this encounter Visit Diagnoses + + | Diagnosis | + + | Status post cervical spinal fusion - Primary | + + | Arthrodesis status | + +
--- OUTSIDE RECORDS SUMMARY | ~2018-02-07 | XMS | Encounter Summary ---
Demographics + + + | Address | [address] | | | [place] [address] | + + + | Home Phone | | + + + | Preferred Language | Unknown | + + + | Marital Status | | + + + | Taoist Affiliation | Unknown | + + + | Race | Unknown | + + + | Ethnic Group | Unknown | + + + Author + + + | Author | Located Within [facility] | | | and [place] | + + + | Organization | Located Within [facility] | | | and [place] [...] [place] | | | | | [address] | | + + + + + Care Team Providers + +------+ + | Care Head Packager Name | Role | Phone | + [...] + + | 12/09/ | Hospital | [facility] | Eagle Pacheco MD | | | 2018 - | Encounter | MED CTR SURGICAL | [address] [place] | | | | | [address] [place] | [address] [place] | | | 12/10/ | | [place] [address] | [id number] | | | 2017 | | [phone] | | | +--------+ + + + [...] a 77 y.o.malethat had seen us [facility]. The patient was found [...] Electronically signed by: Jemima Jalloh, 12/10/2017 8:34 [facility] in this encounter Discharge Instructions yTesha Jalloh PA-C - 12/10/2017Discharge Instructions for Cervical [...] t raise your hands over your head [id number](s)after your surgery. Don t drive until your [...] heals appropriately. You may get emails from [facility] about your clinical results for the next [...] Progress Notes Tyesha Jalloh PA-C - 12/10/2017 3813 PDTFormatting of this note may be different f rom the original. [facility] NEUROSURGERY PROGRESS NOTE PATIENT NAME: Brayden Kohler [...] and nondistended. EXTREMITIES: No edema or swelling. [facility] NEUR[facility]ICAL EXAM: MENTAL STATUS: The patient is awake, alert, and oriented. He follows simple and complex commands. He speech is fluent, his comprehends speech well, and his repeats well. He has no apparent deficits with short or prison memory. MOTOR EXAM: Motor strength is stable [...] 2017 | Visit | | [address] [facility] | | | | | | [address] | [place] | [phone] | | [facility] | | [address] | | | - LABORATORY | | | | + + + + + | [facility] | [address] | [place], [place] | | | [facility] | | [address] | | | - LABORATORY | | [...]
--- OUTSIDE RECORDS SUMMARY | ~2018-02-07 | XMS | Encounter Summary ---
Demographics + + + | Address | [address] | | | [place] [address] | + + + | Home Phone | | + + + | Preferred Language | Unknown | + + + | Marital Status | | + + + | Adventism Affiliation | Unknown | + + + | Race | Unknown | + + + | Ethnic Group | Unknown | + + + Author + + + | Author | [facility] | | | and [place] | + + + | Organization | [facility] | | | and [...] [place] | | | | | [address] | | + + + + + Care Team Providers + +------+ + | Care Director Of Vital Statistics Name | Role | Phone | + +------+ + | Carlos Javier MD | PCP | | + +------+ + Encounter Details +--------+ + + + + | Date | Type | Department | Care Team | Description | +--------+ + + + + | 07/16/ | Orders Only | [facility] [place] | Eagle Pacheco MD | Cervical spondylosis | | 2018 | | NEUROSURGERY [address] | [address] | with myelopathy | | | | [address] | [address] [place] | (Primary Dx); | | | | [place], [place] | [address] | Neuropathy; H/O | | | | [address] | | Cervical Fusion - | | | | [phone] | | C5-6 - 2008; | | | | | | Cervical spinal | | | | | | stenosis | +--------+ + + + + Social [...] 2018 | Visit | | [address] [facility] | | | | | | [address] [place] | | | | | | [phone] | | | | | | | | +--------+---------+ + + + as of this encounter Results XR Cervical Spine 2 or 3 Views (01/06/2018 1001) + + + | Narrative | Performed [...] + | Massimo, Rad Results In - 01/06/2018 1112 PDT CLINICAL [...] | | | + +---------+ + + in this encounter Visit Diagnoses + + | Diagnosis | + + | Cervical spondylosis with myelopathy - Primary | + + | Neuropathy | + + | Mononeuritis of unspecified site | + + | H/O Cervical Fusion - C5-6 - 2008 | + + | Arthrodesis status | + + | Cervical spinal stenosis | + + | Spinal stenosis in cervical region | + +"
--- OUTSIDE RECORDS SUMMARY | ~2018-02-07 | XMS | Encounter Summary ---
Demographics + + + | Address | [address] | | | [place] [address] | + + + | Home Phone | | + + + | Preferred Language | Unknown | + + + | Marital Status | | + + + | Hindu Affiliation | Unknown | + + + | Race | Unknown | + + + | Ethnic Group | Unknown | + + + Author + + + | Author | [facility] | | | and [place] | + + + | Organization | [facility] | | | and [place] [...] [place] | | | | | [address] | | + + + + + Care Team Providers + +------+ + | Care Service Attendant Cafeteria Name | Role | Phone | + +------+ + | Carlos Javier MD | PCP | | + +------+ + Encounter Details +--------+ + + + + | Date | Type | Department | Care Team | Description | +--------+ + + + + | 12/01/ | [facility] | [facility] | Eagle Pacheco MD | Neuropathy; Cervical | | 2018 | Encounter | MED CTR XRAY [address] | [address] | spondylosis with | | | | [place] | [address] [place], [place] | myelopathy; | | | | [place] [address] | [address] | Decreased glomerular | | | | [phone] | | filtration rate | | | | | Brayden Mackey MD | (GFR); Cervical | | | | | [address] [facility] | spinal stenosis; H/O | | | | | [place] | Cervical Fusion - | | | | | [address] | C5-6 - 2008; Anemia, | | [...] + + + as of this encounter Medications at Time of Discharge [...] + + + +---------+ + + | | Take 1-2 tablets by | | 0 | 01/30/20 | | | HYDROcodone-acetamin | mouth every 6 hours | | | 17 | 8 | | ophen (NORCO) 10-325 | as needed. | | | | | | mg per tablet | | | | | [...] +---------+ + + as of this encounter Plan of Treatment +--------+---------+ + + + | Date | Type | Specialty | Care Team | Description | +--------+---------+ + + + | 03/02/ | Office | Neurosurgery | Eagle Pacheco MD | | | 2018 | Visit | | [address] [facility] | | | | | | [address] [place] | | | | | | [address] | | | | | | | [...] + + + in this encounter Results XR Chest PA and Lateral (12/01/2017 1538) [...] + | Diagnosis | + + | Neuropathy | + + | Mononeuritis of unspecified site | + + | Cervical spondylosis with myelopathy | + + | Decreased glomerular filtration rate (GFR) | + + | Cervical spinal stenosis | + + | Spinal stenosis in cervical region | + + | H/O Cervical Fusion - C5-6 - 2008 | + + | Arthrodesis status | + + | Anemia, unspecified type | + + Admitting Diagnoses + + | Diagnosis | + + | Preoperative clearance | + + | Preoperative examination, unspecified | + +"
--- OUTSIDE RECORDS SUMMARY | ~2018-02-07 | XMS | Encounter Summary ---
Demographics + + + | Address | [address] | | | [place] [address] | + + + | Home Phone | | + + + | Preferred Language | Unknown | + + + | Marital Status | | + + + | Hoahaoism Affiliation | Unknown | + + + | Race | Unknown | + + + | Ethnic Group | Unknown | + + + Author + + + | Author | [facility] | | | and [place] | + + + | Organization | [facility] | | | and [place] | [...] [place], [place] | | | | | [address] | | + + + + + Care Team Providers + +------+ + | Care Grain Handler Name | Role | Phone | + +------+ + | Carlos Javier MD | PCP | | + +------+ + Encounter Details +--------+ + + + + | Date | Type | Department | Care Team | Description | +--------+ + + + + | 11/12/ | Orders Only | [facility] [place] | Eagle Pacheco MD | | | 2018 | | NEUROSURGERY [address] | [address] | | | | | [address] | [address] [place] | | | | | [place], [place] | [address] | | | | | [address] | | | | | | [phone] | | | +--------+ + + + [...] 2018 | Visit | | [address] [facility] | | | | | | [address] [place] | | | | | | [id number] | | | | | | | | +--------+---------+ + + + as of this encounter Visit Diagnoses Not on filein this encounter"
--- OUTSIDE RECORDS SUMMARY | ~2018-02-07 | XMS | Encounter Summary ---
Demographics + + + | Address | [address] | | | [place] [address] | + + + | Home Phone | | + + + | Preferred Language | Unknown | + + + | Marital Status | | + + + | Hinduism Affiliation | Unknown | + + + | Race | Unknown | + + + | Ethnic Group | Unknown | + + + Author + + + | Author | [facility] | | | and [place] | + + + | Organization | [facility] | | | and [...] [place] | | | | | [address] | | + + + + + Care Team Providers + +------+ + | Care Local Az Truck Driver Name | Role | Phone | + +------+ + | Kelly Sosa MD | PCP | | + +------+ + Reason for Visit + + + | Reason | Comments | + + + | Post-op Question | | + + + Encounter Details +--------+ + + + + | Date | Type | Department | Care Team | Description | +--------+ + + + + | 12/23/ | Telephone | [facility] [place] | Eagle Pacheco MD | Post-op Question | | 2018 | | NEUROSURGERY [address] | [address] | | | | | [address] | [address] [place], [place] | | | | | [place], [place] | [address] | | | | | [address] | | | | | | [phone] | | | +--------+ + + + [...] 2017 | Visit | | [address] [facility] | | | | | | [address] [place] | | | | | | [address] | | | | | | | | +--------+---------+ + + + as of this encounter Visit Diagnoses Not on filein this encounter"
--- OUTSIDE RECORDS SUMMARY | ~2018-02-07 | XMS | Encounter Summary ---
Demographics + + + | Address | [address] | | | [place] [address] | + + + | Home Phone | | + + + | Preferred Language | Unknown | + + + | Marital Status | | + + + | Orthodox Affiliation | Unknown | + + + | Race | Unknown | + + + | Ethnic Group | Unknown | + + + Author + + + | Author | [facility] | | | and [place] | + + + | Organization | [facility] | | | and [place] [...] [place] | | | | | [address] | | + + + + + Care Team Providers + +------+ + | Care Regional Safety Manager Name | Role | Phone | + [...] | | | | | | | MD | | | | | | | ARTHRODESIS | | | | | | | ANT | | | | | | | INTERBODY | | | | | | | INC | | | | | | | DISCECTOMY, | | | | | | | CERVICAL | | | | | | | BELOW C2 MD | | | | | | | ARTHRODESIS | | | | | | | ANT | | | | | | | INTERBODY | | | | | | | INC | | | | | | | DISCECTOMY, | | | | | | | CERVICAL | | | | | | | BELOW C2 MD | | | | | | | [...] | | | | | | | MD ALLOGRAFT | | | | | | [...] | | | | | | SEGMENTS MD | | | | | | | INSJ | | | | | | | BIOMCHN DEV | | | | | | | INTERVERTEBR | | | | | | | AL DSC SPC | | | | | | | W/ARTHRD MD | | | | | | | INSJ | | | | | | | BIOMCHN DEV | | | | | | | INTERVERTEBR | | | | | | | AL DSC SPC | | | | | | | W/ARTHRD MD | | | | | | | INSJ | | | | | | | BIOMCHN DEV | | | | | | | INTERVERTEBR | | | | | | | AL DSC SPC | | | | | | | W/ARTHRD MD | | | | | | | [...] | | | | | | SEGMENTS MD | | | | | | | [...] +--------+--------+ + + + + Encounter Details +--------+---------+ + + + | Date | Type | Department | Care Team | Description | +--------+---------+ + + + | 12/09/ | Surgery | [facility] | Eagle Pacheco MD | C3-4, C4-5, C6-7 | | 2018 | | MED CTR OR INTRA OP | [address] | Anterior Cervical | | | | [address] | [address] [place], [place] | Discectomy Fusion w/ | | | | [place], [place] | [address] | C5-6 Hardware | | | | [address] | | Revision | | | | [phone] | | | +--------+---------+ + + + [...] a 77 y.o.malethat had seen us last [facility] back pain. The patient was found to [...] Electronically signed by: Jemima Jalloh, 12/10/2017 8:34 [facility] in this encounter Discharge Instructions Tyesha Jalloh [...] t raise your hands over your head [id number](s)after your surgery. Don t drive until your [...] heals appropriately. You may get emails from [employer] about your clinical results for the next [...] for your postoperative [facility] booklet that you were [...] Progress Notes Tyesha Jalloh PA-C - 12/10/2017 0823 PDTFormatting of this note may be different f rom the original. [facility] NEUROSURGERY PROGRESS NOTE PATIENT NAME: Brayden Kohler [...] Arvin Baeza PA-C 10 0 mg at 12/09/172145 enalaprilat (VASOTEC) injection 1.25 mg 1.25 mg Intravenous Q6H PRN Arvin english PA-C famotidine (PEPCID) tablet 20 mg 20 mg Oral BID Arvin Baeza PA-C 20 mg at 0 12/09/17 214 ferrous gluconate (FERGON) tablet 324 mg 324 [...] and nondistended. EXTREMITIES: No edema or swelling. [facility]'s NEUROLOGICAL EXAM: MENTAL STATUS: The patient is awake, alert, and oriented. He follows simple and complex commands. He speech is fluent, his comprehends speech well, and his repeats well. He has no apparent deficits with short or oil heaterman memory. MOTOR EXAM: Motor strength is stable SENSORY EXAM: Sensory exam is stable 24 HOUR LABS: All Component Based Labs 12/09/17 1329 Glucose, POC 114(H) ASSESSMENT: NEUROSURGICAL DIAGNOSES: S/p Cervical Operation, Hospital Day 1 HOSPITAL/GENERAL DIAGNOSES: Past Medical History: Diagnosis Date Crohn's disease ([facility]) 1961 DDD (degenerative disc disease), lumbar Dyspnea Facet arthropathy, lumbar ([facility]) Fatigue Impacted cerumen Internal derangement of [...] [place] | | | | | | [address] | | | | | | | [...] XR Cervical Spine 2 or 3 Views (12/09/20171955) + + + | Narrative | Performed [...] + | Massimo, Rad Results In - 12/09/20172052 PDT XR CERVICAL SPINE 2 OR 3 [...] | | + +---------+ + + [place] RolandaElmo Ceballos No Charge (12/09/2017 6702) + + + | Narrative | Performed [...] | 70 - 109 mg/dL | [facility]. | | | | | [facility] [...] | + + + + + | [facility] [address] | [address] | [place], [place] | [phone] | | [facility] | | [address] | | | - LABORATORY | | | | + + + + + | [facility] | [address] | [place], [place] | | | [facility] | | [address] | | | - LABORATORY | | | | + + + + + in this encounter Visit Diagnoses Not on filein this encounter Admitting Diagnoses + + | Diagnosis | + + | Cervical spondylosis with myelopathy (M47.12), Neuropathy (G62.9), History of fusion of | | cervical spine (Z98.1), Cervical spinal stenosis (M48.02) | + + Administered Medications + +--------+ +---------+------+ + | Medication Order | MAR | Action | Dose | Rate | Site | | | Action | Date | | | | + +--------+ +---------+------+ + | bacitracin in NS solution PRN, | Given | | 50,000 | | Surgical | | Starting 12/09/17 at 1607, | | 8 16:07 | Units | | Site | | Intra-op | | PDT | | | | + +--------+ +---------+------+ + +---+---+ | | | +---+---+ + +-------+ [...] | | | | Starting Thu12/09/17 at 2011, Use | | | | | | | if methocarbamol ineffective or | | | | | | | not ordered. | | | | | | + +-------+ +-------+---+---+ + +---+ | | | + +---+ [...] | mL/hr | | | CONTINUOUS, Starting Thu12/09/17 | | PDT | | | [...] | PDT | | | | | 2030, Post-op/Phase II | | | | | [...] | | | HOURS PRN, Pain, Starting Wed | | PDT | | [...]
--- OUTSIDE RECORDS SUMMARY | ~2018-02-07 | XMS | Encounter Summary ---
Demographics + + + | Address | [address] | | | [place] [address] | + + + | Home Phone | | + + + | Preferred Language | Unknown | + + + | Marital Status | | + + + | Presybeterian Affiliation | Unknown | + + + | Race | Unknown | + + + | Ethnic Group | Unknown | + + + Author + + + | Author | [facility] | | | and [place] | + + + | Organization | [facility] | | | and [...] [place] | | | | | [address] | | + + + + + Care Team Providers + +------+ + | Care Chin Strap Cutter Name | Role | Phone | [...] | (Primary Dx); | | | | [place], [place] | [address] | Neuropathy; H/O | | | | [address] | | Cervical Fusion - | | | | [phone] | | C5-6 - 2008; | | [...] 2018 | Visit | | [address] [facility] | | | | | | [address] [place] | | | | | | [phone] | | | | | | | [...]
--- OUTSIDE RECORDS SUMMARY | ~2018-02-07 | XMS | Encounter Summary ---
Demographics + + + | Address | [address] | | | [place] [address] | + + + | Home Phone | | + + + | Preferred Language | Unknown | + + + | Marital Status | | + + + | Christianity Affiliation | Unknown | + + + | Race | Unknown | + + + | Ethnic Group | Unknown | + + + Author + + + | Author | [facility] | | | and [place] | + + + | Organization | [facility] | | | and [place] [...] [place] | | | | | [address] | | + + + + + Care Team Providers + +------+ + | Care Civil Engineering Director Name | Role | Phone | + +------+ + | Carlos Javier MD | PCP | | + +------+ + Reason for Visit + + + | Reason | Comments | + + + | Pre-op Exam | | + + + Encounter Details +--------+---------+ + + + | Date | Type | Department | Care Team | Description | +--------+---------+ + + + | 12/01/ | Office | [facility] [place] | Eagle Pacheco MD | Cervical spondylosis | | 2018 | Visit | NEUROSURGERY [address] | [address] | with myelopathy | | | | [address] | [address] [place] | (Primary Dx); | | | | [place] | [address] | Cervical spinal | | | | [address] | | stenosis; H/O | | | | [phone] | | Cervical Fusion - | | | | | | C5-6 - 2007; | | | | | | Neuropathy | +--------+---------+ + + + Social History [...] + + + | Blood Pressure | 165/83 | 12/01/2017 1325 PDT | + + + + | Pulse | 52 | 12/01/2017 1325 PDT | + + + + | Temperature | - | - | + + + + | Respiratory Rate | - | - | + + + + | Oxygen Saturation | - | - | + + + + | Inhaled Oxygen | - | - | | Concentration | | | + + + + | Weight | 75 kg (165 lb 5.5 | 12/01/20171324 PDT | | | oz) | | + + + + | Height | 180.3 cm (5' 11") | 12/01/20171324 PDT | + + + + | Body Mass Index | 23.06 | 12/01/20171324 PDT | + + + + in [...] + + + as of this encounter Progress Notes Constanza Shah RN - 12/01/2017 1300 PDTPatient in office for pre op appointment. Patient advised at this time to stop: multi vit (7 days prior). Patient verbalized understanding. Al shubham questions answered at this time. I Constanza Shah RN witnessed the patient leaving the office with a cervical collar which was provided by a marketing sales representative of [employer]. ISABEL Burgos Rita G, Egg Smeller - 12/01/2017 1300 PDTREVIEW OF SYSTEMS GENERALLY: No fever, no night sweats, no anemia, no fatigue, no recent profound weight ch anges. EYES: No eye problems, no use of corrective lenses, no eye injury, no double vision, no bl indness. EARS, NOSE, AND THROAT: No changes in taste or smell, no hearing difficulty, no ringing in the ears, no ear drainage, + dizziness, no voice changes, no difficulty swallowing, no sign ificant snoring, no sleep apnea, no sinus problems, no major dental work. NEUROLOGICALLY: Please see the review of systems discussed above in the history of present illness. In addition, the patient has awake with numbness/pain, coordination difficulty, p ain in neck, pain in back. PSYCHIATRIC: No depression, no sleep disorders, no anxiety, no bipolar disorder, no psycho tic episodes. CARDIOVASCULAR: No heart attacks, no heart murmur, no heart fluttering, no chest pain, no ankle swelling. LUNG DISEASE: No shortness of breath, no cough, no tuberculosis, no bloody cough, no asth ma, no emphysema/COPD. GASTROINTESTINAL: + bowel disease, no nausea or vomiting, no rectal bleeding, no constipat ion, no stool incontinence, no liver disease, no gallbladder disease, no abdominal pain, no ulcers. KIDNEY DISEASE: + urinary frequency, no painful or difficult urination, no incontinence. ENDOCRINE: No diabetes, no thyroid disease, no osteopenia or osteoporosis, no breast drain age. SKIN: No breast lumps, no skin changes, no rashes, no itches. HEMATOLOGIC/LYMPHATIC: No enlarged lymph nodes, no easy or unusual bleeding, no personal h istory of cancer. RHEUMATOLOGIC: No joint arthritis, no rheumatoid arthritis. in this encounter Plan of Treatment +--------+---------+ + + + | Date | Type | Specialty | Care Team | Description | +--------+---------+ + + + | 03/02/ | Office | Neurosurgery | Eagle Pacheco MD | | | 2018 | Visit | | [address] [facility] | | | | | | [address] [place], [place] | | | | | | [address] | | | | | | | | +--------+---------+ + + + as of this encounter Visit Diagnoses + + | Diagnosis | + + | Cervical spondylosis with myelopathy - Primary | + + | Cervical spinal stenosis | + + | Spinal stenosis in cervical region | + + | H/O Cervical Fusion - C5-6 - 2008 | + + | Arthrodesis status | + + | Neuropathy | + + | Mononeuritis of unspecified site | + +
--- OUTSIDE RECORDS SUMMARY | ~2018-02-07 | XMS | Encounter Summary ---
Demographics + + + | Address | [address] | | | [place] [address] | + + + | Home Phone | | + + + | Preferred Language | Unknown | + + + | Marital Status | | + + + | Mandaen Affiliation | Unknown | + + + | Race | Unknown | + + + | Ethnic Group | Unknown | + + + Author + + + | Author | [facility] | | | and [place] | + + + | Organization | [facility] | | | and [place] [...] [place] | | | | | [address] | | + + + + + Care Team Providers + +------+ + | Care Senior Technical Architect Name | Role | Phone | + +------+ + | Carlos Javier MD | PCP | | + +------+ + Encounter Details +--------+ + + + + | Date | Type | Department | Care Team | Description | +--------+ + + + + | 11/12/ | Episode | [facility] | [place], | | | 2018 | Changes | NEUROSURGERY [address] | [employer] Home Park Manager | | | | | [address] [facility] [address] | | | | | | [place] | | | | | | [address] | | | | | | [phone] | | | +--------+ + + + [...] 2018 | Visit | | [address] [facility] | | | | | | [address] [place] | | | | | | [address] | | | | | | | | +--------+---------+ + + + as of this encounter Visit Diagnoses Not on filein this encounter"
--- OUTSIDE RECORDS SUMMARY | ~2018-02-07 | XMS | Encounter Summary ---
Demographics + + + | Address | [address] | | | [place] [address] | + + + | Home Phone | | + + + | Preferred Language | Unknown | + + + | Marital Status | | + + + | Advent Affiliation | Unknown | + + + | Race | Unknown | + + + | Ethnic Group | Unknown | + + + Author + + + | Author | [facility] | | | and [place] | + + + | Organization | [facility] | | | and [place] [...] [place] | | | | | [address] | | + + + + + Care Team Providers + +------+ + | Care Horse Race Starter Name | Role | Phone | + [...] | | | | | | | [place] | | | | | | | ARTHRODESIS | | | | | | | ANT | | | | | | | INTERBODY | | | | | | | INC | | | | | | | DISCECTOMY, | | | | | | | CERVICAL | | | | | | | BELOW C2 [place] | | | | | | | ARTHRODESIS | | | | | | | ANT | | | | | | | INTERBODY | | | | | | | INC | | | | | | | DISCECTOMY, | | | | | | | CERVICAL | | | | | | | BELOW C2 [place] | | | | | | | [...] | | | | | | | [place] ALLOGRAFT | | | | | | [...] | | | | | | SEGMENTS [place] | | | | | | | INSJ | | | | | | | BIOMCHN DEV | | | | | | | INTERVERTEBR | | | | | | | AL DSC SPC | | | | | | | W/ARTHRD [place] | | | | | | | INSJ | | | | | | | BIOMCHN DEV | | | | | | | INTERVERTEBR | | | | | | | AL DSC SPC | | | | | | | W/ARTHRD [place] | | | | | | | INSJ | | | | | | | BIOMCHN DEV | | | | | | | INTERVERTEBR | | | | | | | AL DSC SPC | | | | | | | W/ARTHRD [place] | | | | | | | [...] | | | | | | SEGMENTS [place] | | | | | | | [...] + + | 12/09/ | Hospital | [facility] | Eagle Pacheco MD | | | 2018 | Encounter | MED CTR XRAY [address] | [address] | | | | | [place] | [address] [place], [place] | | | | | [place] [address] | [address] | | | | | [phone] | | | +--------+ + + + [...] Visit | | [address] | | | | | | [address] [place] | | | | | | [address] | | | | | | | | +--------+---------+ + + + as of this encounter Procedures + +--------+ + + + | Procedure Name | Priori | Date/Time | Associated Diagnosis | Comments | | | ty | | | | + +--------+ + + + | EDISON XIAOM STATS NO | Routin | 12/09/2017 | | Results for this | | CHARGE | e | 1733 PDT | | procedure are in the | | | | | | results section. | + +--------+ + + + in this encounter Visit Diagnoses Not on filein this encounter"
--- OUTSIDE RECORDS SUMMARY | ~2018-02-07 | XMS | Encounter Summary ---
Demographics + + + | Address | [address] | | | [place] [address] | + + + | Home Phone | | + + + | Preferred Language | Unknown | + + + | Marital Status | | + + + | Denominational Affiliation | Unknown | + + + | Race | Unknown | + + + | Ethnic Group | Unknown | + + + Author + + + | Author | [facility] | | | and [place] | + + + | Organization | [facility] | | | and [place] | [...] [place] | | | | | [address] | | + + + + + Care Team Providers + +------+ + | Care Dentistry Teacher Name | Role | Phone | + [...] | Changes | NEUROSURGERY [address] | Pig Machine Operator Helper | | | | | [address] [facility] [address] | | | | | | [place] | | | | | | [address] | | | | | | [phone] | | | +--------+ + + + [...] 2018 | Visit | | [address] [facility] | | | | | | [address] [place] | | | | | | [address] | | | | | | | | +--------+---------+ + + + as of this encounter Visit Diagnoses Not on filein this encounter"
--- OUTSIDE RECORDS SUMMARY | ~2018-02-07 | XMS | Encounter Summary ---
Demographics + + + | Address | [address] | | | [place] [address] | + + + | Home Phone | | + + + | Preferred Language | Unknown | + + + | Marital Status | | + + + | Jain Affiliation | Unknown | + + + | Race | Unknown | + + + | Ethnic Group | Unknown | + + + Author + + + | Author | [facility] | | | and [place] | + + + | Organization | [facility] | | | and [place] [...] [place] | | | | | [address] | | + + + + + Care Team Providers + +------+ + | Care Artificial Glass Eye Maker Name | Role | Phone | + +------+ + | Kelly Sosa MD | PCP | | + +------+ + Reason for Visit + + + | Reason | Comments | + + + | Medication Prior | Oxycodone | | Authorization | | + + + Encounter Details +--------+ + + + + | Date | Type | Department | Care Team | Description | +--------+ + + + + | 12/11/ | Telephone | [facility] | Eagle Pacheco MD | Medication Prior | | 2018 | | NEUROSURGERY [address] | [address] | Authorization | | | | [address] | [address] [place], [place] | (Oxycodone ) | | | | [place], [place] | [id number] | | | | | [address] | | | | | | [phone] | | | +--------+ + + + [...] 2017 | Visit | | [address] [facility] | | | | | | [address] [place] | | | | | | [phone] | | | | | | | | +--------+---------+ + + + as of this encounter Visit Diagnoses Not on filein this encounter"
--- OUTSIDE RECORDS SUMMARY | ~2018-02-07 | XMS | Encounter Summary ---
Demographics + + + | Address | [address] | | | [place] [address] | + + + | Home Phone | | + + + | Preferred Language | Unknown | + + + | Marital Status | | + + + | Mu-Ism Affiliation | Unknown | + + + | Race | Unknown | + + + | Ethnic Group | Unknown | + + + Author + + + | Author | [facility] | | | and [place] | + + + | Organization | [facility] | | | and [place] | + + + | Address | Unknown | + + + | Phone | Unavailable | + + + Support + + + + + | Name | Relationship | Address | Phone | + + + + + | Xochitl Gomez | ECON | [address] | | | | | [place] | | | | | [address] | | + + + + + Care Team Providers + +------+ + | Care Hand Brim Ironer Name | Role | Phone | + +------+ + | Kelly Sosa MD | PCP | | + +------+ + Encounter Details +--------+ + + + + | Date | Type | Department | Care Team | Description | +--------+ + + + + | 01/06/ | 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 | Disp. | Refills | Start | End Date | | | | | | Date | | + + +---------+---------+ + + | carbidopa-levodopa | Take 2 tablets by | | 1 | 02/10/20 | | | (SINEMET) 10-100 mg | mouth nightly. | | | 17 | | | per tablet | | | | | | + + +---------+---------+ + + | cyclobenzaprine | Take 0.5-1 tablets | 90 | 3 | 12/11/19 | | | (FLEXERIL) 10 mg | by mouth 3 times | tablet | | 18 | | | tablet | daily as needed for | | | | | | | Muscle spasms. | | | | | + + +---------+---------+ + + | ELIQUIS 5 MG | | | | 12/30/19 | | | tablet | | | | 18 | | + + +---------+---------+ + + | famotidine | take 1 tablet by | | 1 | 11/28/19 | | | (PEPCID) 20 mg | mouth every 12 hours | | | 18 | | | tablet | | | | | | + + +---------+---------+ + + | ferrous gluconate | Take 1 tablet by | | 0 | 11/03/19 | | | (FERGON) 324 mg | mouth 3 times daily. | | | 18 | | | tablet | | | | | | + + +---------+---------+ + + | lisinopril | take 1 tablet by | | 0 | 12/01/19 | | | (PRINIVIL, ZESTRIL) | mouth once daily | | | 18 | | | 10 mg tablet | | | | | | + + +---------+---------+ + + | pramipexole | Take 0.5 mg by mouth | | | | | | (MIRAPEX) 0.25 mg | nightly. Take 1 | | | | | | tablet | tablet a noon and | | | | | | | two tablets at | | | | | | | bedtime. | | | | | + + +---------+---------+ + + | predniSONE | take 3 [...] | | | | | + + +---------+---------+ + + | tamsulosin | Take 1 capsule by | 30 | 1 | 09/05/19 | | | (FLOMAX) 0.4 mg CAPS | mouth daily (after | capsule | | 18 | | | | breakfast). | | | | | + + +---------+---------+ + + as of this encounter Plan of Treatment +--------+---------+ + + + | Date | Type | Specialty | Care Team | Description | +--------+---------+ + + + | 03/02/ | Office | Neurosurgery | Eagle Pacheco MD | | | 2018 | Visit | | [address] [facility] | | | | | [...] + + in this encounter Results XR Cervical [...] spondylosis with myelopathy | + + | Neuropathy | + + | Mononeuritis of unspecified site | + + | H/O Cervical Fusion - C5-6 - 2008 | + + | Arthrodesis status | + + | Cervical spinal stenosis | + + | Spinal stenosis in cervical region | + +"
--- OUTSIDE RECORDS SUMMARY | ~2018-02-07 | XMS | Encounter Summary ---
Demographics + + + | Address | [address] | | | [place] [address] | + + + | Home Phone | | + + + | Preferred Language | Unknown | + + + | Marital Status | | + + + | Latter-Day Affiliation | Unknown | + + + | Race | Unknown | + + + | Ethnic Group | Unknown | + + + Author + + + | Author | [facility] | | | and [place] | + + + | Organization | [facility] | | | and [place] [...] [place], [place] | | | | | [address] | | + + + + + Care Team Providers + +------+ + | Care Supervisor Fertilizer Processing Name | Role | Phone | + +------+ + | Kelly Sosa MD | PCP | | + +------+ + Encounter Details +--------+ + + + + | Date | Type | Department | Care Team | Description | +--------+ + + + + | 12/09/ | Procedure | [facility] | | | | 2018 | Pass | MED CTR OR INTRA OP | | | | | | [address] | | | | | | [place] | | | | | | [address] | | | | | | [phone] | | | +--------+ + + + [...] 2018 | Visit | | [address] [facility] | | | | | | [address] [place] | | | | | | [address] | | | | | | | | +--------+---------+ + + + as of this encounter Visit Diagnoses Not on filein this encounter"
--- OUTSIDE RECORDS SUMMARY | ~2018-02-07 | XMS | Encounter Summary ---
Demographics + + + | Address | [address] | | | [place] [address] | + + + | Home Phone | | + + + | Preferred Language | Unknown | + + + | Marital Status | | + + + | Confucianism Affiliation | Unknown | + + + | Race | Unknown | + + + | Ethnic Group | Unknown | + + + Author + + + | Author | [facility] | | | and [place] | + + + | Organization | [facility] [...] [place] | | | | | [address] | | + + + + + Care Team Providers + +------+ + | Care Forging Operator Name | Role | Phone | [...] + + | 12/01/ | Office | [facility] [place] | Eagle Pacheco MD | Cervical spondylosis | | 2018 | Visit | [address]UROSURGERY [address] | [address] | with myelopathy | | | | [address] | [address] [place] | (Primary Dx); | | | | [place], [place] | [address] | Cervical spinal | | | | [address] | | stenosis; H/O | | | | [phone] | | Cervical Fusion - | | [...] cervical collar which was provided by a dairy supplies sales representative of [employer]. ISABEL Burgos Rita G, Loss Prevention Guard - 12/01/2017 1300 PDTREVIEW OF SYSTEMS GENERALLY: [...] 2018 | Visit | | [address] [facility] | | | | | | [address] [place], [place] | | | | | | [address] | | | | | | | [...]
--- OUTSIDE RECORDS SUMMARY | ~2018-02-07 | XMS | Encounter Summary ---
Demographics + + + | Address | [address] | | | [place] [address] | + + + | Home Phone | | + + + | Preferred Language | Unknown | + + + | Marital Status | | + + + | Faith Affiliation | Unknown | + + + | Race | Unknown | + + + | Ethnic Group | Unknown | + + + Author + + + | Author | [facility] | | | and [place] | + + + | Organization | [facility] | [...] [place] | | | | | [address] | | + + + + + Care Team Providers + +------+ + | Care Independent Contractor Name | Role | Phone | + [...] | | | | | | | [place] | | | | | | | ARTHRODESIS | | | | | | | ANT | | | | | | | INTERBODY | | | | | | | INC | | | | | | | DISCECTOMY, | | | | | | | CERVICAL | | | | | | | BELOW C2 [place] | | | | | | | ARTHRODESIS | | | | | | | ANT | | | | | | | INTERBODY | | | | | | | INC | | | | | | | DISCECTOMY, | | | | | | | CERVICAL | | | | | | | BELOW C2 [place] | | | | | | | [...] | | | | | | | [place] ALLOGRAFT | | | | | | [...] | | | | | | SEGMENTS [place] | | | | | | | INSJ | | | | | | | BIOMCHN DEV | | | | | | | INTERVERTEBR | | | | | | | AL DSC SPC | | | | | | | W/ARTHRD [place] | | | | | | | INSJ | | | | | | | BIOMCHN DEV | | | | | | | INTERVERTEBR | | | | | | | AL DSC SPC | | | | | | | W/ARTHRD [place] | | | | | | | INSJ | | | | | | | BIOMCHN DEV | | | | | | | INTERVERTEBR | | | | | | | AL DSC SPC | | | | | | | W/[place]THRD [place] | | | | | | | [...] | | | | | | [place] | | | | | | | [...] + | 12/09/ | Surgery | [facility] | Eagle Pacheco MD | C3-4, C4-5, C6-7 | | 2018 | | MED CTR OR INTRA OP | [address] | Anterior Cervical | | | | [address] | [address] [place], [place] | Discectomy Fusion w/ | | | | [place], [place] | [address] | C5-6 Hardware | | | | [address] | | Revision | | | | [phone] | | | +--------+---------+ + + + [...] a 77 y.o.malethat had seen us last [facility] back pain. The patient was found to [...] Electronically signed by: Jemima Jalloh, 12/10/2017 8:34 [facility] in this encounter Discharge Instructions Tyesha Jalloh [...] t raise your hands over your head [id number])after your surgery. Don t drive until your [...] heals appropriately. You may get emails from [employer] about your clinical results for the next [...] postoperative [facility] booklet that you [...] may be different f rom the original. [facility] NEUROSURGERY PROGRESS NOTE PATIENT NAME: Brayden [...] 25 mg 25 mg Oral Q4H PRN Arvni Baeza PA-C Or diphenhydrAMINE (BENADRYL) 12.5 mg/5 [...] and nondistended. EXTREMITIES: No edema or swelling. [facility]'s NEUROLOGICAL EXAM: MENTAL STATUS: The patient is awake, alert, and oriented. He follows simple and complex commands. He speech is fluent, his comprehends speech well, and his repeats well. He has no apparent deficits with short or termite inspector memory. MOTOR EXAM: Motor strength is stable SENSORY EXAM: Sensory exam is stable 24 HOUR LABS: All Component Based Labs 12/09/17 1329 Glucose, POC 114(H) ASSESSMENT: NEUROSURGICAL DIAGNOSES: S/p Cervical Operation, Hospital Day 1 HOSPITAL/GENERAL DIAGNOSES: Past Medical History: Diagnosis Date Crohn's disease ([facility]) 1961 DDD (degenerative disc disease), lumbar Dyspnea Facet arthropathy, lumbar ([facility]) Fatigue Impacted cerumen Internal derangement of [...] 2017 | Visit | | [address] [facility] | | | | | | [address] [place] | | | | | | [address] | | | | | | | [...] + [place] RolandaElmo Ceballos No Charge (12/09/2017 4793) + + + | Narrative | Performed [...] | + + + + + | [facility] | [address] | [place], [place] | [phone] | | [facility] | | [address] | | | - LABORATORY | | | | + + + + + | [facility] | [address] | [place], [place] | | | [facility] | | [address] | | | - LABORATORY | | [...]
--- OUTSIDE RECORDS SUMMARY | ~2018-02-07 | XMS | Encounter Summary ---
Demographics + + + | Address | [address] | | | [place] [address] | + + + | Home Phone | | + + + | Preferred Language | Unknown | + + + | Marital Status | | + + + | Uatsdin Affiliation | Unknown | + + + | Race | Unknown | + + + | Ethnic Group | Unknown | + + + Author + + + | Author | [facility] | | | and [place] | + + + | Organization | [facility] | | | and [...] [place] | | | | | [address] | | + + + + + Care Team Providers + +------+ + | Care Hot Mill Shearer Name | Role | Phone | + [...] + + | 12/09/ | Anesthesia | [facility] | Marli Ray | | | 2018 | Event | MED CTR OR INTRA OP | Michi GARCIA MD [address] | | | | | [address] | [address] [place] | | | | | [place], [place] | [place] [address] | | | | | [address] | [phone] | | | | | [phone] | | | +--------+ + + + [...] +----+---+ + + | | 1 | Aguirre | | | | 5 | 43-degrees [...] +----+---+ + + | | 1 | Aguirre off | | | | 7 | [...] 12/10/17 1138 by | | eral | [id number] catheter system; | Lolly Benítez RN | [...] 2018 | Visit | | [address] [facility] | | | | | | [address] [place], [place] | | | | | | [address] | | | | | | | [...]
--- OUTSIDE RECORDS SUMMARY | ~2018-02-07 | XMS | Encounter Summary ---
Demographics + + + | Address | [address] | | | [place] [address] | + + + | Home Phone | | + + + | Preferred Language | Unknown | + + + | Marital Status | | + + + | Voodoo Affiliation | Unknown | + + + | Race | Unknown | + + + | Ethnic Group | Unknown | + + + Author + + + | Author | [facility] | | | and [place] | + + + | Organization | [facility] | | | and [...] [place] | | | | | [address] | | + + + + + Care Team Providers + +------+ + | Care Marketing Technology Coordinator Name | Role | Phone | + +------+ + | Kelly Sosa MD | PCP | | + +------+ + Encounter Details +--------+ + + + + | Date | Type | Department | Care Team | Description | +--------+ + + + + | 01/06/ | [facility] | Eagle Pacheco MD | 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
--- OUTSIDE RECORDS SUMMARY | ~2018-02-07 | XMS | Encounter Summary ---
Demographics + + + | Address | [address] | | | [place] [address] | + + + | Home Phone | | + + + | Preferred Language | Unknown | + + + | Marital Status | | + + + | Jehovah'S Witness Affiliation | Unknown | + + + | Race | Unknown | + + + | Ethnic Group | Unknown | + + + Author + + + | Author | [facility] | | | and [place] | + + + | Organization | [facility] | | | and [...] [place] | | | | | [address] | | + + + + + Care Team Providers + +------+ + | Care Recovery Advocate Name | Role | Phone | + +------+ + | Kelly Sosa MD | PCP | | + +------+ + Reason for Visit +---------+ + | Reason | Comments | +---------+ + | Post Op | Post-op Call | +---------+ + Encounter Details +--------+ + + + + | Date | Type | Department | Care Team | Description | +--------+ + + + + | 12/14/ | Telephone | [facility] [place] | Eagle Pacheco MD | Post Op (Post-op | | 2018 | | NEUROSURGERY [address] | [address] | Call) | | | | [address] | [address] [place], [place] | | | | | [place] | [address] | | | | | [address] | | | | | | [phone] | | | +--------+ + + + [...] 2018 | Visit | | [address] [facility] | | | | | | [address] [place] | | | | | | [address] | | | | | | | | +--------+---------+ + + + as of this encounter Visit Diagnoses Not on filein this encounter"
--- OUTSIDE RECORDS SUMMARY | ~2018-02-07 | XMS | Encounter Summary ---
Demographics + + + | Address | [address] | | | [place] [address] | + + + | Home Phone | | + + + | Preferred Language | Unknown | + + + | Marital Status | | + + + | Buddhism Affiliation | Unknown | + + + | Race | Unknown | + + + | Ethnic Group | Unknown | + + + Author + + + | Author | [facility] | | | and [place] | + + + | Organization | [facility] | | | and [place] [...] [place], [place] | | | | | [address] | | + + + + + Care Team Providers + +------+ + | Care Spinning Bath Person Name | Role | Phone | + +------+ + | Carlos Javier MD | PCP | | + +------+ + Encounter Details +--------+ + + + + | Date | Type | Department | Care Team | Description | +--------+ + + + + | 11/12/ | Orders Only | [facility] [place] | Eagle Pacheco MD | | | 2018 | | NEUROSURGERY [address] | [address] | | | | | [address] | [address] [place] | | | | | [place], [place] | [address] | | | | | [address] | | | | | | [phone] | | | +--------+ + + + [...] 2018 | Visit | | [address] [facility] | | | | | | [address] [place] | | | | | | [address] | | | | | | | | +--------+---------+ + + + as of this encounter Visit Diagnoses Not on filein this encounter"
--- OUTSIDE RECORDS SUMMARY | ~2018-02-07 | XMS | Encounter Summary ---
Demographics + + + | Address | [address] | | | [place] [address] | + + + | Home Phone | | + + + | Preferred Language | Unknown | + + + | Marital Status | | + + + | Yazidi Affiliation | Unknown | + + + | Race | Unknown | + + + | Ethnic Group | Unknown | + + + Author + + + | Author | [facility] | | | and [place] | + + + | Organization | [facility] | | | and [place] [...] [place] | | | | | [address] | | + + + + + Care Team Providers + +------+ + | Care Maintenance Man Name | Role | Phone | + [...] + + | 12/11/ | Telephone | [facility] | Eagle Pacheco MD | Medication Prior | | 2018 | | NEUROSURGERY [address] | [address] | Authorization | | | | [address] | [address] [place], [place] | (Oxycodone ) | | | | [place], [place] | [id number] | | | | | [address] | | | | | | [phone] | | | +--------+ + + + [...] 2017 | Visit | | [address] [facility] | | | | | | [address] [place] | | | | | | [address] | | | | | | | | +--------+---------+ + + + as of this encounter Visit Diagnoses Not on filein this encounter"
--- OUTSIDE RECORDS SUMMARY | ~2018-02-07 | XMS | Encounter Summary ---
Demographics + + + | Address | [address] | | | [place] [address] | + + + | Home Phone | | + + + | Preferred Language | Unknown | + + + | Marital Status | | + + + | Advent Affiliation | Unknown | + + + | Race | Unknown | + + + | Ethnic Group | Unknown | + + + Author + + + | Author | [facility] | | | and [place] | + + + | Organization | [facility] | | | and [place] [...] [place] | | | | | [address] | | + + + + + Care Team Providers + +------+ + | Care Senior Qa Analyst Name | Role | Phone | + [...] [address] | [address] [place] | (Primary Dx) | | | | [place] | [address] | | | | | [address] | | | | | | [phone] | | | +--------+ + + + [...] 2018 | Visit | | [address] [facility] | | | | | | [address] [place] | | | | | | [address] | | | | | | | | +--------+---------+ + + + as of this encounter Visit Diagnoses + + | Diagnosis | + + | Status post cervical spinal fusion - Primary | + + | Arthrodesis status | + +"
--- OUTSIDE RECORDS SUMMARY | ~2018-02-07 | XMS | Encounter Summary ---
Demographics + + + | Address | [address] | | | [place] [address] | + + + | Home Phone | | + + + | Preferred Language | Unknown | + + + | Marital Status | | + + + | Orthodoxy Affiliation | Unknown | + + + | Race | Unknown | + + + | Ethnic Group | Unknown | + + + Author + + + | Author | [facility] | | | and [place] | + + + | Organization | [facility] | | | and [place] [...] [place] | | | | | [address] | | + + + + + Care Team Providers + +------+ + | Care Wrapper Opener Name | Role | Phone | + +------+ + | Carlos Javier MD | PCP | | + +------+ + Encounter Details +--------+ + + + + | Date | Type | Department | Care Team | Description | +--------+ + + + + | 12/01/ | [facility] | [facility] | Eagle Pacheco MD | Neuropathy; Cervical | | 2018 | Encounter | MED CTR XRAY [address] | [address] | spondylosis with | | | | [place] | [address] [place], [place] | myelopathy; | | | | [place] [address] | [address] | Decreased glomerular | | | | [phone] | | filtration rate | | | | | Brayden Mackey MD | (GFR); Cervical | | | | | [facility] | spinal stenosis; H/O | | | | | [place] | Cervical Fusion - | | | | | [address] | C5-6 - 2008; Anemia, | | [...] Visit | | [address] [facility] | | | | | | [address] | | | | | | [address] | | | | | | | [...]
--- OUTSIDE RECORDS SUMMARY | ~2018-02-07 | XMS | Encounter Summary ---
Demographics + + + | Address | [address] | | | [place] [address] | + + + | Home Phone | | + + + | Preferred Language | Unknown | + + + | Marital Status | | + + + | Religion Affiliation | Unknown | + + + | Race | Unknown | + + + | Ethnic Group | Unknown | + + + Author + + + | Author | [facility] | | | and [place] | + + + | Organization | [facility] | | | and [...] [place] | | | | | [address] | | + + + + + Care Team Providers + +------+ + | Care Gas Distribution Supervisor Name | Role | Phone | + [...] | | | | | [address] [facility] [address] | | | | | | [place] | | | | | | [address] | | | | | | [phone] | | | +--------+ + + + [...] 2018 | Visit | | [address] [facility] | | | | | | [address] | | | | | | [address] | | | | | | | | +--------+---------+ + + + as of this encounter Visit Diagnoses Not on filein this encounter"
--- OUTSIDE RECORDS SUMMARY | ~2018-02-07 | XMS | Encounter Summary ---
Demographics + + + | Address | [address] | | | [place] [address] | + + + | Home Phone [...] Author | [facility] | | | and [place] | + + + | Organization | [facility] | | | and [place] [...] [place] | | | | | [address] | | + + + + + Care Team Providers + +------+ + | Care Trash Hauler Name | Role | Phone | + [...] | | | | CLINIC [address] | [address] | Dx); Cervical | | | | [place], [place] | [address] | spondylosis with | | | | [address] | | myelopathy; S/P | | | | [phone] | | cervical spinal | | | [...] | Visit | | [address] [facility] | | | | | | [address] | | | | | | [address] | | | | | | | [...] | | | | MORGAN GARNER MD ([id number]) | | | | | on 12/02/2017 [...] | | chromogenic agar method | | [facility] | | | | | CENTER - | | | | | LABORATORY | + + + + + | Culture | 3+ Coagulase positive | | [facility] | | | Staphylococcus | | [facility] | | | | | [facility] [...] + | [facility] | [address] | [place], [place] | [phone] | | [facility] | | [address] | | | - LABORATORY | | | | + + + + + | [facility] | [address] | [place], [place] | | | [facility] | | [address] | | | - LABORATORY | | [...] + | [facility] | [address] | [place] | [phone] | | [facility] | | [address] | | | - LABORATORY | | | | + + + + + | [facility] | [address] | [place] | | | [facility] | | [address] | | | - LABORATORY | | [...] [facility] | | | | | [facility] | | | | | [facility] [...] 11 | 7 - 18 mg/dL | [facility]. | | | | | [facility] | | | | | CENTER - | | | | | LABORATORY | + + + + + | Creatinine, | 0.98 | 0.60 - 1.30 mg/dL | [facility]. | | Serum/Plasma | | | [facility] | | | | | CENTER - | | | | | LABORATORY | + + + + + | eGFR if not | >60Comment: GLOMERULAR | >=60 mL/min/1.73m2 | [facility]. | | MONEGASQUE | FILTRATION | | [facility] | | | RATE,ESTIMATED mL/min | | CENTER - | | | /1.17t0Ztsj than 60 | | LABORATORY | | [...] [address] | [place] | [phone] | | [facility] | | [address] | | | - LABORATORY | | | | + + + + + | [facility] | [address] | [place], [place] | | | [facility] | | [address] | | | - LABORATORY | | [...]
--- OUTSIDE RECORDS SUMMARY | ~2018-02-07 | XMS | Encounter Summary ---
Demographics + + + | Address | [address] | | | [place] [address] | + + + | Home Phone | | + + + | Preferred Language | Unknown | + + + | Marital Status | | + + + | Catholic Affiliation | Unknown | + + + | Race | Unknown | + + + | Ethnic Group | Unknown | + + + Author + + + | Author | [facility] | | | and [place] | + + + | Organization | [facility] | | | and [place] [...] [place] | | | | | [address] | | + + + + + Care Team Providers + +------+ + | Care Embroidery Worker Name | Role | Phone | [...] | | | | | | | LA | | | | | | | ARTHRODESIS | | | | | | | ANT | | | | | | | INTERBODY | | | | | | | INC | | | | | | | DISCECTOMY, | | | | | | | CERVICAL | | | | | | | BELOW C2 LA | | | | | | | ARTHRODESIS | | | | | | | ANT | | | | | | | INTERBODY | | | | | | | INC | | | | | | | DISCECTOMY, | | | | | | | CERVICAL | | | | | | | BELOW C2 LA | | | | | | | [...] | | | | | | | LA ALLOGRAFT | | | | | | [...] | | | | | | SEGMENTS LA | | | | | | | INSJ | | | | | | | BIOMCHN DEV | | | | | | | INTERVERTEBR | | | | | | | AL DSC SPC | | | | | | | W/ARTHRD LA | | | | | | | INSJ | | | | | | | BIOMCHN DEV | | | | | | | INTERVERTEBR | | | | | | | AL DSC SPC | | | | | | | W/ARTHRD LA | | | | | | | INSJ | | | | | | | BIOMCHN DEV | | | | | | | INTERVERTEBR | | | | | | | AL DSC SPC | | | | | | | W/ARTHRD LA | | | | | | | [...] | | | | | | SEGMENTS LA | | | | | | | [...] + + | 12/09/ | Hospital | [facility] | Eagle Pacheco MD | | | 2018 | Encounter | MED CTR XRAY [address] | [address] | | | | | [place] | [address] [place], [place] | | | | | [place] [address] | [address] | | | | | [phone] | | | +--------+ + + + [...] [place] | | | | | | [address] | | | | | | | [...]
--- OUTSIDE RECORDS SUMMARY | ~2018-02-07 | XMS | Clinical Summary ---
Demographics + + + | Address | [address] | | | [place] [address] | + + + | Home Phone | | + + + | Preferred Language | Unknown | + + + | Marital Status | | + + + | Restoration Affiliation | 1041 | + + + | Race | Unknown | + + + | Ethnic Group | Unknown | + + + Author + + + | Author | [facility] | + + + | Organization | [facility] | + + + | Address | Unknown | + + + | Phone | Unavailable | + + + Support + + + + + | Name | Relationship | Address | Phone | + + + + + | Xochitl Gomez | ECON | [address] | | | | | [place], [place] | | | | | [address] | | + + + + + | Detailed,Message | ECON | Unknown | | + + + + + Care Team Providers + +------+ + | Care Larry Operator Name | Role | Phone | [...] - [place] [facility] | L&I - | [phone] | | | | | | [place] | | | | | | | [facility] | | | | | + +--------+ +------+-------+ + | MEDICARE | MEDICA | [id number] | | | [address] | | | RE | | | | [place] [address] | | | IP-OP | | | [...] | 8 | +- | [place] [address] | | | jayla | | | [address] | | + +--------+ +--------+ + + | 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
--- OUTSIDE RECORDS SUMMARY | ~2018-02-07 | XMS | Encounter Summary ---
Demographics + + + | Address | [address] | | | [place] [address] | + + + | Home Phone [...] + | Author | [facility] | | | and [place] | + + + | Organization | [facility] [...] [place] | | | | | [address] | | + + + + + Care Team Providers + +------+ + | Care Brain Surgeon Name | Role | Phone | + [...] [address] | [address] [place], [place] | | | | | [place], [place] | [address] | | | | | [address] | | | | | | [phone] | | | +--------+ + + + [...] | Visit | | [address] [facility] | | | | | | [address] | | | | | | [address] | | | | | | | | +--------+---------+ + + + as of this encounter Visit Diagnoses Not on filein this encounter"
--- OUTSIDE RECORDS SUMMARY | ~2018-02-07 | XMS | Encounter Summary ---
Demographics + + + | Address | [address] | | | [place] [address] | + + + | Home Phone | | + + + | Preferred Language | Unknown | + + + | Marital Status | | + + + | Latter Day Affiliation | Unknown | + + + | Race | Unknown | + + + | Ethnic Group | Unknown | + + + Author + + + | Author | [facility] | | | and [place] | + + + | Organization | [facility] | | | and [place] | [...] [place] | | | | | [address] | | + + + + + Care Team Providers + +------+ + | Care Parts Specialist Name | Role | Phone | + [...] [place], [place] | | | | | [place], [place] | [address] | | | | | [address] | | | | | | [phone] | | | +--------+ + + + [...] 2017 | Visit | | [address] [facility] | | | | | | [address] | | | | | | [address] | | | | | | | | +--------+---------+ + + + as of this encounter Visit Diagnoses Not on filein this encounter"
--- OUTSIDE RECORDS SUMMARY | ~2018-02-07 | XMS | Encounter Summary ---
Demographics + + + | Address | [address] | | | [place] [address] | + + + | Home Phone | | + + + | Preferred Language | Unknown | + + + | Marital Status | | + + + | Shinto Affiliation | Unknown | + + + | Race | Unknown | + + + | Ethnic Group | Unknown | + + + Author + + + | Author | [facility] | | | and [place] | + + + | Organization | [facility] | | | and [place] | [...] [place] | | | | | [address] | | + + + + + Care Team Providers + +------+ + | Care Wet Process Head Miller Name | Role | Phone | + [...] [place], [place] | | | | | [place], [place] | [address] | | | | | [address] | | | | | | [phone] | | | +--------+ + + + [...] 2018 | Visit | | [address] [facility] | | | | | | [address] | | | | | | [address] | | | | | | | | +--------+---------+ + + + as of this encounter Visit Diagnoses Not on filein this encounter"
--- OUTSIDE RECORDS SUMMARY | ~2018-02-07 | XMS | Clinical Summary ---
Demographics + + + | Address | [address] | | | [place] [address] | + + + | Home Phone [...] + + | Author | [facility] | | | and [place] | + + + | Organization | [facility] | | | and [...] [place] | | | | | [address] | | + + + + + Care Team Providers + +------+ + | Care Senior Climate Advisor Name | Role | Phone | + [...] + | 01/06/ | Hospital | | Eagle Pacheco MD | Cervical [...] | | | Number: | | | [phone] | | | Date of | | [...] | | 2017 | Changes | | Engineering Design Supervisor | | +--------+ +---+ + + from [...] | Visit | | [address] [facility] | | | | | | [address] [place] [place] | | | | | | [phone] | | | | | | | [...] + +--------+--------+ +--------+--------+--------+ | Cage Lynn Ptc [id number] - | Generi | N/A: | [employer] - | | 11/17/ | [id number] | | Sn/AImplanted: Qty: 2 on | c | Spine | MEDT | | 2025 | /N/A | | 12/09/2017 by Eagle Pacheco, | | Cervic | | | | /[id number] | | MD | | al | | | | | + +--------+--------+ +--------+--------+--------+ | Cage Lynn Ptc [id number] - | Generi | N/A: | [employer] - | | 10/20/ | [id number] | | Sn/AImplanted: Qty: 1 on | [...] N/A: | [employer] - | | | [id number] | | - Sn/AImplanted: Qty: 1 on | c | Spine | MEDT | | | /N/A | | 12/09/2017 by Eagle Pacheco, | | Radhika | | | | /N/A | | MD | | al | | | | | + +--------+--------+ +--------+--------+--------+ | Vicenta Clark Pls 1cc Aseptic | Graft | N/A: | [employer] - | | 04/02/ | [id number] | | - [id number]: Qty: | | Spine | MEDT | [...] | [employer] - | | 06/09/ | [id number] | | - [id number]: Qty: | | Spine | MEDT | [...] N/A: | [employer] - | | | [id number] | | - Sn/AImplanted: Qty: 1 on | | Spine | MEDT | | | 5 /N/A | | 12/09/2017 by Eagle Pacheco, | | Cervic | | | | /N/A | | MD | | al | | | | | + +--------+--------+ +--------+--------+--------+ | Screw D-Thrd Slf-Drl 4.0x17mm | Screw | N/A: | [employer] - | | | [id number] | | - Sn/AImplanted: Qty: 5 on | | Spine | MEDT | | | 7 /N/A | | 12/09/2017 by Eagle Pacheco, | | Cervic | | | | /N/A | | MD | | al | | | | | + +--------+--------+ +--------+--------+--------+ | Screw D-Thrd Slf-Drl 3.5x17mm | Screw | N/A: | [employer] - | | | [id number] | | - Sn/AImplanted: Qty: 4 on | | Spine | MEDT | | | 7 /N/A | | 12/09/2017 by Eagle Pacheco, | | Radhika | | | | /N/A | | | | al | | | | | + +--------+--------+ +--------+--------+--------+ | Stent Uret W/Pstnr Frm 6 | Stent | Right: | GENE MILLS | | 06/30/ | [id number] | | - [id number]: | | | INCORPORATE | | 2020 | / | | Qty: 1 on 09/02/2017 by | | Ureter | D | | | /[id number] | | French Mayberry MD | | | | | | 85 | + +--------+--------+ +--------+--------+--------+ | Stent Uret W/Pstnr Frm 6 | Stent | Left: | [place]ENE [place]ILLS | | 06/30/ | [id number] | | - [id number]: | | Ureter | INCORPORATE | | 202 | / | | Qty: 1 on 09/02/2017 by | | | D | | | /[id number] | | French Mayberry MD | | | | | | 85 | + +--------+--------+ +--------+--------+--------+ | Stent Uret W/Pstnr Frm 6 | Stent | | GENE [place]S | | 06/25/ | [id number] | | - [id number]: | | | INCORPORATE | | 2020 | / | | Qty: 1 on 09/15/2017 by | | | D | | | /[id number] | | French Mayberry MD | | [...] + [place] Ivelisse Ceballos No [place] (12/09/2017 4628) + + + | Narrative | Performed [...] [address] [place] | | | | | [facility] | | | | | CENTER - | | | | | LABORATORY | + +---------+ + + + + | Specimen | + + | Blood | + + + + + + + | Performing | Address | City/State/Zipcode | Phone Number | | Organization | | | | + + + + + | [facility] | [address] | [place], [place] | [phone] | | [facility] | | [address] | | | - LABORATORY | | | | + + + + + | [facility] | [address] | [place], [place] | | | [facility] | | [address] | | | - LABORATORY | | [...] | | | | MORGAN GARNER MD ([id number]) | | | | | on 12/02/2017 [...] ST. | | | Staphylococcus | | [facility] | | | | | CENTER - [...] [address] | [place] | [phone] | | [facility] | | [address] | | | - LABORATORY | | | | + + + + + | [facility] | [address] | [place] | | | [facility] | | [address] | | | - LABORATORY | | | | + + + + + CBC with Differential (12/01/2017 1455) + + + + + | Component | Value | Ref Range | Performed At | + + + + + | WBC | 6.0 | 4.0 - 11.0 K/uL | [facility] | | | | | [facility] | | | | | CENTER - | | | | | LABORATORY | + + + + + | RBC | 4.51 | 4.30 - 5.70 M/uL | [facility] | | | | | [facility] | | | | | CENTER - [...] [address] | | | | | [facility] | | | | | CENTER - [...] [address] | [place] | [phone] | | [facility] | | [address] | | | - LABORATORY | | | | + + + + + | [facility] | [address] | [place] | | | [facility] | | [address] | | | - LABORATORY | | | | + + + + + Basic Metabolic Panel (12/01/2017 1457) + + + + + | Component | Value | Ref Range | Performed At | + + + + + | NA | 138 | 136 - 149 mmol/L | [facility] | | | | | [facility] | | | | | CENTER - | | | | | LABORATORY | + + + + + | K | 3.2 (L) | 3.5 - 5.1 mmol/L | [facility] | | | | | [facility] | | | | | CENTER - | | | | | LABORATORY | + + + + + | CL | 98 | 98 - 109 mmol/L | [facility] | | | | | [facility] | | | | | [...] [facility] | | | | | [facility] | | | | | CENTER - | | | | | LABORATORY | + + + + + | BUN | 11 | 7 - 18 mg/dL | [facility]. | | | | | [facility] | | | | | CENTER - | | | | | LABORATORY | + + + + + | Creatinine, | 0.98 | 0.60 - 1.30 mg/dL | [facility]. | | Serum/Plasma | | | [facility] | | | | | CENTER - | | | | | LABORATORY | + + + + + | eGFR if not | >60Comment: GLOMERULAR | >=60 mL/min/1.73m2 | [facility]. | | CUBAN | FILTRATION | | [facility] | | | RATE,ESTIMATED mL/min | | CENTER - | | | /1.44m7Bunq than 60 | | LABORATORY | | [...] + | [facility] | [address] | [place], [place] | [phone] | | [facility] | | [address] | | | - LABORATORY | | | | + + + + + | [facility] | [address] | [place], [place] | | | [facility] | | [address] | | | - LABORATORY | | [...] +---------+ | [employer] | SAIF | [id number] | Indemn | [phone]- | | | | WC | | ity | 8525 | | + +--------+ +--------+ +---------+ | MEDICARE | MEDICA | [id number] | Medica | +1- | | | | RE | | re | [phone] | | | | PART A | | | | | | | AND B | | | | | + +--------+ +--------+ +---------+ | [employer] | [employer] | [id number] | PPO | [phone] | | | | PPO | | [...] | 1940 | +- | [place] [address] | | | jayla | | | [address] | | + +--------+ +--------+ + + | [id number] | Worker | Self | [birth year] | Work: | [address] | | [employer] | s Comp | | 1939 | [phone]- | [place] [address] | | | | | | [address] Home: | | | | | | | | | | | | | | +- | | | | | | | [address]20 | | + +--------+ +--------+ + +
--- OUTSIDE RECORDS SUMMARY | ~2018-02-07 | XMS | Encounter Summary ---
Demographics + + + | Address | [address] | | | [place] [address] | + + + | Home Phone | | + + + | Preferred Language | Unknown | + + + | Marital Status | | + + + | Scientology Affiliation | Unknown | + + + | Race | Unknown | + + + | Ethnic Group | Unknown | + + + Author + + + | Author | [facility] | | | and [place] | + + + | Organization | [facility] | | | and [...] [place] | | | | | [address] | | + + + + + Care Team Providers + +------+ + | Care Senior Net Developer Name | Role | Phone | + [...] + + | 01/06/ | Office | [facility] [place] | Tyesha Jalloh | Status post cervical | | 2018 | Visit | NEUROSURGERY [address] | [address]ARINDER [address] | spinal fusion | | | | [address] | [place], | (Primary Dx) | | | | [place], [place] | [place] [address] | | | | | [address] | [phone] | | | | | [phone] | | | +--------+---------+ + + + [...] your back and 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 in this encounter Progress Notes Tyesha Jalloh PA-C - 01/06/2018 1100 PDTFormatting of this note may be different f rom the original. Jemima Jalloh PA-C [address] [facility], [address] [place] [address] FAX: NEUROSURGERY FOLLOW-UP CHIEF COMPLAINT: Chief Complaint Patient presents with Post Op 4w PO HISTORY OF PRESENT ILLNESS: The patient is a 77 y.o. male that had a cervical fusion for n amrcia pain around 4 weeks ago. He returns [...] Past Medical History: Diagnosis Date Crohn's disease ([facility]) 1961 DDD (degenerative disc disease), lumbar Dyspnea Facet arthropathy, lumbar ([facility]) Fatigue Impacted cerumen Internal derangement of knee [...] Hardware Revision; Surgeon: Eagle Pacheco MD; Location: [facility] MAIN OR HERNIA REPAIR Right 2012 INTRACAPSULAR CATARACT EXTRACTION Left 05/25/2009 KIDNEY STONE SURGERY 07/2012 LUMBAR DISCECTOMY 05/2008 L4/5 Paramedain and foraminal, /Juancarlos NEPHROSTOMY Left 09/02/2017 Procedure: Left Percutaneous Nephrolithotomy, Placement of stent bilateral ureters; Surge on: French Mayberry MD; Location: [facility] MAIN OR SHOULDER SURGERY Left 01/2013 TONSILLECTOMY AND ADENOIDECTOMY URETEROSCOPY Right 09/15/2017 Procedure: Right Ureteroscopy, Laser Lithotripsy & Stent; Surgeon: French Mayberry MD; Location: [facility] MAIN OR CURRENT MEDICATIONS: Current Outpatient [...] Past Medical History: Diagnosis Date Crohn's disease ([facility]) 1961 DDD (degenerative disc disease), lumbar Dyspnea Facet arthropathy, lumbar ([facility]) Fatigue Impacted cerumen Internal derangement of knee [...] and to advance with therapy as tolerated. 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
--- OUTSIDE RECORDS SUMMARY | ~2018-02-07 | XMS | Encounter Summary ---
Demographics + + + | Address | [address] | | | [place] [address] | + + + | Home Phone | | + + + | Preferred Language | Unknown | + + + | Marital Status | | + + + | Hinduism Affiliation | Unknown | + + + | Race | Unknown | + + + | Ethnic Group | Unknown | + + + Author + + + | Author | [facility] | | | and [place] | + + + | Organization | [facility] | | | and [...] [place], [place] | | | | | [address] | | + + + + + Care Team Providers + +------+ + | Care Tso Name | Role | Phone | + [...] [place] | | | | | | [address] | | | | | | [phone] | | | +--------+ + + + [...] 2018 | Visit | | [address] [facility] | | | | | | [address] [place] | | | | | | [address] | | | | | | | | +--------+---------+ + + + as of this encounter Visit Diagnoses Not on filein this encounter"
[~2018-02-07 08:53] MED LIST changes: +ELIQUIS5 MG PO
== END 2018-02-07 10:28 | disposition home or self-care (01) ==
LOC: ED 08:53
DX: M54.6 Pain in thoracic spine (principal); Z79.899 Other long term (current) drug therapy
CPT/HCPCS: 71046; 99283

== ENCOUNTER 2018-11-18 15:19 | Inpatient (IN) | payer MEDICARE, OTHER ==
[~2018-11-18] VITALS: Ht 180.3 cm; Wt 73.1 kg
--- OUTSIDE RECORDS SUMMARY | 2018-11-18 15:22 | XMS ---
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 Zain VISIT COUNT (12 MO.) Renzo Wilkins TOTAL 4 NOTE: Visits indicate total known visits. ED/UCC VISIT TRACKING (12 MO.) 11/18/2018 15:20 [facility] TYPE: Emergency COMPLAINT: - ABD PAIN 02/07/2018 08:53 [facility] TYPE: Emergency COMPLAINT: - RIB PAIN/NON INJURY DIAGNOSES: - Pain in thoracic spine - Other half-way (current) drug therapy 12/29/2017 14:00 [facility] TYPE: Emergency COMPLAINT: - SOB/PAIN BEHIND L KNEE DIAGNOSES: - USP (current) use of systemic steroids - Other half-way (current) drug therapy - USP (current) use of opiate analgesic - Pain in left knee - Acute embolism and thrombosis of left femoral vein 11/24/2017 10:14 [facility] TYPE: Emergency COMPLAINT: - CONSTIPATION INPATIENT VISIT TRACKING (12 MO.) [facility] DIAGNOSES: - Other intervertebral disc displacement, lumbar region [facility] DIAGNOSES: - Cervical spondylosis with myelopathy (M47.12), Neuropathy (G62.9), History of fusion of cervical spine (Z98.1), Cervical spinal stenosis (M48.02) 11/24/2017 14:[address] [facility] TYPE: Medical Surgical COMPLAINT: - SBO DIAGNOSES: - Essential (primary) hypertension - Personal history of urinary calculi - Unspecified intestinal obstruction, unspecified as to partial versus complete obstruction - USP (current) use of non-steroidal anti-inflammatories (NSAID) - Unspecified injury of nose, initial encounter - Other mechanical complication of other gastrointestinal prosthetic devices, implants and grafts, initial encounter - Crohn's disease of small intestine with intestinal obstruction - Other half-way (current) drug therapy - Restless legs syndrome [email or web address]
[2018-11-18] MEDS ORDERED: HYDROCODON-ACE1 EAC8 PO (15:33)
[2018-11-18] MEDS ORDERED: MELOXICAM15 MG PO (15:34)
[2018-11-18] MEDS ORDERED: LISINOPRIL10 MG PO (15:34)
--- NOTE | 2018-11-18 17:35 | NUR ---
REPORT RECEIVED FROM MAYCO HALL VIA TELEPHONE.
--- NOTE | 2018-11-18 17:51 | NUR ---
PT ARRIVED TO FLOOR VIA STRETCHER, ABLE TO TRANSFER TO BED WITH SBA. REPORTS PAIN 4/10 IN ABDOMEN. BOWEL TONES HYPOACTIVE, TENDER AND MILDLY DISTENDED. PT REPORTS SMALL BM YESTERDAY BUT STATES "IT WAS SO SMALL THAT I WOULDNT COUNT IT A BM". PT WITH NO NAUSEA AT THIS TIME. NS AT 125 STARTED. HEART SOUNDS REGULAR. LUNGS CLEAR. SCD'S IN PLACE. CALL LIGHT IN REACH. DENIES FURTHER NEEDS.
--- NOTE | 2018-11-18 18:56 | NUR ---
DR CLAYTON I NTO SEE PT. PLAN OF CARE DISCUSSED. QUESTIONS AND CONCERNS ADRESSED.
--- NOTE | 2018-11-18 19:56 | NUR ---
REPORT RECEIVED, PT RESTING IN BED, IV FLUIDS INFUSING PER EMAR WNL, NO REQUESTS AT THIS TIME, FAMILY AT BEDSIDE, CALL LIGHT WITHIN REACH.
--- NOTE | 2018-11-18 21:28 | NUR ---
VITALS AND I&OS DONE AND CHARTED. INFORMED ISABEL GORMAN OF TEMP. BEDSIDE TABLE AND CALL LIGHT IN REACH.
--- NOTE | 2018-11-18 21:30 | NUR ---
ASSESSMENT COMPLETE, PT AOX4, APPROPRIATE, ABDOMEN REMAINS DISTENDED, TENDER TO TOUCH, BT ARE ACTIVE, PT DENIES PASSING OF FLATUS, IV FLUIDS INFUSING PER EMAR WNL, EVENING MEDS ADMINISTERED PER EMAR, PT C/O 12/01 PAIN RELATED TO ABDOMEN, PRN MORPHINE GIVEN, SEE EMAR. SCD'S ON, PT NPO, TOLERATING WELL. NO FURTHER NEEDS AT THIS TIME, CALL LIGHT WITHIN REACH.
--- NOTE | 2018-11-18 22:20 | NUR ---
RECHECKED TEMP PER ISABEL GORMAN.
--- NOTE | 2018-11-18 23:45 | NUR ---
CHARGE NURSE ROUNDING NOTE: RESTING, IVF INFUSING, SCDS INPLACE. CALL LIGHT AND FLUIDS AT BEDSIDE.
--- NOTE | 2018-11-19 01:29 | NUR ---
PT RESTING IN BED, EYES CLOSED, BREATHS EVEN, UNLABORED, NO REQUESTS AT THIS TIME, CALL LIGHT WITHIN REACH. IV FLUIDS INFUSING PER EMAR WNL.
--- NOTE | 2018-11-19 02:02 | NUR ---
VITALS AND I&OS DONE AND CHARTED. CLEANED UP THE FLOOR WITH RED WIPES DUE TO URINE ON THE FLOOR. NEW GOWN GIVEN. BEDSIDE TABLE AND CALL LIGHT IN REACH.
--- NOTE | 2018-11-19 02:54 | NUR ---
PT UP TO BATHROOM, PT INCONTINENT OF VOID, BEDDING AND BOTTOMS CHANGED, PT BACK TO BED, IV FLUIDS INFUSING PER EMAR WNL, PT C/O 12/01 PAIN, PRN PAIN MEDICATION GIVEN PER EMAR. NO FURTHER NEEDS AT THIS TIME, CALL LIGHT WITHIN REACH.
--- NOTE | 2018-11-19 04:46 | NUR ---
PT AOX4, APPROPRIATE, PT NPO, PT RECEIVED PRN PAIN MEDICATION X2 THIS SHIFT RELATED TO ABDOMINAL PAIN, IV FLUIDS INFUSED PER EMAR WNL, SCD'S ON, PT HAS NOT HAD ANY C/O NAUSEA THIS SHIFT, ABDOMEN REMAINS DISTENDED BUT BT ACTIVE, NO BM THIS SHIFT, UO QS, PT USES CALL LIGHT APPROPRIATELY, 1 PERSON SBA. VSS.
--- NOTE | 2018-11-19 06:09 | NUR ---
PT AWAKE THIS MORNING RESTING IN BED, PT STATES THAT HE FEELS HE IS FEELING BETTER, ABDOMEN NOTED TO BE LESS FIRM, LESS TENDER TO THE TOUCH, PT C/O 5/10 PAIN IN ABDOMEN, PRN KETOROLAC GIVEN PER EMAR, IV FLUIDS INFUSING PER EMAR WNL, VSS, SCD'S ON, NO REQEUSTS AT THIS TIME, CALL LIGHT WITHIN REACH. PT DENIES ANY PASSING OF FLATUS BUT BT REMAIN ACTIVE.
--- NOTE | 2018-11-19 07:32 | NUR ---
REPORT RECEIVED FROM CONFERENCE CENTER MANAGER RN. PT IN BED WITH EYES CLOSED. RESPIRATIONS EQUAL ANDNONLABORED. D5LR AT 125. SCD'S IN PLACE. CALL LIGHT IN REACH.
--- NOTE | 2018-11-19 07:55 | NUR ---
PATIENT SITTING UP IN CHAIR. SETS UP BATHROOM FOR SHOWER. CALL LIGHT WITHIN REACH. NO OTHER NEEDS AT THIS TIME
--- NOTE | 2018-11-19 09:26 | NUR ---
PATIENT RESTING IN BED. VITAL SIGNS AND I&O DONE. IV WRAPPED. PATIENT IS GOIG TO TAKE A SHOWER. CALL LIGHT WITHIN REACH. NO OTHER NEEDS AT THIS TIME
--- NOTE | 2018-11-19 09:48 | NUR ---
PT UP TO SHOWER INDEPENDENLY. REPORTS FEELING "MUCH BETTER TODAY". DENIES PAIN, NAUSEA OR VOMITTING. SL FOR SHOWER.
--- NOTE | 2018-11-19 10:06 | NUR ---
ASSESSMENT DONE. BOWEL TONES HYPOACTIVE, PT DENEIS PASSING FLATUS, REPORTS SOME BELCHING, NO NAUSEA/VOMITTING, PAIN IS TOLERABLE WITH OUT MEDICATIONS. LUNGS CLEAR, HEART SOUNDS REGULAR, DENIES NUMBNESS OR TINGLING IN EXTERMITIES, PT IS AAO X3.
--- NOTE | 2018-11-19 12:00 | NUR ---
PT IN BED WITH EYES CLOSED. RESPIRATIONS EQUAL ADN NONLABORED. CALL LIGHT IN REACH.
--- NOTE | 2018-11-19 13:27 | NUR ---
PATIENT RESTING IN BED. VITAL SIGNS AND I&O DONE. PATIENT DID NOT VOID DURING THIS PERIOD. RN NOTIFIED. CALL LIGHT WITHIN REACH. NO OTHER NEEDS AT THIS TIME
--- NOTE | 2018-11-19 14:14 | NUR ---
PT SITTING UP IN CHAIR WATCHING TV PT REPORTS ELEVATED PAIN LEVEL. PT REQUESTS AND RECEIVED PRN IV opiod and toradol. Pt states he still feels firm to his abdomen. Assessment completed. Pt denies nausea and agrees to ambulate as tolerable.
--- NOTE | 2018-11-19 14:30 | NUR ---
PATIENT AMBULATING IN HALLWAY
--- NOTE | 2018-11-19 15:35 | HP ---
[facility] [address], [place] [address] Signed ADMISSION DATE: 11/18/2018 REASON FOR ADMISSION: Recurrent bowel obstruction, history of Crohn disease, prior "Eisenhower operation." HISTORY: This 78-year-old white man is known to me from the past. He was discharged in November a year ago, having had suffered a small-bowel obstruction, thought related to recurrent Crohn disease. 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 This is considered an enterocolostomy without resection of the ileum. He has had episodes of abdominal obstruction more or less since that time from time to time. He takes no dedicated medication for Crohn disease given his advanced age of 78 years. He was admitted between November 24, in November 27, 2017, for this bowel obstruction problem which resolved with conservative measures. He was treated with mesalamine upon discharge. His most recent episode began with abdominal distention and vague abdominal pain about 2-3 days ago. He acknowledged that he was having symptoms suggestive of recurrent obstruction, and on that basis, tapered his diet. Today, he really did not eat anything. He presented to the emergency room with abdominal distention, evaluated by Dr. Veras, noting he had minimal with any passage of flatus. Nausea, but no vomiting and diffuse abdominal pain with distention. He was noted to no longer be on mesalamine, which he had been taking previously. Abdominal CT scan was performed, which showed findings consistent with small bowel obstruction and a hydropic gallbladder without evidence of cholecystitis. The patient has had no epigastric or subcostal pain that we are aware of. It is notable that the patient had a nasogastric tube attempted to be passed on his previous hospitalization, which resulted in a knot in the end of it requiring its removal and was not replaced, but he did have resolution of his obstruction without replacement or attempted replacement of nasogastric tube. PAST MEDICAL HISTORY: Includes hypertension as well as restless legs syndrome. He has history of Crohn disease as well. He has undergone rotator cuff repair on the left side and bilateral inguinal hernia as well as appendectomy and lithotripsy with stone retrieval in the past. MEDICATIONS: His current medications include Pepcid 20 mg b.i.d., and Eliquis 5 mg p.o. daily. Electronically Signed By: AGUILAR CLAYTON MD 11/19/18 1535 PATIENT NAME: MORGAN FRANZ HISTORY AND PHYSICAL DATE OF : 36 REPORT #: [id number] PHYSICIAN: AGUILAR CLAYTON MD PCP: JUAN LILLY MD REPORT IS CONFIDENTIAL AND NOT TO BE RELEASED WITHOUT AUTHORIZATION [facility] [address], [place] [address] Signed Additionally, he takes [place], meloxicam, lisinopril, ferrous gluconate, carbidopa/levodopa 10/100, tamsulosin, pramipexole, and Tylenol. REVIEW OF SYSTEMS: He denies any shortness of breath or chest pain. Does not have severe abdominal pain, only distention and feeling of bloating. PHYSICAL EXAMINATION: GENERAL: Pleasant white man who is accompanied by his . He has since I last saw him grown a rather vigorous white phillips. NECK: His trachea is midline. There is no carotid bruit. CHEST: Clear without wheeze or rhonchi. He does not have tachypnea. HEART: Irregular. ABDOMEN: Distended. It is mildly tender, but not with focal tenderness. Midline incision is noted. EXTREMITIES: Show no clubbing, cyanosis, or edema. LABORATORY STUDIES: Show white count 6.7, hematocrit of 46.5, platelets 294,000. Electrolytes normal except for creatinine elevated at 1.17. Urinalysis is essentially normal. There are five white cells per high-power field. Bilirubin is 0.9, albumin is 4.3. His imaging studies were reviewed, which showed distended loops of bowel. The gallbladder is distended, but does not look thickened. The spleen is normal to small in size. The stomach does not appear massively dilated, indeed it appears contracted. ASSESSMENT AND PLAN: He has recurrent small-bowel obstruction which is likely incomplete. Whether it is related to Crohn disease, in fact, that his advanced age of 78 years or not is uncertain. Adhesion could be a source of obstruction of course. The terminal ileum, which remains in situ or even the ileo right colonic anastomosis could be a sort of source of problem. Review of our imaging studies for the past 3 years does not show a small-bowel follow-through only abdominal CT scanning. For now, we will hold off on the nasogastric tube, but he should remain n.p.o. except for a few ice chips for comfort. Fluid resuscitation will be administered. DVT prophylaxis maintained and likely tomorrow, a surgeon small-bowel follow-through will be undertaken. Aguilar Clayton MD Electronically Signed By: AGUILAR CLAYTON MD 11/19/18 1535 PATIENT NAME: MORGAN FRANZ HISTORY AND PHYSICAL DATE OF : 36 REPORT #: [id number] PHYSICIAN: AGUILAR CLAYTON MD PCP: JUAN LILLY MD REPORT IS CONFIDENTIAL AND NOT TO BE RELEASED WITHOUT AUTHORIZATION [facility] [address] [place] [address] Signed /ASIF /[id number] cc: Dr. Rito Lilly MD Copies: ~ Electronically Signed By: AGUILAR CLAYTON MD 11/19/18 1535 PATIENT NAME: MORGAN FRANZ HISTORY AND PHYSICAL DATE OF : 36 REPORT #: [id number] PHYSICIAN: AGUILAR CLAYTON MD PCP: JUAN LILLY MD REPORT IS CONFIDENTIAL AND NOT TO BE RELEASED WITHOUT AUTHORIZATION
[2018-11-19] MEDS ORDERED: MIRAPEX0.25 MG PO (16:38)
--- NOTE | 2018-11-19 17:32 | NUR ---
PT UP TO RESTROOM, SPILT URINAL ON FLOOR. PT ASSISTED IN CLEANING UP AND BACK TO CHAIR. CALL LIGHT AND ICE CHIPS IN REACH. PT NOW VISITING WITH FAMILY AT BEDSIDE AND DENIES FURTHER NEEDS/CONCERNS.
[2018-11-19] MEDS ORDERED: PEPCID20 MG PO (17:40)
--- NOTE | 2018-11-19 17:40 | NUR ---
PATIENT SITTING UP IN CHAIR. FAMILY IN ROOM. VITAL SIGNS AND I&O DONE. CALL LIGHT WITHIN REACH. NO OTHER NEEDS AT THIS TIME
--- NOTE | 2018-11-19 17:42 | NUR ---
MED REC COMPLETE
--- NOTE | 2018-11-19 19:05 | NUR ---
RECIEVED REPORT. PT RESTING. NO REQUESTS AT THIS TIME
--- NOTE | 2018-11-19 20:50 | NUR ---
VITALS AND I&OS DONE AND CHARTED. BEDSIDE TABLE AND CALL LIGHT IN REACH.
--- NOTE | 2018-11-19 23:05 | NUR ---
PT USED CALL LIGHT AND REQUESTED PAIN MEDICAITON. GAVE MORPHINE 2MG TO START
--- NOTE | 2018-11-20 05:44 | NUR ---
VITALS AND I&OS DONE AND CHARTED. GARBAGES EMPTIED. BEDSIDE TABLE AND CALL LIGHT IN REACH. PT NEEDS NOTHING MORE AT THIS TIME.
--- NOTE | 2018-11-20 06:00 | NUR ---
PT RESTED WELL DURRIGN SHIFT. REQUESTED PAIN MEDICAITON ONCE. PT. UP AMBULATING EARLY MORING AROUND NURSES STATION, PT STATED IT FELT GOOD TO GET UP MOVING. BOWLE TONES ACTIVE. LUNG SOUNDS CLEAR. ICE CHIPS GIVEN FOR COMFORT. NPO. KUB ORDRED FOR THIS AM.
--- NOTE | 2018-11-20 07:46 | NUR ---
PT RESTING ON LEFT LATERLA SIDE IN BED, EYES CLOSED BUT PT ALERT TO VOICE AND ORIENTED. CALL LIGHT AND ICE CHIPS IN REACH. PT REPORTS BOUT OF NAUSEA BUT STATES IT HAS SUBSIDED AND DENIES NEED FOR NAUSEA MEDICATION. PT STATES HE DID NOT HAVE ANY EMISIS. BEDSIDE REPORT RECEIVED FROM ISABEL ROACH
--- NOTE | 2018-11-20 09:14 | NUR ---
PATIENT RESTING IN BED. RN IN ROOM. VITAL SIGNS AND I&O DONE. PATIENT DID NOT VOID DURING THIS PERIOD. RN NOTIFIED. CALL LIGHT WITHIN REACH. NO OTHER NEEDS AT THIS TIME
--- NOTE | 2018-11-20 10:20 | NUR ---
PT ASSSITED UP TO AMBULATE AND TOLERATES 2 LAPS AROUND NURSING STATIONS WITH SBA. PT BACK TO BED, ICE CHIPS AND CALL LIGHT IN REACH. PT DENIES FURTHER NEEDS/CONCERNS.
--- NOTE | 2018-11-20 11:00 | NUR ---
PATIENT AMBULATING IN THE FERRIS
--- NOTE | 2018-11-20 11:35 | NUR ---
PATIENT REFUSED TO TAKE A SHOWER TODAY BECAUSE HE TOOK A SHOWER YESTERDAY
--- NOTE | 2018-11-20 12:37 | NUR ---
PATIENT SITTING UP ON THE EDGE OF THE BED WATCHING TV. VITAL SIGNS AND I&O DONE. CALL LIGHT WITHIN REACH. NO OTHER NEEDS AT THIS TIME
--- NOTE | 2018-11-20 14:00 | NUR ---
PT RESTING SUPINE IN BED WATCHING TV PT STATES HE HAS BEEN PASSING SOME GAS AND DENIES NAUSEA OR PAIN. BT'S ACTIVE IN ALL QUADRANTS. ASSESSMENT COMPLETED. CALL LIGHT AND H2O IN REACH. PT DENIES FURTHER NEEDS/CONCERNS.
--- NOTE | 2018-11-20 15:00 | NUR ---
PT UP AMBULATING IN FERRIS WITH SBA AND STEADY GAIT. PT BACK TO BED, DENIES NAUSEA OR PAIN AND IS TOLERATING CLEAR LIQUIDS. CALL LIGHT AND H2O IN REACH.
--- NOTE | 2018-11-20 16:15 | NUR ---
CALL LIGHT ANSWERED. PATIENT ASKS FOR PAIN MEDICINE. RN NOTIFIED. GOWN AND ADULT PULL UP CHANGED. CALL LIGHT WITHIN REACH. NO OTHER NEEDS AT THIS TIME
--- NOTE | 2018-11-20 16:57 | NUR ---
PATIENT RESTING IN BED. VITAL SIGNS AND I&O DONE. CALL LIGHT WITHIN REACH. NO OTHER NEEDS AT THIS TIME
--- NOTE | 2018-11-20 17:50 | NUR ---
PT RESTING IN SEMI FOWLERS POSITION IN BED WATCHING TV. PT STATES HE TOLERATED HIS CLEAR LIQUID DIET WELL WITH NO NAUSEA OR PAIN. PM MEDS ADMINISTERED. CALL LIGHT AND H2O IN REACH. PT DENIES FURTHER NEEDS/CONCERNS.
--- NOTE | 2018-11-20 19:30 | NUR ---
RECIEVED REPORT AT BEDSIDE. PT RESTING WITH EYES CLOSED. NOT REQUETS AT THIS TIME. CALL IGHT IN REACH
--- NOTE | 2018-11-20 22:45 | NUR ---
PT C/O PAIN 12/01 ADMINSITERED TORADOL.
--- NOTE | 2018-11-21 00:44 | NUR ---
PT RESTING IN BED WITH EYES CLSOED. NO REQUEST AT THIS TIME. CALL LIGHT IN REACH.
--- NOTE | 2018-11-21 02:27 | NUR ---
PATIENT'S IV SIE ALARMING. FLUSHED SITE, APPEARS WNL. RESTARTED IV FLUIDS. PATIENT REPORTS PAIN IN HIS ABD BUT NO NAUSEA. PRN MORPHINE PROVIDED PER ORDER. PATIENT ASSISTED TO FIND COMFORTABLE POSITION. DENIES FURTHER NEEDS.
--- NOTE | 2018-11-21 04:27 | NUR ---
PT. IV PUMP ALARMING, ENTERED ROOM TO CORRECT PUMP. PT. C/O PAIN 11/01. ADMINISTERED MEDICAITON. REQUESTING A SHOWING THIS MORINGING AROUND 8AM.
--- NOTE | 2018-11-21 05:38 | NUR ---
PT DISCUSSING THAT HE WAS NOT INTRESTED IN EATING MUCH TODAY HE DID YESTERDAY. PT FEELS LIKE THE STOMACH PAIN HE HAS HAD TONIGHT IS BECAUSE OF OVERFILLING HIS STOMACH WITH JUICE AND JELLO
--- NOTE | 2018-11-21 07:12 | NUR ---
PT RESTING SUPINE IN BED WATCHING TV, STATES HE FEELS BLOATED LIKE HIS STOMACH ISN'T EMPTYING AGAIN. PT STATES HE IS COMFORTABLE. CALL LIGHT AND H2O IN REACH. PT DENIES NEEDS/CONCERNS. BEDSIDE REPORT RECEIVED FROM ISABEL ROACH.
--- NOTE | 2018-11-21 08:01 | NUR ---
PATIENT RESTING IN BED. PATIENT'S BREAKFAST ORDERED. SETS UP BATHROOM FOR SHOWER. CALL LIGHT WITHIN REACH. NO OTHER NEEDS AT THIS TIME
--- NOTE | 2018-11-21 08:35 | NUR ---
PT SITTING UP IN BED WATCHING TV AND EATING CLEAR LIQUID BREAKFAST. ASSESSMENT COMPLETED. PT ALSO WATCHING TV. PT REPORTS 5/10 PAIN TO ABDOMEN AND AGREES TO TAKE FLUIDS SLOWLY. PRN IV MORPHINE ADMINISTERED PER PT REQUEST AND AM MEDS ADMINISTERED -SEE EMAR. CALL LIGHT AND H20 IN REACH. PT DENIES FURTHER NEEDS/CONCERNS.
--- NOTE | 2018-11-21 09:23 | NUR ---
PATIENT RESTING IN BED. VITAL SIGNS AND I&O DONE. CALL LIGHT WITHIN REACH. NO OTHER NEEDS AT THIS TIME
--- NOTE | 2018-11-21 11:41 | NUR ---
PATIENT RESTING IN BED. IV WRAPPED. PATIENT GOES TO TAKE A SHOWER. LINENS CHANGED. CALL LIGHT WITHIN REACH. NO OTHER NEEDS AT THIS TIME
--- NOTE | 2018-11-21 13:11 | NUR ---
PATIENT RESTING IN BED. VITAL SIGNS AND I&O DONE. CALL LIGHT WITHIN REACH. NO OTHER NEEDS AT THIS TIME
--- NOTE | 2018-11-21 13:45 | NUR ---
PT SITTING UP IN CHAIR WATCHING TV, PT ASSESSMENT COMPLETED, PT UP AND AMBULATES TWO LAPS AROUND NURSING STATIONS WITH STEADY GAIT. PT BACK TO BACK TO BED, CALL LIGHT AND H2O IN REACH. NO FURTHER NEEDS/CONCERNS VOICED.
--- NOTE | 2018-11-21 16:09 | NUR ---
PT RESTING IN SEMI FOWLERS POSITION IN BED WATCHING TV. PT REPORTS 6/10 PAIN TO ABDOMEN, DENIES NAUSEA OR SOB. PRN IV MORPHINE ADMINISTERED PER PT REQUEST. CALL LIGHT AND H2O IN REACH. PT DENIES FURTHER NEEDS/CONCERNS.
--- NOTE | 2018-11-21 17:41 | NUR ---
PT UP AMBULATING IN ROOM INDEPENDANTLY, DENIES DIZZINESS, STATES PAIN IS THERE BUT TOLERABLE. NO NAUSEA. PT TOLERATING SMALL SIPS OF FLUIDS BUT FEELS DISTENDED. PM MEDS ADMINISTERED. CALL LIGHT AND CLEAR FLUIDS AT BEDSIDE. PT DENIES NEEDS/CONCERNS.
--- NOTE | 2018-11-21 17:59 | NUR ---
PATIENT AMBULATING IN THE HALLWAY
--- NOTE | 2018-11-21 19:00 | NUR ---
SHIFT REPORT RECEIVED. PATIENT RESTING IN BED. REPORTS GOOD PAIN CONTROL AT THIS TIME AND NO NAUSEA. IV FLUIDS PER ORDER, SITE WNL. DENIES ANY NEEDS. CALL LIGHT IN REACH.
--- NOTE | 2018-11-21 19:30 | NUR ---
IV FLUIDS FINISHED, SITE APPEARS SWOLLEN. DOES NOT FLUSH EASILY OR RETURN BLOOD. REQUEST CHALRY RN TO ASSIST WITH IV SITE, WHICH HE SUCESSFULY PLACE. NEW BAG IV FLUIDS STARTED. PATIENT DENIES FURTHER NEEDS AT THIS POINT. REPORTS TOLERABLE ABD PAIN AT REST.
--- NOTE | 2018-11-21 21:50 | NUR ---
EVENING MEDS PROVIDED PER ORDER. PATIENT REPORTS 7/10 UPPER ABD PAIN. NO NAUSEA. PRN MORPHINE PROVIDED. ABD IS MODERATELY DISTENDED AND FIRM. BOWEL SOUNDS ACTIVE. PATIENT TAKING SMALL SIPS OF CLEARS TODAY BUT REPORTS MINIMAL INTAKE DUE TO PAIN. VS STABLE. PATIENT HAS BEEN FREQUENTLY WALKING IN HALLWAY INDEPENDENTLY. IV FLUIDS PER ORDER, NEW SITE WNL. URINE OUTPUT QS.
--- NOTE | 2018-11-22 00:03 | NUR ---
PATIENT APPEARS TO BE SLEEPING SOUNDLY. RR 18. CALL LIGHT IN REACH.
--- NOTE | 2018-11-22 03:20 | NUR ---
PATIENT UP TO THE BATHROOM. PASSING SOME GAS. REPORTS PAIN 7/10 IN UPPER ABD. PRN MORPHINE AND TORADOL PROVIDED. PATIENT AMBULATING IN THE HALLWAY. SEVERAL LARGE LAPS COMPLETED.
--- NOTE | 2018-11-22 06:24 | NUR ---
PATIENT ABLE TO SLEEP ON AND OFF THIS SHIFT. AMBULATED IN THE HALLWAYS X2. PRN TORADOL AND MORHPINE FOR UPPER ABD PAIN. NO NAUSEA. ABD MODERATELY DISTENDED, BOWEL SOUNDS ACTIVE. PATIENT PASSING GAS. FEELS LIKE HE COULD HAVE A BM THIS AM. LR @125. VS STABLE. URINE OUTPUT QS. TOLERATING SMALL AMOUNT OF CLEARS.
--- NOTE | 2018-11-22 07:20 | NUR ---
HAND OFF REPORT RECEIVED FROM ISABEL ORANTES. PT UP AND AMBULATING IN ROOM AND BATHROOM. PT EXPRESSES 6/10 PAIN AND STATES HE WOULD LIKE PAIN MEDICAITON. PT EXPRESSES NEED TO HAVE BM BUT STATES HE HAS BEEN UNABLE TO DO SO. WILL DELIVER MEDICATION SOON.
--- NOTE | 2018-11-22 07:39 | NUR ---
MORNING ASSESSMENT AND MEDICAITON DUE. PT AMBULATING INDEPENDANTLY IN ROOM, PT STEADY ON FEET. PT CONTINUES TO EXPRESS 6/10 PAIN IN UPPER ABDOMEN. SEE MAR FOR MEDICATION GIVEN, WARM PACK PROVIDED PER PT REQUEST. ASSESSMENT DONE, WILNER TONES ACTIVE IN LOWER QUADRANTS BUT HYPOACTIVE IN UPPER. ABDOMEN FIRM AND MODERATLY DISTENCDED. TECHNICAL SOLUTIONS ENGINEER TO TOUCH. PT ANTICIPATING SMALL BOWEL FOLLOW THROUGH LATER THIS MORNING. EDUCATION DONE, PT VERBALIZES UNDERSTANDING. PT CONTINUES TO STATE HE FEELS LIKE HE NEEDS TO HAVE A BOWEL MOVEMENT BUT HAS BEEN UNABLE TO DO SO. NO ADDITIONAL REQUESTS OR COMPLAINTS. PT SITTING ON EDGE OF BED. CALL LIGHT WITHIN REACH.
--- NOTE | 2018-11-22 08:15 | NUR ---
DEATH SURVEYS CODER INFORMED THIS RN THAT PT "HAS QUESTIONS ABOUT HIS DAY." THIS RN TO ROOM. PT RESTING WITH EYES CLOSED, RESPIRATIONS EVEN AND UNLABORED. PT ALLOWED TO REST AT THIS TIME. WILL CHECK BACK. BED RAILS UP. CALL LIGHT WITHIN REACH.
--- NOTE | 2018-11-22 09:37 | NUR ---
IMAGING CALLED AND IS READY TO TAKE PT FOR STUDY. PT SALINE LOCKED. PT PERFORMING ORAL CARE INDEPENDANTLY. BROTHER AT BEDSIDE FOR VISIT. PT DENIES NEED FOR PAIN MEDICAITON AT THIS TIME. CALL LIGHT WITHIN REACH.
--- NOTE | 2018-11-22 09:42 | NUR ---
IMMAGING TECHNITIAN ARRIVED TO TAKE PT FOR SMALL BOWEL FOLLOW THROUGH STUDY. PT TRANSFERES SELF TO WHEEL CHAIR. NO ADDIITONAL REQUESTS OR COMPLAINTS.
--- NOTE | 2018-11-22 13:35 | NUR ---
PT RETURNED FROM IMAGING, INSTRUCTIONS TO KEEP PT SITTING UPRIGHT, NPO, AND NO NG TUBE AT THIS TIME. PT REPROTS 11/01 PAIN, SEE MAR FOR MEDICATION GIVEN. ASSESSMENT DONE. ABDOMEN CONTINUES TO FEEL "SORE AND TENDER." HYOPACTIVE BOWEL TONES. PT VISITING WITH , ANDRESSA. IMAGING TECHNITIAN ARRIVED TO GIVE PT ADDITONAL CONTRAST. PT DRINKING CONSTRAST. NO ADDITIONAL REQUESTS OR COMPLAINTS. CALL LIGHT WITHIN REACH. WARM BLANKET PROVIDED.
--- NOTE | 2018-11-22 14:15 | NUR ---
IMAGING TECHNITIAN ARRIVED TO TAKE PT TO IMAGING. PT TRANSFERES SELF TO WHEELCHAIR, SBA. NO QUESTIONS OR COMPLAINTS AT THIS TIME.
--- NOTE | 2018-11-22 14:30 | NUR ---
PT RETURNED FROM IMAGING. PT REPORTS 5/10 PAIN AND DENIES NEED FOR ADDITIONAL PAIN MEDICAITON. PT WOULD LIKE SOMETHING TO DRINK. IMAGING CALLED AND STATES THERE ARE STILL MORE IMAGES TO DO AND PT SHOULD REMAIN NPO AT THIS TIME. PT BACK TO BED. VITALS TAKEN. PT NOTED TO BE ELEVATED AT 170'S/80'S. MAUAL BP TAKEN AND FOUND TO BE 164/82. WILL REASSESS AFTER IMAGING. PT RESTING, REMAINS NPO AND SALINE LOCKED. NO ADDITIONAL REQUESTS OR COMPLAINTS AT THIS TIME.
--- NOTE | 2018-11-22 15:21 | NUR ---
IMAGING CALLED AND STATES PT IS FINISHED WITH SMALL BOWEL FOLLOW THROUGH, PT MAY NOW RETURN TO CLEAR LIQUID STATUS. ICE WATER PROVIDED. IV FLUID BOLUS STARTED AND MAINTANCE FLUIS RESUMED. PT BACK TO BED TO REST. PT DENIES ADDITIONAL REQUESTS OR COMPLAINTS. CALL LIGHT WITHIN REACH. BED RAILS UP.
--- NOTE | 2018-11-22 16:11 | NUR ---
PT HERE FOR POSSIBLE SMALL BOWEL OBSTRUCTIONS. PT STEADY ON FEET AND INDEPENDANT IN ROOM TODAY, WALKS TAKEN IN HALLWAY WELL. SMALL BOWEL FOLLOW THROUGH STUDY COMPLETED THIS SHIFT AND PT RETURNED TO CLEAR LIQUID DIET. 500ML LR BOLUS GIVEN FOR LOW URINE OUTPUT, NPO STATUS, AND SALINE LOCK DURING STUDY, MD AWARE. PRN PAIN MEDICATIONS GIVEN FOR 5-6/10 PAIN. PT DENIES NAUSEA THIS SHIFT. PT USES CALL LIGHT APPROPRIATLY.
--- NOTE | 2018-11-22 17:01 | NUR ---
PT REQUESTS HIS "RESTLESS LEG MEDICATIONS." MEDICATIONS GIVEN TO PT. PT SIPPING ON CLEAR LIQUID TRAY ITEMS. PT REPORTS "MY BELLY IS A LITTLE SOFTER." GI ASSESSMENT DONE. ABDOMEN STILL SLIGHTLY FIRM AND DISTENDED. BOWEL TONES HEARD. PT REPORTS "JOSE HAD A LITTLE BIT OF LOOSE BOWEL MOVEMENT TODAY." MEDICATION GIVEN FOR 6/10 PAIN (SEE MAR). PT WATCHING TV. NO REQUESTS OR COMPLAINTS AT THIS TIME. CALL LIGHT WITHIN REACH.
--- NOTE | 2018-11-22 17:28 | NUR ---
VERBAL ORDERS FROM MD TO REPEAT 500ML LR BOLUS A 2ND TIME. PHARMACY NOTIFIED. ORDERS ENTERED.
--- NOTE | 2018-11-22 18:47 | NUR ---
PATIENT IN BED WATCHING TV. FRESH WATER GIVEN. CALL LIGHT IN REACH. NO FURTHER NEEDS AT THIS TIME.
--- NOTE | 2018-11-22 19:59 | NUR ---
RECEIVED REPORT FROM DAY SHIFT RN. PATIENT IS RESTING IN BED WITH EYES CLOSED, RR 17. CALL LIGHT IN REACH.
--- NOTE | 2018-11-22 20:25 | NUR ---
PATIENT ASSESMENT COMPLETED. PATIENTS EVENING MEDICATIONS GIVEN PER ORDER. PATIENT RATES PAIN AT A 6/10 IN HIS "BELLY". PATIENT GIVEN PRN PAIN MEDICATION PER ORDER. PATIENTS VITALS TAKEN AND RECORDED. PATIENT STOD AT THE BEDSIDE AND WAS ABLE TO VOID. PATIENTS INTAKE AND OUTPUT RECORDED. PATIENT DENIES ANY NAUSEA. PATIENT IS PASSING GAS. ACTIVE BOWEL TONES NOTED. PATIENT DENIES ANY FURTHER NEEDS. CALL LIGHT IN REACH.
--- NOTE | 2018-11-22 22:21 | NUR ---
PATIENT IS RESTING IN BED. PATIENT PROVIDED WITH ATTENDS AND WIPES. PATIENT STATED "THAT CONTRAST IS JUST LEAKING OUT OF ME". PATIENT RATES PAIN AT A 2/10. PATIENT DENIES THE NEED FOR PAIN MEDICATION. PATIENT DENIES ANY NAUSEA. NO FURTHER NEEDS. NOTED. CALL LIGHT IN REACH.
--- NOTE | 2018-11-23 00:06 | NUR ---
PATIENT IS RESTING IN BED WITH EYES CLOSED, RR 17. CALL LIGHT IN REACH.
--- NOTE | 2018-11-23 03:02 | NUR ---
PATIENT CALLED TO REQUEST ASSISTANCE WITH A SHOWER. PATIENT WAS INCONTINENT OF STOOL IN BED. PATIENTS BEDDING CHANGED. PATIENT WAS ABLE TO SHOWER INDEPENDENTLY WITH NO ASSISTANCE. PATIENT PROVIDED WITH NECESSATIES TO SHOWER. PATIENT DENIES ANY NAUSEA. PATIENT RATES PAIN AT A 6/10. PATIENT GIVEN PRN PAIN MEDICATION PER ORDER. PATIENT IS NOW BACK IN BED RESTING. IV INFUSING PER ORDER. SCDS IN PLACE. NO FURTHER NEEDS NOTED. CALL LIGHT IN REACH.
--- NOTE | 2018-11-23 05:03 | NUR ---
PATIENT RESTED ON AND OFF THROUGHOUT THE SHIFT. PATIENT WAS AWAKE MULTIPLE TIMES TO HAVE SMALL LOOSE BMS. PATIENT IS PASSING GAS. PATIENT AMBUALTED X2 LAPS IN HALLWAY. PATIENT IS ON RA. PATIENT IS ON A CLEAR LIQUID DIET, TOLERATING IT WELL, NO NAUSEA NOTED. PATIENT IS INDEPENDENT IN THE ROOM. PATIENT TOOK A SHOWER DURING THIS SHIFT. PATIENT HAS IV INFUSING PER ORDER. PATIENT RECEIVED PRN PAIN MEDICATION X2. PATIENT HAS ACTIVE BOWEL TONES. PATIENT IS AAOX3 AND USES CALL LIGHT APPROPRIATELY.
--- NOTE | 2018-11-23 05:03 | NUR ---
PATIENT IS RESTING IN BED WITH EYES CLOSED, RR 17. CALL LIGHT IN REACH.
--- NOTE | 2018-11-23 05:30 | NUR ---
PATIENT IS RESTING IN BED. PATIENTS VITALS TAKEN AND RECORDED. PATIENTS INTAKE AND OUPUT RECORDED. PATIENT RATES PAIN AT A 4/10. PATIENT DENIES THE NEED FOR ANY PAIN MEDICATION AT THIS TIME. PATIENT DENIES ANY NAUSEA. NO NEEDS NOTED. CALL LIGHT IN REACH.
--- NOTE | 2018-11-23 07:18 | NUR ---
REPORT RECEIVED FROM ISABEL SCHAEFFER. PT RESTING ON LEFT SIDE WITH EYES CLOSED, RESPIRATIONS EVEN AND UNLABORED. PIV INFUSING, SCD'S IN PLACE. BED RAILSUP. CALL LIGHT WITHIN REACH.
--- NOTE | 2018-11-23 08:00 | NUR ---
MD ON PHONE, UPDATED REGARDING PT STATUS. ABDOMINAL X-RAY ORDERED.
--- NOTE | 2018-11-23 08:40 | NUR ---
X-RAY READY FOR PT. PT AWAKENS WITH VOICE AND LIGHT TOUCH. PIV SALINE LOCKED. PT REPORTS 7/10 PAIN. ASSESSMENT DONE. ABDOMEN CONTINUES TO BE DISTENDED, TENDER AND SLIGHTLY FIRM. BOWEL TONES ACTIVE. PT AGITATED ABOUT BOWEL INCONTINANCE STATING "I DON'T UNDERSTAND WHY THEY DON'T JUST CLEAN ME OUT." EDUCATION DONE. PT REPORTS EMBARISSMENT ABOUT INCONTINANCE AND IS ATTEMPS TO CHANGE CLOTHES AND DEPENDS INDEPENDANTLY WHILE STANDING. FALL PREVENTION EDUCATION DONE WITH PT. THIS RN ASSISTS PT WITH CHAING GOWN AND DEPENDS. PT REFUSES ASSESTANCE WITH WHIPING, THIS RN PRESENT WHILE PT WHIPES, STEADY AT TIMES BUT NEEDS SOME SUPPORT. MEDICATIONS GIVEN. PT TRANSFERES SELF WITH SBA TO WHEEL CHAIR FOR TRANSPORT TO X-RAY.
--- NOTE | 2018-11-23 09:23 | NUR ---
DOCTOR IN ROOM WITH PT. PT DID NOT EAT BREAKFAST HE WAS SLEEPING. CALL LIGHT WITHIN REACH. PT REFUSED SHOWER HAD ONE LAST NIGHT.
--- NOTE | 2018-11-23 09:45 | NUR ---
MD PLANS TO TAKE PT TO SURGERY NOW. THIS RN TO BEDSIDE. NG TUBE PLACED MY MD. PRE PROCEEDURE CHECK LIST COMPLETED. HAND NAILER TO BEDSIDE FOR CHG WIPE DOWN. WORKFORCE INVESTMENT ACT CAREER MANAGERROSELINE, TO BEDSIDE AND STATES TO HOLD CHG WIPE DOWN. WIPE DOWN NOT COMPLETED. LR ON STRAIGHT TUBING AND PRE OP ABX HUNG. CONSENT SIGNED. REPORT GIVEN TO ISABEL DUKES WHO STATES HER QUESTIONS HAVE BEEN ANSWERED. NO ADITIONAL REQUESTS OR COMPLATINS AT THIS TIME. PT WHEELED TO OR BY ISABEL DUKES.
--- NOTE | 2018-11-23 11:07 | NUR ---
PTS FAMILY ARRIVED. FAMILY UPDATED ON PT STATUS AND PLAN OF CARE. FAMILY STATES THEIR QUESTIONS HAVE BEEN ANSWERED.
--- NOTE | 2018-11-23 12:53 | NUR ---
PT TAKEN TO SURGERY, I DID GET TO VISIT WITH PT'S FAMILY. THEY CAME TO HIS M/S RM TO WAIT. FAMILY HAD QUESTIONS ABOUT STATUS OF SURGERY. POCKET OPERATOR ROSELINE WAS IN UNIT, SHE WAS ABLE TO GIVE UPDATED INFO TO FAMILY. WILL CONTINUE TO FOLLOW NEEDED
--- NOTE | 2018-11-23 14:38 | EKG ---
[facility] [address] [place], [place] [address] Signed Normal sinus rhythm with sinus arrhythmia Normal ECG No previous ECGs available Confirmed by KO MCKEON DO ([id number]) on 11/23/2018 2:38:11 PM Electronically Signed By: KO MCKEON DO 11/23/18 1438 PATIENT NAME: MORGAN FRANZ Electrocardiogram DATE OF : 36 PHYSICIAN: KO MCKEON DO REPORT #: [id number] REPORT IS CONFIDENTIAL AND NOT TO BE RELEASED WITHOUT AUTHORIZATION
--- NOTE | 2018-11-23 15:36 | NUR ---
11/23/18 1536 Cynthia Reed 1519 PT ARRIVED IN PACU NON RESPONSIVE TO VERBAL/TACTILE STIMULI WITH ORAL AIRWAY IN PLACE. CHIN LIFT HELD BY RN. JANG TO KATTY.
--- NOTE | 2018-11-23 17:19 | NUR ---
PATIENT ARRIVES TO CCU FROM PACU AT 1700. PT HAS EYES CLOSED AND IS WEARING 6 L OXYMASK UPON ARRIVAL. PT PLACED ON BIPAP PER RT. PATIENT'S FIRST BP 174/83. NGT TO LEFT NARE CONNECTED TO LOW INTERMITTENT SUCTION. ASSESSMETN COMPLETE. LUNGS ARE CLEAR ANTERIORLY. SOME BOWEL S0UNDS HEARD IN ABDOMEN. MIDLINE INCISION IS COVERED WITH MEPILEX AND OP SITE. SERENA DRAIN ON RIGHT SIDE DRAINING SEROSANGINOUS FLUID. MOODY CATH DRAINING DILUTE YELLOW URINE. PT ABLE TO FOLLOW COMMANDS AND SQUEEZE HANDS. PT STATES HIS PAIN IS A 7/10 IN HIS ABDOMEN. PT OPENS EYES SLOWLY, BUT FALLS BACK ASLEEP QUICKLY. SCLERA EDEMA NOTED, WELL GENERALIZED EDEMA TO ARMS AND HANDS. 2+ PITTING EDEMA NOTED TO BILATERAL LOWER LEGS AND FEET/ANKLES. SCDs ON. PT WANTIN TO TAKE BIPAP OFF AND PLACED ON 5 L OXYMASK NOW. IVF STARTED - D5 LR @ 125 ML/HR. PT'S NOT IN ROOM CURRENTLY.
--- NOTE | 2018-11-23 17:54 | NUR ---
OXYGEN TURNED DOWN TO 4 L OXYMASK. SP02 95%. 4 MG IV MORPHINE GIVEN FOR 12/01 PAIN.
--- NOTE | 2018-11-23 18:05 | NUR ---
DR. CLAYTON NOTIFIED OF LAB VALUES AND ORDERS REC'D TO REPLACE MAG AND POTASSIUM. PATIENT WANTING TO TURN ONTO HIS LEFT SIDE. POSITIONED WITH PILLOWS. SERENA AND FRANSISCO EMPTIED AT THIS TIME.
--- NOTE | 2018-11-23 18:52 | NUR ---
OXYGEN TURNED DOWN TO 3 L. SP02 96%. PATIENT C/O DRY MOUTH AND ORAL CARE PROVIDED WITH SWAB AND MOUTH MOISTURIZER. PATIENT ASKED, "WHAT DID DR. CLAYTON DO TO ME IN SURGERY?" PATIENT INFORMED OF OPERATIVE PROCEDURE FINDINGS. CONTINUE TO MONITOR.
--- NOTE | 2018-11-23 19:03 | NUR ---
PATIENT MOVED TO NASAL CANNULA AT 3 L DUE TO C/O HIS MOUTH BEING DRY. PT ALSO GIVEN SMALL SIPS OF ICE WATER FOR DRY MOUTH. PATIENT ASKS, "DID YOU GO DOWN AND CHECK MY TREVOR NUMBER AT [employer]?" PATIENT REMAINS IN GOOD SPIRITS. CONTINUE TO MONITOR. REPORT TO DANCE MASTER RNS.
--- NOTE | 2018-11-23 19:43 | NUR ---
SHIFT REPORT WAS RECEIVED FROM ISABEL ONEIL. PT IS CURRENTLY RESTING IN BED WITH EYES CLOSED. HE WAS ATTEMPTING TO PULL OFF NASAL CANNULA, PLACED IT BACK ON PT AND HE STATES "I WANT MY GLASSES OFF." INFORMED PT THAT HIS GLASSES ARE OFF AND REMINDED HIM NOT TO PULL ON NG OR NC. INCREASED OXYGEN TO 4L AT THIS TIME, PT DESATS TO 85-88% WHILE ASLEEP. DR. CLAYTON AWARE THAT PT'S BP HAVE BEEN RUNNING SBP:170-180'S. HOWEVER, MOST RECENT BP:149/84, NO NEW ORDERS RECEIVED AT THIS TIME.
--- NOTE | 2018-11-23 20:30 | NUR ---
ASSESSMENT COMPLETED. PT DROWSY, BUT ANSWERS QUESIONS APPROPRIATELY WHEN SPOKEN TO. REPORTS 6/10 ABDOMINAL PAIN, IV TYLENOL ADMINISTERED. LUNGS CLEAR, 4L O2 VIA NC. HR REGULAR. BOWEL TONES HYPOACTIVE, ABDOMEN SLIGHTLY DISTENDED AND TENDER UPON PALPATION. SCD'S IN PLACE. EDEMA NOTED TO BLE, SCLERA, AND GENERALIZED. CMS INTACT, CAP REFILL WNL, AND PERIPHERAL PULSES WELL FELT. MOODY IN PLACE, DAINING LARGE AMOUNTS OF DILUTE URINE. MOODY CATH CARE PROVIDED. MIDLINE INCISION COVERED WITH MEPILEX AND OPSITE, DRESSING C/D/I. SERENA TO RLQ, SITE COVERED WITH MEPILEX AND OPSITE, C/D/I. SERENA DRAINING SEROSANGIONUOUS DRAINAGE, 90ML EMPTIED AND TUBING STRIPPED. NG TO L.I.S., DRAINING SCANT AMOUNT OF DARK GREENISH FLUID, SECURMENT DEVICE INACT. IV SITES PATENT, DRESSING INTACT. PT APPEARS TO BE RESTING COMFORTABLY. DR. CLAYTON IN TO SEE PT, PLAN DISCUSSED TO LEAVE NG IN OVERNIGHT AND TO AVOID OPIATES DURING RECOVERY.
--- NOTE | 2018-11-23 22:01 | NUR ---
HEARD PT MOVING FROM NURSES' STATION. IN TO CHECK ON HIM AND HE INSISTED ON SITTING UP. SAT AT SIDE OF BED AND DECIDED HE WANTED TO MOVE TO CHAIR. UP WITH 2-PA TO CHAIR. MOUTH SWAB AND ICE CHIPS PROVIDED PER REQUEST. NG CURRENTLY OFF SUCTION WHILE PT IS OUTT OF BED. 4L O2 VIA NC REMAINS IN PLACE. PT REPORTS 8/10 ABDOMINAL PAIN, PRN TORADOL GIVEN. MOODY EMPTIED OF 700ML DILUTE URINE AND SERENA EMPTIED OF 55ML SEROSANGUINOUS FLUID. PT DID NOT REMEMBER THAT DR. CLAYTON CAME IN TO SEE HIM. REMINDED PT OF WHAT DR. CLAYTON TOLD HIM FAR PROCEDURES PERFORMED. PT IS OTHERWISE ORIENTED. CALL LIGHT WITHIN REACH, INSRUCTED TO NOT GET UP WITHOUT ASSISTANCE, WILL CONTINUE TO MONITOR.
--- NOTE | 2018-11-23 23:20 | NUR ---
PT CONTINUES TO SIT IN CHAIR, RESTING WITH EYES CLOSED. DOES NOT APPEAR TO BE IN ANY DISTRESS. RESPIRATIONS EVEN AND UNLABORED, RR:16, SPO2:91% ON 4L NC. CALL LIGHT WITHIN REACH.
--- NOTE | 2018-11-24 00:44 | NUR ---
PT CONTINUES TO SLEEP IN THE CHAIR. NG BACK TO L.I.S., DRAINING SCANT AMOUNT OF DARK/BILE COLORED LIQUID. LUNGS REMAINS CLEAR, 4L O2 VIA NC IN PLACE. HR REGULAR, SINUS CITLALLI. BOWEL TONES HYPOACTIVE. DRESSING TO ABDOMEN REMAINS C/D/I. SERENA EMPTIED OF 40ML SEROSANGUINOUS FLUID. MOODY PATENT, UP QS. IV INFUSING WNL. CALL LIGHT WITHIN REACH. WILL CONTINUE TO MONITOR.
--- NOTE | 2018-11-24 04:02 | NUR ---
ASSESSMENT COMPLETED. PT REPORTS 8/10 ABDOMINAL PAIN, IV TYLENOL ADMINISTERED. LUNGS REMAIN CLEAR, 4L NC IN PLACE. HR SINUS CITLALLI ~55. BOWEL TONES MORE ACTIVE. PT DENIES NAUSEA. NG PATENT, DRAINING BILE-COLORED LIQUID. DRESSINGS TO ABDOMEN C/D/I. SERENA TO LQ EMPTIED OF 30ML SEROSANGUINOUS FLUID. MOODY PATENT, UO QS. PT STATES HE WANTS TO STAY IN THE CHAIR. CALL LIGHT WITHIN REACH. WILL CONTINUE TO MONITOR.
--- NOTE | 2018-11-24 04:35 | NUR ---
PT CALLED AND REPORTED THAT HE WAS FEELING NAUSEATED. 6.25MG IV PHENERGAN ADMINISTERED, WILL TITRATE TO FULL DOSE IF NEEDED. PT REQUESTED TO GO BACK TO BED, ABLE TO TRANSFER WITH 1-PA. SCD'S ON PT. PT WAS ABLE TO COUGH UP QUARTER-SIZED AMOUNT OF REGAN PHLEGM. PT DOZING AFTER PHENERGAN. CALL LIGHT WITHIN REACH.
--- NOTE | 2018-11-24 06:00 | NUR ---
PT SAT UP IN CHAIR FOR MAJORITY OF NIGHT, ABLE TO TRANSFER WITH 1-PA. 4L O2 VIA NC IN PLACE. RECEIVED 2 DOSES IV TYLENOL AND 1 DOSE IV TORADOL FOR PAIN CONTROL. RECEIVED 1/2 DOSE OF IV PHENERGAN FOR NAUSEA THIS MORNING. NG PUT OUT 100ML BILE COLORED FLUID, CONTINUES TO L.I.S. DRESSING TO MIDLINE C/D/I. SERENA DRAINING SEROSANGUINOUS FLUID, DRESSING TO SITE C/D/I. SCD'S WORN WHILE IN BED. MOODY PATENT, UO QS. VITAL SIGNS STABLE. BOWEL TONES ACTIVE.
--- NOTE | 2018-11-24 06:10 | NUR ---
BS 243, INSULIN GTT TO 5.1 UNITS/HR.
--- NOTE | 2018-11-24 06:26 | NUR ---
REPOSITIONED. CONT ON VERSED GTT AT 2MG/HR. ABG'S DRAWN PER RT. IS RESTFUL.
--- NOTE | 2018-11-24 08:30 | NUR ---
NG TUBE CLAMPED AT THIS TIME FOR ORAL MEDICATIONS TO E GIVEN.
--- NOTE | 2018-11-24 09:05 | NUR ---
MOODY CATHETER DC'D AT THIS TIME. PT HAPPY ABOUT THIS PROCESS.
--- NOTE | 2018-11-24 09:29 | NUR ---
PT UPSET WITH ALL THE TUBES AND LINES THAT HE IS CONNECTED TOO! "I CAN'T MOVE WITH ALL THIS STUFF" "I WANT TO GET UP AND GO TO THE BATHROOM, I WANT MY BED MADE AND I WANT TO GO HOME" EXPLAINED TO PT THAT HE WILL AT LEAST BE HERE FOR A FEW MORE DAYS. THAT HIS NG TUBE WILL HAVE TO COME OUT FRIST AND SEE HOW HE DOES WITH EATING AND THAT HE HAS TO VOID ON HIS OWN ONCE HIS CATHETER IS OUT. PT PLACED ON THE BS COMMOD, PASSED GAS AND THEN UP TO THE CHAIR. ALL LINES CHANGED AND PT MEDICATED WITH TORDAL AT THIS TIME DUE TO SCHEDULE. TALKED WITH DR CLAYTON ALSO THIS AM ABOUT PT NOT BEING HAPPY WITH ALL THE EQUIPMENT INPLACE. NEW ORDERS RECEIVED.
--- NOTE | 2018-11-24 11:13 | NUR ---
PT REMAINS UP IN THE CHAIR AT THIS TIME. HAS BEEN UP TO THE BEDSIDE COMMODE AND HAD A SMALL BM LIQUID. THEN BACK TO THE CHAIR. DOING WELL WITH HIS NG CLAMPED, DUE TO PO MEDICATIONS.
--- NOTE | 2018-11-24 11:14 | NUR ---
REPORT CALLED TO MED/SURG HIMANSHU Figueroa RN ANSWERED ALL QUESTION AND PT WILL GO OVER IN THE CHAIR.
--- NOTE | 2018-11-24 11:25 | NUR ---
PT TRANSPORT TO [facility] VIA CHAIR ALL PERSONAL BELONGINGS SENT WITH PT AT THIS TIME.
--- NOTE | 2018-11-24 12:35 | NUR ---
GOT REPORT FROM RINA HALL IN CCU AT 11:02, GOT PATIENT INTO ROOM 119 AT 1325. D5LR AT 125MLS/HR IN RIGHT WRIST AND 1 BOTTLE IV TYLENOL AND GIVEN IV AND 15MG IV TORADOL GIVEN IN THE LFA IV FOR 7/10 ABD PAIN. NG TUBE PLACEMENT CRECONFIRMED WITH 30MLS AIR AND AUSCULTATION, NG NOW TO LOW INTERMITTENT WALL SUCTION. LUNGS CLEAR BURKS. CMS INTACT. ABD DRESSINGS CLEAN DRY AND INTACT. SCD'S IN PLACE. PATIENT NOW RESTING WITH EYES, CLOSED, RESPIRATIONS REGULAR AND EVEN, VS STABLE. PATIENT IS 95% ON ROOM AIR. CALL LIGHT IN REACH AND BED ALARM ON FOR SAFETY.
--- NOTE | 2018-11-24 13:45 | NUR ---
PATIENT RESTING IN BED. VISITOR IN ROOM. GOWN CHANGED. VITAL SIGNS AND I&O DONE. PATIENT DID NOT VOID DURING THIS PERIOD. RN NOTIFIED. CALL LIGHT WITHIN REACH. NO OTHER NEEDS AT THIS TIME
--- NOTE | 2018-11-24 14:30 | NUR ---
PATIENT AMBULATED TO ROOM 114. ONE PERSON ASSISTING.
--- NOTE | 2018-11-24 14:30 | NUR ---
PATIENT AMBULATED INTO THE BATHROOM AND VOIDED 200MLS AND HAD A SMAL BM AND AMBULATED BACK WITH 1PA.
--- NOTE | 2018-11-24 14:54 | NUR ---
PATIENT HAD GONE TO SLEEP FOR A SHORT TIME BEFORE GETTING UP TO THE BATHROOM , BUT WHEN HE AWOKE ABD PAIN WAS STILL 7/10. IV TYLENOL AND TORADOL HAD ALREADY BEEN GIVEN WITHOUT ANY REAL RELIEF. 1MG IV DILAUDID SIVP GIVEN AFTER HE SWITCHED ROOMS AND AMBULATED TO HIS NEW ROOM IN 114 WHICH HE TOLERATED FAIRLY WELL.
--- NOTE | 2018-11-24 15:03 | NUR ---
PT RESTING IN BED, HIS AT BS. WILMA A CHALLENGING LAST COUPLE OF DAYS HE STATED HIS PAIN WAS AT 7, AND HE WAS DEFINATELY UNCOMFORTABLE. PT REQUESTED PRAYER AND I SHARED HIS NEED WITH ISABEL DOWNS. WILL FOLLOW NEEDED
--- NOTE | 2018-11-24 15:08 | NUR ---
PATIENT GOT STARTED COMPLAINING OF NAUSEA AFTER EATING SOME ICE CHIPS. 12.5MG IV PROMETHAZINE GIVEN IN 20MLS NS PER IV PUMP.
--- NOTE | 2018-11-24 16:01 | OR ---
[facility] [address] [place], [place] [address] Signed DATE OF OPERATION: 11/18/2018 SURGEON: Aguilar Clayton MD PREOPERATIVE DIAGNOSES: 1. Persistent distal small-bowel obstruction; recurrent small-bowel obstruction. 2. 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 POSTOPERATIVE DIAGNOSES: 1. 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 2. Intraabdominal adhesions. 3. Chronic acalculous cholecystitis with gallbladder hydrops. 4. History of Eisenhower procedure (transection of ileum with implantation of ileum to the mid ascending colon), isolated cecum and ileal Crohn disease, 1961 PROCEDURES PERFORMED: 1. Exploration of abdomen, extensive lysis of adhesions. 2. Right colectomy with end-to-side ileotransverse colostomy, prolonged, complicated, difficult. 3. Open cholecystectomy. ANIMAL SHELTER SUPERVISOR: Nurse. ANESTHESIA: Aguilar Murrell CRNA; general endotracheal and local TAP block postoperatively. DRAINS: 7 mm Jim. INDICATION: This 78-year-old white man is known to me from the past. Last November, he had a small-bowel obstruction, thought related to recurrent Crohn disease. While the patient was in the [employer] in his 20s, he was diagnosed with terminal ileitis, for which he underwent an Eisenhower procedure. This was in 1961. This is generally considered an enterocolostomy without resection of the ileum --essentially transection of the ileum proximal to the involved Crohn disease with implantation of normal ileum into the mid ascending colon. I reviewed an Electronically Signed By: AGUILAR CLAYTON MD 11/24/18 1323 PATIENT NAME: MORGAN FRANZ OPERATIVE REPORT DATE OF : 36 REPORT #: [id number] PHYSICIAN: AGUILAR CLATYON MD PCP: JUAN LILLY MD REPORT IS CONFIDENTIAL AND NOT TO BE RELEASED WITHOUT AUTHORIZATION [facility] [address], [place] [address] Signed operative report with information about that last year.The patient takes no medication for Crohn disease given his advanced age of 78 years. He was hospitalized for three days in November of 2017 for bowel obstruction, which resolved with conservative measures. He was treated with mesalamine upon discharge, though it is not typically effective in Crohn disease proper. He discontinued it after time. His most recent episode began with abdominal distention, vague abdominal pain three days prior to admission on November 18.A CT scan was performed, which showed small bowel obstruction, probably distal. He had no vomiting, but nausea and bloating and inability to tolerate oral intake. The patient has been managed conservatively with IV fluids and serial examinations and although he does tolerate liquids to some degree, certainly does not tolerate progression of his diet. He underwent small-bowel follow-through yesterday. This showed dilated proximal bowel loops, but ultimately passage of contrast into the cecum, thus suggesting no incomplete obstruction. A followup abdominal x-ray this morning shows contrast in the colon but also an area of retained contrast in the distal bowel, which is dilated and highly suggestive of ongoing obstruction. The patient is recommended to undergo laparotomy with resection or other method of remedy for the obstruction. The risks of bleeding, infection, need for bowel resection, anastomosis, and other unforeseen complications were reviewed with him in detail. He understands and wished to proceed. FINDINGS: There were definitely interloop adhesions relatively extensive, but the obstructive process was as expected in the distal myra ileum. A boggy dilated segment of bowel with interloop adhesions was noted just proximal to an ileo mid ascending anastomosis. Of striking note was the isolated segment of cachil dehe ileum that had been left in situ approximately 10 inches in length, which was somewhat atrophic but still had manifestations of Crohn's ileitis with creeping fat. The cecum and colon itself appeared normal. Lysis of adhesions and freeing of the bowel to allow for milking of enteric contents distalward and although with manipulation, it could be passed through into the colon beyond the ileocolic anastomosis, it still was not quite right and on that basis, right colectomy was performed excising the previous cachil dehe ileum attendant to the cecum, but also a segment of small bowel proximal to the ileal right colonic anastomosis. Upon opening the specimen, it was clear that the obstructive process was related to active Crohn's stricture, a few inches proximal to the ileocolic anastomosis. He now has an end-to-side ileo transverse colostomy. The previous ileo colonic anastomsis was widely patent. The ileocecal valve from the isolated segment was not Electronically Signed By: AGUILAR CLAYTON MD 11/24/18 1605 PATIENT NAME: MORGAN FRANZ OPERATIVE REPORT DATE OF : 36 REPORT #: [id number] PHYSICIAN: AGULIAR CLAYTON MD PCP: JUAN LILLY MD REPORT IS CONFIDENTIAL AND NOT TO BE RELEASED WITHOUT AUTHORIZATION [facility] [address] [place] [id number] Signed obstructed either. Additionally noted was a markedly distended gallbladder, hydropic in nature, for which cholecystectomy was performed. Chronic inflammatory change of the mucosa was noted. Cholangiogram was not performed. He had no sign of hepatic abnormality. The remaining small bowel was normal without sign of creeping fat or other signs of Crohn disease. DESCRIPTION OF PROCEDURE: The patient was brought to the operating room, given a general endotracheal anesthetic. A nasogastric tube was passed by me prior to operation. A Qureshi catheter was placed without problem. The abdomen was distended. The abdomen was clipped and prepared with a chlorhexidine solution and draped sterilely. Preoperative antibiotic Ancef was given. Sequential compression device stockings were used. Heparin was subcutaneously administered previously as well. A midline incision was made. His previous incision extended from the xiphoid to the pubis. Minimization of the incision was deemed beneficial if possible. Incision extended from above the umbilicus inferiorly. Immediately noted were markedly distended loops of bowel without sign of ischemia. Various manipulations to allow for extraction of the bowel, but given its distention, the incision was extended cephalad more fully. There were interloop adhesions throughout. Examination showed the peculiar anatomy of the "Eisenhower procedure" including retained cecum and ileum. The segment of ileum that was diverted was approximately 10 inches in length. It was atretic as there has been no fecal flow through it for over 50 years, but it still showed creeping fat consistent with Crohn disease. The cecum appeared to have no evidence of appendix. I suspect it has been resected. The colon itself was otherwise normal. Extensive lysis of adhesions was undertaken to free the bowel entirely as there was no distinct transition point. The bowel is still quite distended and lysis of adhesions for over 2 hours ultimately freed the bowel entirely. The distal portion had a boggy dilated appearance and was freed as much as possible. The succus entericus was milked from the ligament of Treitz distalward, advanced it and along but was holding up quite markedly in the area proximal to the myra ileum (proximal to the ileocolic anastomosis in the mid ascending colon). With various manipulations, it could be manipulated through. There is no palpable abnormality. No external signs of stricture. The anastomosis itself appeared patent and although contents could be milked through this area, it was with difficulty and was deemed most advisable to better mobilize the colon and ascertain if there was a colonic obstruction, anastomotic stricture or possibly a small bowel lesion. The right colon was then mobilized to the midline, incised the white line of Toldt and using blunt dissection, mobilized to the midline. It was unclear just what the holdup for the succus entericus through this area was and I deemed it appropriate to provide resection of the right colon and ileum back to Electronically Signed By: AGUILAR CLAYTON MD 11/24/18 1601 PATIENT NAME: MORGAN FRANZ OPERATIVE REPORT DATE OF : 36 REPORT #: [id number] PHYSICIAN: AGUILAR CLAYTON MD PCP: JUAN LILLY MD REPORT IS CONFIDENTIAL AND NOT TO BE RELEASED WITHOUT AUTHORIZATION [facility] [address] [place] [id number] Signed normal-appearing ileum. Sequential application of hemostats to the mesenteric blood vessels was undertaken. The vascular pedicles were secured with 0 silk ties doubly applied. Mobilization of the ileal mesentery was similarly undertaken with the atretic segment of ileum, but of course this mesentery was much thicker. Ultimately, the functional ileum was transected with a FELECIA stapling device as was the right transverse colon and the specimen removed. Resected ileum was about 12 inches in length. The specimen was opened on the back table, finding the obstructive process to be an active inflammatory stricture of Crohns disease approximately 2-3 inches proximal to the previous ileo mid colonic anastomosis. The anastomosis itself was fine and there was no sign of neoplasm within the colon. Interestingly, the cachil dehe ileum entering the cecum had no such stricture either. Plans were then made for enterocolic anastomosis. An end-to-side ileotransverse colostomy was then undertaken with a two-layer technique of interrupted 3-0 Vicryl in the inner layer and interrupted 3-0 silk suture in the outer layer. Excellent patency to the anastomosis was noted. The bowel was rather large and a widely patent anastomosis was noted. Mesenteric defect was secured with running 3-0 silk suture. Irrigation was undertaken and examination of the right retroperitoneum undertaken. Hemostasis assured with electrocautery as necessary. A 7 mm flat Jim drain was placed in the right retroperitoneal space. The small bowel and abdominal contents were copiously irrigated with saline solution. Examination of the gallbladder showed to be hydropic and distended. I could not palpate any stones, but distention with bile was such that would be unlikely anyway. It was deemed advisable to perform cholecystectomy. A Bookwalter retractor, which had already been used throughout the course of operation was adjusted for good exposure of the gallbladder. Decompression of the gallbladder was undertaken and a ring clamp applied to the puncture site. Using electrocautery, the gallbladder was dissected free from the liver bed fully. Cystic arterial branches were doubly clipped and isolated. Cystic duct doubly clipped with two small clips and one large clip as well as a silk tie. Cholangiogram was not performed. The gallbladder was opened on the back table and found to have chronic inflammatory change with no sign of stones. Irrigation was undertaken and plans made for closure. Of note, two large clips were applied to the ileocolic anastomosis area for future reference on imaging. The omentum, which remained was applied over the abdominal contents. Midline fascia was reapproximated with running bidirectional #1 PDS suture. Subcutaneous tissue was irrigated with saline solution. Skin closed with running subcuticular 3-0 Vicryl. Steri-Strips were applied as was Mepilex silver sponge dressing and an OpSite. The drain was applied to bulb suction. The patient tolerated procedure well. Operation lasted nearly 5 hours, was prolonged, complicated, and difficult on the basis of adhesions and so forth. Electronically Signed By: AGUILAR CLAYTON MD 11/24/18 1601 PATIENT NAME: MORGAN FRANZ OPERATIVE REPORT DATE OF : 36 REPORT #: [id number] PHYSICIAN: AGUILAR CLAYTON MD PCP: JUAN LILLY MD REPORT IS CONFIDENTIAL AND NOT TO BE RELEASED WITHOUT AUTHORIZATION [address] [address] Signed Aguilar Clayton MD JM/MODL /[id number] cc: MD Simone Galvez MD Dr. Floyd Copies: SIMONE HARMON MD ~ Electronically Signed By: AGUILAR CLAYTON MD 11/24/18 1601 PATIENT NAME: MORGAN FRANZ OPERATIVE REPORT DATE OF : 36 REPORT #: [id number] PHYSICIAN: AGUILAR CLAYTON MD PCP: JUAN LILLY MD REPORT IS CONFIDENTIAL AND NOT TO BE RELEASED WITHOUT AUTHORIZATION
--- NOTE | 2018-11-24 16:25 | NUR ---
PATIENT'S NAUSEA IS GONE AND PAIN HAS DECREASED. PATIENT IN BED WATCHING TV AND AT BEDSIDE. LAB IN ROOM CURRENTLY DRAWING SOME LABS.
--- NOTE | 2018-11-24 17:02 | NUR ---
PATIENT RESTING IN BED. VITAL SIGNS AND I&O DONE. ICE CHIPS GIVEN. CALL LIGHT WITHIN REACH. NO OTHER NEEDS AT THIS TIME
--- NOTE | 2018-11-24 17:41 | NUR ---
PATIENT TOOK HI PM MEDS WITH A LITTLE WATER AND NG CLAMPED AND TO REMAIN CLAMPED FOR AN HOUR. PATIENT HAS REQUESTED NO MORE PAIN MEDS AND HAS BEEN RESTING QUIETLY IN BED WITH RELAXED EXPRESSION. NG PUTTING OUT GREEN DRAINAGE. PATIENT WALKING TO THE BATHROOM AND HAS WALKED AROUND THE NURSES SAWYER TO MOVE FROM RM#119 TO RM#114. LUNGS CLEAR. JG DRAINED 25MLS SEROSANGUINOUS FLUID. DRESSING CDI.BOTH IV SITE FLUSH WEL AND ARE WNL AND IV STILL INFUSING IN RIGHT WRIST. CALL LIGHT IN REACH.
--- NOTE | 2018-11-24 18:25 | NUR ---
NG RETURNED TO LIWS AFTER 1 HOUR CLAMPED AND IS DRAINING.
--- NOTE | 2018-11-24 19:20 | NUR ---
CHARGE NURSE REPORT RECEIVED, PT WITH EYES CLOSED, BUT TALKS TO STAFF WELL. NG IN PLACE. NO NEEDS AT THIS TIME.
--- NOTE | 2018-11-24 20:01 | NUR ---
REPORT RECEIVED, PT RESTING IN BED, NG TUBE TO LIWS, IV FLUIDS INFUSING PER EMAR WNL, PT C/O 12/01 PAIN, IV TYLENOL GIVEN PER EMAR WNL. DRESSING TO ABDOMEN VISUALIZED, C/D/I, BANDAIDS ON SIDES INTACT.
--- NOTE | 2018-11-24 21:15 | NUR ---
IV IN LEFT FOREARM NOTED TO BE LEAKING BY PT, NEW 22G IV PLACED IN LEFT WRIST, PT TOLERATED WELL, GOOD BLOOD RETURN, FLUSHES WELL. CONTINUOUS FLUIDS INFUSING PER EMAR WNL. ASSESSMENT COMPLETE, PT ENCOURAGED TO CDB, LS DIMINISHED IN LOWER BASES, PT C/O 6/10 PAIN IN ABDOMEN, PT GIVEN PRN TORADOL PER EMAR, PT'S ABDOMEN VISUALIZED, MEPILEX AND BANDAIDS C/D/I, SERENA DRAIN NOTED TO HAVE MODERATE AMOUNT OF SEROUS/SEROSANGUINEOUS DRAINAGE. PT'S NG TUBE CLAMPED TEMPORARILY DUE TO PO ADMINISTRATION OF FLOMAX PER EMAR. PT RESTING IN BED, DENIES ANY NEEDS AT THIS TIME, SCD'S ON, CALL LIGHT WITHIN REACH.
--- NOTE | 2018-11-24 21:41 | NUR ---
PT C/O NAUSEA, PT GIVEN PRN PHENERGAN PER EMAR, INFUSED OVER 9 MINUTES, DILUTED IN 20 ML'S NS, PT RESTING IN BED QUIETLY. CALL LIGHT WITHIN REACH.
--- NOTE | 2018-11-24 23:57 | NUR ---
PT C/O 01/01 ABDOMINAL PAIN, PT EDUCATED REGARDING PAIN MANAGEMENT, PT UNDERSTANDING, PT UP TO BATHROOM, HAD A SMALL LOOSE BM, PT THEN UP AMBULATING IN HALLS, COMPLETED 1 LAP, SBA, PT BACK TO BED NOW, CONTINUES TO C/O ABDOMINAL PAIN, PRN DILAUDID GIVEN PER EMAR, DUE TO PT'S INABILITY TO FURTHER RECEIVE NON OPIOD PAIN MEDICATION AND PERSISTANT ABD. PAIN. NG TUBE TO LIWS, IV FLUIDS INFUSING PER EMAR WNL. SCD'S ON, CALL LIGHT WITHIN REACH.
--- NOTE | 2018-11-25 01:04 | NUR ---
PT RESTING IN BED, EYES CLOSED, BREATHS EVEN, UNLABORED, NO REQUESTS AT THIS TIME, CALL LIGHT WITHIN REACH. NG TUBE TO LIWS, IV FLUIDS INFUSING PER EMAR WNL. SCD'S ON.
--- NOTE | 2018-11-25 02:56 | NUR ---
PT GIVEN PRN IV TYLENOL PER EMAR.
--- NOTE | 2018-11-25 04:47 | NUR ---
PT AOX4, APPROPRIATE, PT AMBULATED IN HALLS X1 THIS SHIFT, 1 FULL LAP OF FLOOR, PT DID RECEIVE PRN OPIOID PAIN MEDICATION X1 THIS SHIFT DUE TO PAIN UNCONTROLLED BY NON OPIOID MEDICATIONS, PT ALSO RECEIVED PRN NAUSEA MEDICATION X1 THIS SHIFT, NO ACTIVE EMESIS. PT WAS ABLE TO SLEEP ON AND OFF THIS SHIFT. NEW 22G IV PLACED TO LW, IV FLUIDS INFUSING PER EMAR WNL, PT VOIDING WELL, UO QS, VSS, NG TUBE TO LIWS, MILD AMOUNT OF BILE DRAINAGE, MEPILEX/DRESSINGS C/D/I, SERENA DRAIN HAS HAD MODERATE AMOUNT OF SEROUS DRAINAGE, PT USES CALL LIGHT APPROPRIATELY. 1 PERSON SBA.
--- NOTE | 2018-11-25 05:34 | NUR ---
PT GIVEN PRN TORADOL, PT C/O 11/01 PAIN RELATED TO ABDOMEN, PT UP TO BATHROOM, HAD A SMALL LOOSE BM, PT BACK TO BED, NG TUBE TO LIWS, TOLERATIING WELL, IV FLUIDS INFUSING PER EMAR WNL. CALL LIGHT WITHIN REACH.
--- NOTE | 2018-11-25 07:00 | NUR ---
REPORT RECEIVED FROM ISABEL GORMAN. PT RESTING IN BED WITH EYES CLOSED, RESPIRATIONS EVEN AND UNLABORED. BED RAILS UP. CALL LIGHT WITHIN REACH. NG TUBE TO LOW INTERMITANT SUCTION. IV INFUSING PER EMAR.
--- NOTE | 2018-11-25 09:09 | NUR ---
MORNING ASSESSMENT AND MEDICATION DUE. PT FINISHED WITH SHOWER. PT UP TO CHAIR AND REPORTS 7/10 PAIN IN ABDOMEN. SEE MAR FOR MEDICAITON GIVEN. DRESSING ASSESSED, MODERATE SHADOWING NOTED ON TRANSFERSE DRESSING, OTHER DRESSINGS C/D/I. PT REPORTS NAUSEA, MEDICATION DRAWN UP BUT PT DECIDES TO DECLINE MEDICATION STATES "IT'S NOT REALLY THAT BAD. I'D RATHER WAIT IT OUT. NG TUBE CLAMPED AT THIS TIME FOR PO MEDICATION ADMISTRATION AND BREAFAST. PT TOELRATES SMALL BITES OF JELLO AND TEA. PT REPORTS MINIMAL APPITITE AT THIS TIME. SERENA TUBE DRAINING CLEAR YELLOW FLUID. PAST (35ML) DRAINAGE REMOVED FROM SERENA PRIOR TO SHOWER WAS SERIOUSANGINOUS. PT UP TO WALK IN FERRIS X1 LAP. PT DEMONSRATES USE OF I.S. SCD'S NOT IN PLACE AT THIS TIME PT IS UP IN ROOM AND UP TO CHAIR. NO ADDITIONAL REQUESTS OR COMPLAINTS AT THIS TIME. CALL LIGHT WITHIN REACH.
--- NOTE | 2018-11-25 09:59 | NUR ---
THIS RN TO ROOM TO CHECK ON PT. PT RESTING WITH EYES CLOSED, RESPIRATIONS EVEN AND UNLABORED. NG TUBE REATTACHED TO LOW INTERMITTANT SUCTION. NG TUBE CANISTER EMPTIED. IV LUIDS INFUSING. PT CONTINUES RESTING IN CHAIR. CALL LIGHT WITHIN REACH.
--- NOTE | 2018-11-25 10:50 | NUR ---
THIS RN BEDSIDE WITH MD FOR ROUNDS. MD DC'D SERENA DRAIN. GAZUE APPLIED TO CATCH POTENTIAL LEAKING. MEPILEX AND OPSITE OVER MIDLINE INCISION REMOVED BY MD. DIME SIZE AREA AT DISTAL END OF INCISION HAS . MD STATES TO LEAVE IS FOR NOW. NEW STERI STRIPS APPLIED MY MD (NONE OVER AREA). ORDERS TO DC'D NG TUBE. NG TUBE DC'D PER PROTOCOL, PT TOLERATED WELL. PT REPORTS "IT FEELS SO MUCH BETTER NOW THAT THOSE TUBES ARE OUT." PT REPORTS 6/10 PAIN THAT IS TOLERABLE AND STATES HE DOES NOT WANT MEDICATION AT THIS TIME. PT DEMONSTRATES USE OF I.S. REACHING 2500. NO ADDITIONAL REQUESTS OR COMPLAINTS. CALL LIGHT WITHIN REACH.
--- NOTE | 2018-11-25 12:04 | NUR ---
MEDICATIONS DUE. THIS RN TO BEDSIDE. PT AWAKENS TO VOICE. PT UP TO PEE BUT LOOSES CONTROL AND PEES ALL OVER FLOOR. FLOOR CLEANED. CHRISTIAN CARE AND SKIN CARE DONE. NEW DEPENDS IN PLACE, FRESH GOWN IN PLACE. MEDICATIONS STARTED. PT ADVISED TO INFORM RN IF BURNING SENSTION IS FELT ALONG IV SITE. PT VERBALIZES UNDERSTANDING. CLEAR LIQUID TRY ARRIVED, PT UNINTERESTED. PT RESTING IN BED WITH EYES CLOSED, RESPIRATIONS EVEN AND UNLABORED. CALL LIGHT WITHIN REACH.
--- NOTE | 2018-11-25 13:35 | NUR ---
AFTERNOON ASSESSMENT DUE. PT ASSISTED UP TO RESTROOM "TO TRY TO HAVE A BM." PT URINATES BUT NO BM NOTED. PT BACK TO BED WITH SBA. MG INFUSION COMPLETE. POTASSIUM CONTINUES TO INFUSE. ASSESSMENT DONE. ACTIVE BOWEL TONES ONLY IN UPPER QUADRANTS. INCISION EDGES NO LONGER APROXIMATED AT DISTAL END. 1-1.5 INCHES NOTED TO BE DEHISSED. MD CALLED. ORDERS TO PLACE STERI STRIPS AND SILK TAPE. DRESSING APPLIED PER MD INSTRUCTIONS. EDGES APPROXIMATED WITH DRESSING IN PLACE. PT REPORTS 6/10 PAIN THAT "ISN'T THAT BAD." BUT PT AGREES THAT SOME MEDICAITON WOULD BE "MUCH APPRECIATED." SEE MAR FOR MEDICAITON GIVEN. PT ENCORUAGED TO AMBULATE BUT DECLINES AT THIS TIME. PT REACHES 2500 ON I.S. PROTECTION ANALYST TO BEDSIDE FOR VITALS. PT WORKING WITH PROTECTION ANALYST. NO ADDITIONAL REQUESTS OR COMPLAINTS. SCD'S REAPPLIED. CALL LIGHT WITHIN REACH.
--- NOTE | 2018-11-25 15:24 | NUR ---
PATIENT REPORTS HIS ABD PAIN IS 6.5/10 BUT IS RESTING COMFORTABLY AND INDICATED, "IT'S NOT BAD SINCE THE NOSE TUBE CAME OUT."
--- NOTE | 2018-11-25 15:37 | NUR ---
AROUND 0800 THIS MORNING. PATIENT TOOK A SHOWER. LATER WHEN I CAME BACK IN PATIENT WAS SITTING IN HIS CHAIR SLEEPING.
--- NOTE | 2018-11-25 15:39 | NUR ---
PATIENT LAYING IN BED. HAS A VISITOR.
--- NOTE | 2018-11-25 16:00 | NUR ---
THIS RN TO ROOM TO CHECK ON PT. BP REASSESSED, WNL AT THIS TIME. PT REPORTS 5/10 PAIN AND DENIES NEED FOR PAIN MEDICAITON AT THIS TIME. ASSESSMENT DONE. SMALL AMOUNT OF SHADOWING NOTED ON SILK TAPE AT THE DISTAL END OF DRESSING. EDGES APPEAR APPROXIMATED UNDER THE SILK TAPE. PT ENCORUAGED TO AMBULATE. PT UP TO AMBULATE IN FERRIS X1 LAP, SBA. PT DEMONSTRATES USE OF I.S. REACHING 2500. AT BEDSIDE. DINNER PREFERENCES FOR CLEAR LIQUID TRAY CALLED TO DIETARY. CALL LIGHT WITHIN REACH. NO ADDITIONAL REQUESTS OR COMPLAINTS.
--- NOTE | 2018-11-25 16:36 | NUR ---
PT CALL LIGHT ON. PT REPORTS 11/01 PAIN ADN REQUESTS MEDICATION. PT ALSO REQUESTS THAT HE HAVE HIS RESTLESS LEG MEDICATION NOW. SEE MAR FOR MEDICATION GIVEN. NO ADDITIONAL REQUESTS OR COMPLAINTS. AT BEDSIDE. PT ANTICIPATING DINNER ARRIVING SOON, PT HAS PLACED REQUESTS FOR CLEAR LIQUIDS THIS MEAL. CALL LIGHT WITHIN REACH. AT BEDSIDE.
--- NOTE | 2018-11-25 17:45 | NUR ---
THIS RN TO ROOM TO CHECK ON PT. PT REPORTS 5/10 PAIN AND DENIES NEED FOR ADDITIONAL PAIN MEDICATION. PT SIPPING ON CLEAR LIQUID DINNER TRAY. PT DENIES ADDITIONAL REQUESTS OR COMPLAINTS AT THIS TIME. AT BEDSIDE. CALL LIGHT WITHIN REACH. PT STATES HE IS PLANNING TO GET UP AFTER DINNER. PT REMINDED TO USE CALL LIGHT BEFORE GETTING UP ON HIS OWN. PT VERBALIZES UNDERSTANDING.
--- NOTE | 2018-11-25 18:15 | NUR ---
PT CALL LIGHT ON. PT HAS ALREADY GOTTEN HIMSELF UP AND CHANGED HIS OWN DEPENDS. PT FRUSTRATED THAT HE "IS LEAKING ALL THE TIME." PT REMINDED TO CALL RN/MECHANICAL RELIABILITY ENGINEER BEFORE GETTING UP SO THAT HE MAY BE ASSISTED UP SO LESS STRAIN WILL BE PLACED ON ABDOMINAL INCISION. PT VERBALIZES UNDERSTANDING. INCISION ASSESSED, SMALL AMOUNT OF DRAINGED NOTED ON SILK TAPE. PT UP TO AMBULATE IN FERRIS X2 LAPS. PT BACK TO BED. NO ADDITIONAL REQUESTS OR COMPLAINTS AT THIS TIME. CALL LIGHT WITHIN REACH.
--- NOTE | 2018-11-25 18:20 | NUR ---
PT POST OP DAY 2 AFTER COLECTOMY FOR SBO. 1PA. TOLERATING CLEAR LIQUID DIET W/O NAUSEA. NG TUBE AND SERENA DRAIN REMOVED THIS SHIFT. MIDLINE INCISION BEGAN DEHISSING AT DISTAL END THIS SHIFT. NEW DRESSING APPLIED. CONTINUE TO MONITOR. AMBULATION ENCORUAGED, UP X3 THIS SHIFT, 4 LAPS AROUND UNIT. LISINORPIL RESTARTED FOR HTN. POTASSIUM AND MAGNESIUM RIDERS GIVEN THIS SHIFT. PT VOIDING FREQUENTLY, SOME TROUBLE WITH INCONTINANCE. DEPENDS IN PLACE. SHOWER THIS SHIFT. PT TOLERATING ROOM AIR. PT USES CALL LIGHT INCONSISTANTLY, ENCOURAGING USE.
--- NOTE | 2018-11-25 18:40 | NUR ---
MD CALLED. MD UPDATED ON PTS WOUND STATUS, PAIN, TOLERANCE OF CLEAR LIQUIDS, AND INDEPENDANT MOVEMENT IN ROOM. NO NEW ORDERS AT THIS TIME.
--- NOTE | 2018-11-25 20:57 | NUR ---
PATIENT WAS INCONTINENET OF STOOL A LARGE AMOUNT IN THE BED, AMBULATED PATEINT TO THE BATHROOM 1PA. PATIENT WASHED UP AND NEW ATTENDS AND GOWN PLACED AND BED CLEANED AND LINEN CHANGED. SCD'S AND FEATHER CUTTING MACHINE FEEDER SOCKS CHANGED. PATIENT'S RIGHT ARM IV WAS INFILTRATED BY THE TIME WE GOT TO BACK TO BED. 22G LT ARM IV DC'D INTACT AND NEW 20G IV STARTED IN THE RAC BY THE NURSING PERFORATING MACHINE OPERATOR. BED ALARM ON.
--- NOTE | 2018-11-25 22:22 | NUR ---
PATIENT JUST VOIDED 200MLS PER URINAL AND CURRENTLY UP WALKING AROUND THE UNIT WITH AUGUST THE ADMINISTRATIVE REPRESENTATIVE. PATIENT WAS HAVING 7/10 ABD PAIN AND WAS GIVEN 650MG PO TYLENOL AND 12.5MG IV PROMETHAZINE IN 20ML NS ON THE PUMP RUNNING WITH FLUID FOR UPSET STOMACH. PATIENT HAS DONE 2 LABS AROUND THE UNIT, PAIN HAS SUBSIDED AND PATIENT IS GOING TO TRY AND GO TO SLEEP. SCD'S ON AND CALL LIGHT IN REACH.
--- NOTE | 2018-11-26 00:27 | NUR ---
PATIENT RESTING QUIETLY IN NO DISTRESS. RESPIRATIONS ARE 16. CALL LIGHT IN REACH. EYES CLOSED.
--- NOTE | 2018-11-26 02:28 | NUR ---
PATIENT RESTING QUIEITLY SUPINE EYES CLOSED RESPIRATIONS REGULAR AND EVEN. CALL LIGHT IN REACH. PATIENT IN NO DISTRESS.
--- NOTE | 2018-11-26 04:29 | NUR ---
PATIENT CURRENTLY RESTING ON HIS RIGHT SIDE, REPIRATIONS REGULAR AND EVEN AT 16 WITH HIS EYES CLOSED. CALL LIGHT IN REACH.
--- NOTE | 2018-11-26 05:35 | NUR ---
PATIENT JUST HAD LABS DRAWN AND SITTING UP IN THE BEDSIDE ARM CHAIR. PATIENT SAID HE SLEPT PRETTY WELL AFTER THE PROMETHAZINE AND TYLENOL. INCISION HAS NOT DEHISSED ANY FURTHER AND SURGICALL SITE LOOKS GOOD. PATIENT HAS HAD A COUPLE LIQUID STOOLS, 1 LARGE AND 1 MEDIUM. IV WNL AND STILL RUNNING AT 75ML/HR AND HAS BEEN VOIDING A LOT.
--- NOTE | 2018-11-26 07:00 | NUR ---
BEDSIDE HANDOFF REPORT RECEIVED FROM HAND BUFFER RN. PT SITTING IN CHAIR. PT DENIES NEEDS AT THIS TIME.
--- NOTE | 2018-11-26 07:34 | NUR ---
PT SALINE LOCKED FOR SHOWER. NURSE AIDE TO ASSIST PT.
--- NOTE | 2018-11-26 07:50 | NUR ---
PATIENT SITTING UP IN CHAIR. SETS UP BATHROOM FOR SHOWER. PATIENT GOES TO USE BATHROOM. IV WRAPPED. LINENS CHANGED. CALL LIGHT WITHIN REACH. NO OTHER NEEDS AT THIS TIME
--- NOTE | 2018-11-26 08:55 | NUR ---
PATIENT RESTING IN BED. VITAL SIGNS AND I&O DONE. HIGH BLOOD PRESSURE. PATIENT COMPLAINS ABOUT PAIN. PATIENT RATES HIS PAIN A 8 OUT OF 10. RN NOTIFIED. CALL LIGHT WITHIN REACH. NO OTHER NEEDS AT THIS TIME
--- NOTE | 2018-11-26 09:15 | NUR ---
PT RESTING IN BED. PT REQUESTING PAIN MEDICATION, RATING PAIN 7/10 TO ABD, GIVEN TYLENOL AND MOTRIN PER ORDER. PT ON ROOM AIR, LUNG SOUNDS CLEAR. BOWEL TONES ACTIVE, PT DENIES NAUSEA, TOELRATING CLEAR LIQUID DIET. PT WITH MIDLINE INCISION TO ABD, SILK TAPE TO DISTAL SECTION WITH DRAINAGE, GAUZE AND TAPE REPLACED, PT CONTINUES TO HAVE OPEN AREA TO DISTAL INCISION APPROXIMATELY 1 CM IN LENGTH, 0.5 CM WIDTH. IV FLUIDS INFUSING D5LR AT 75 ML/HR. PT WITH EDEMA TO BLE, 1+, CMS INTACT, SCDS IN PLACE. DISCUSSED PLAN OF CARE FOR THE DAY. PT DENIES OTHER NEEDS AT THIS TIME.
--- NOTE | 2018-11-26 10:30 | NUR ---
SPOKE WITH PATIENT IN THE [place] HE AMBULATED WITH STAFF. PATIENT ABLE TO AMBULATE SEVERAL LOOPS ON HIS OWN, PUSHING HIS OWN IV POLE. HE STATES HE FEELS "PRETTY GOOD". PATIENT STILL INTENDS TO RETURN HOME WITH , FEELS SAFE TO DO THIS. DISCUSSED FOR HIM TO LET STAFF KNOW IF HE THINKS OF ANYTHING HE WILL NEED AT HOME TO BE THERE SAFELY. NO FURTHER QUESTIONS AT THIS TIME.
--- NOTE | 2018-11-26 12:23 | NUR ---
PT LAYING ON SIDE, SEEMS TO BE LESS PAINFUL FOR HIM. RATED HIS PAIN AT 7. PT IS STILL TRYING TO HAVE HIS SENSE OF HUMOR. HAD PRAYER WITH HIM, WILL FOLLOW NEEDED
--- NOTE | 2018-11-26 13:16 | NUR ---
PT ASSISTED TO WALK 1.5 LAPS IN THE FERRIS. PT ASKING ABOUT PAIN MEDICATION, DISCUSSED TYLENOL AND MOTRIN WITH PT, DISCUSSED GOAL OF PAIN MANAGEMENT IT TO BE ABLE TO DO ADLS, WALK, COUGH AND PAIN BE TOLERABLE. DISCUSSED THAT OXYCODONE DECREASES GUT MOTILITY AND WHY ITS ONLY AVAILABLE FOR SEVERE PAIN. PT VERBALIZES UNDERSTANDING. PT DENIES OTHER NEEDS AT THIS TIME.
--- NOTE | 2018-11-26 13:24 | NUR ---
PATIENT IN BED WATCHING TV. VITAL SIGNS AND I&O DONE. HIGH BLOOD PRESSURE. RN NOTIFIED. CALL LIGHT WITHIN REACH. NO OTHER NEEDS AT THIS TIME
--- NOTE | 2018-11-26 17:17 | NUR ---
PATIENT RESTING IN BED. VITAL SIGNS AND I&O DONE. HIGH BLOOD PRESSURE. RN NOTIFIED. CALL LIGHT WITHIN REACH. NO OTHER NEEDS AT THIS TIME
--- NOTE | 2018-11-26 17:39 | NUR ---
PT HAD A GOOD DAY. PAIN WELL MANAGED WITH TYLENOL AND MOTRIN. PT ON ROOM AIR, LUNG SOUNDS CLEAR. TOLERATING FULL LIQUID DIET, TAKING IT SLOW, BOWEL TONES ACTIVE. MIDLINE INCISION WITH DEHISCENCE TO LOWER PORTION, UNCHANGED, GAUZE AND SILK TAPE IN PLACE. PT SALINE LOCKED. CMS INTACT, SCDS IN PLACE. WALKED IN FERRIS 3 TIMES THIS SHIFT, WILL COMPLETE 4 WALKS THIS EVENING. VOIDING QS, HAD BM TODAY.
--- NOTE | 2018-11-26 19:41 | NUR ---
PATIENT JUST COMING OUT OF THE BATHROOM. INDEPENDENT. SITTING UP IN BEDSIDE ARM CHAIR. ABD DRESSING LOOKS GREAT. NO C/O PAIN. CALL LIGHT IN REACH.
--- NOTE | 2018-11-26 22:00 | NUR ---
PATIENT RESTING QUIETLY ON HIS LEFT SIDE, EYES CLOSED, RESPIRATIONS REGULAR AND EVEN AT 16, CALL LIGHT IN REACH.
--- NOTE | 2018-11-27 01:00 | NUR ---
PATIENT RESTING QUIETLY ON HIS LEFT SIDE, RESPIRATIONS REGULAR AND EVEN AT 16, EYES CLOSED AND CALL LIGHT IN REACH.
--- NOTE | 2018-11-27 03:08 | NUR ---
PATIENT RESTING QUIETLY WITH EYES CLOSED, RESPIRATIONS EVEN AND REGULAR AT 16, AND HIS CALL LIGHT IS IN REACH.
--- NOTE | 2018-11-27 05:17 | NUR ---
PATIENT HAS RESTED WELL MOST OF THE NIGHT, USING THE URINAL AND BAATHROOM FAIRLY INDEPENDENTLY. INCISION STILL WELL APROXIMATED ON THE ABD WITH STERI STRIPS IN PLACE AND NO C/O PAIN. GOT UP AND WALKED A COUPLE LABS AROUND THE NURSES STATION.
--- NOTE | 2018-11-27 07:44 | NUR ---
PT RESTING IN THE BED WITH NO COMPLAINTS AT THIS TIME AND HE DENIES PAIN. CALL PEREZ WITHIN REACH.
--- NOTE | 2018-11-27 07:45 | NUR ---
PATIENT SITTING ON SIDE OF BED EATING BREAKFAST. CALL LIGHT IN REACH. NO FURTHER NEEDS AT THIS TIME.
--- NOTE | 2018-11-27 09:50 | NUR ---
PT SITTING ON HIS COUCH AND HE ATE 100% OF HIS BREAKFAST, HIS BOWEL SOUNDS ARE ACTIVE AND HE HAS HAD 3 LIQUID BOWEL MOVEMENTS TODAY. HE RATES HIS ABD PAIN AT A 7/10 AT THIS TIME, SEE EMAR. PT REQUESTS TO WALK LATER WHEN HIS ABD IS DECREASED.
--- NOTE | 2018-11-27 10:52 | NUR ---
PATIENT IN BED WATCHING TV. FRESH WATER GIVEN. CALL LIGHT IN REACH. NO FURTHER NEEDS AT THIS TIME.
--- NOTE | 2018-11-27 11:26 | NUR ---
Pt sleeping at this time.
--- NOTE | 2018-11-27 12:08 | NUR ---
Pt ambulated in the halls and walked two laps. Pt was steady on his feet and tolerated the walk well.
--- NOTE | 2018-11-27 13:38 | NUR ---
PATIENT IND. IN ROOM. FRESH WATER GIVEN. CALL LIGHT IN REACH. NO FURTHER NEEDS AT THIS TIME.
--- NOTE | 2018-11-27 13:48 | NUR ---
PT RESTING IN HIS CHAIR AND HE RATES HIS PAIN AT A 5/10 WHICH HE DECLINES THE NEED FOR PAIN MEDICATION FOR. INCISION SITE REMAINS UNCHANGED AND APPEARS HEALTHY. PT TOLERATED HIS LUNCH WELL AND ATE 100% OF HIS MEAL. HIS DIET HAS BEEN ADVANCED TO A REGULAR DIET. PT HAS WALKED TWO LAPS IN THE FERRIS THIS AM AND WAS ENCOURAGED TO WALK AGAIN WHICH HE STATES HE WILL DO AT THIS TIME.
--- NOTE | 2018-11-27 13:56 | NUR ---
Pt ambulated in the [place] and walked another lap around the [place] with the use of his cane and a SBA.
--- NOTE | 2018-11-27 16:16 | NUR ---
PT AMBULATED IN THE HALLS WITH A SBA AND HIS CANE. PT DID WELL AND WAS STEADY ON HIS FEET. PT STATES HIS PAIN REMAINS AT A 5 WHICH HE CONTINUES TO STATE IS ACCEPTABLE. INCISION SITE REMAINS INTACT AND UNCHANGED.
--- NOTE | 2018-11-27 18:13 | NUR ---
PATIENT IN BED WATCHING TV. CALL LIGHT IN REACH. NO FURTHER NEEDS AT THIS TIME.
--- NOTE | 2018-11-27 18:57 | NUR ---
PATIENT AMBULATED IN HALLWAY, SBA. 1 1/2 LAPS AROUND NURSES STATION. PATIENT NOW BACK IN BED. CALL LIGHT IN REACH. NO FURTHER NEEDS AT THIS TIME.
--- NOTE | 2018-11-27 19:29 | NUR ---
PATIENT JUST UP DOING LAPS IN THE HALLWAY AND JUST HAD A BM IN THE BATHROOM. WANTING NOTHING FOR PAIN. IN [employer]IR[employer] LOVED HIS DINNER, NO NEEDS CALL LIGHT IN REACH.
--- NOTE | 2018-11-27 21:08 | NUR ---
ACCOMPANIED PATIENT AMBULATE AROUND NURSE'S STATION X1.
--- NOTE | 2018-11-27 22:35 | NUR ---
CUSTOMER SUPPORT PROFESSIONAL ROUNDING NOTE. PT RESTING IN BED ON L SIDE. DOES NOT WAKE WHILE MANUFACTURER AGENT IN ROOM. WHITE BOARD UPDATED. CALL LIGHT IN REACH.
--- NOTE | 2018-11-27 23:45 | NUR ---
PATIENT RESTING QUIETLY ON HIS LEFT SIDE, EYES CLOSED, RESPIRATIONS REGULAR AND EVEN AT 16. CALL LIGHT IN REACH.
--- NOTE | 2018-11-28 01:07 | NUR ---
PATIENT JUST WOKE UP AND IS SITTING ON THE EDGE OF THE BED DRINKING APPLE JUICE AT THIS TIME. CALL LIGHT IN REACH, NO NEEDS NOTED.
--- NOTE | 2018-11-28 03:30 | NUR ---
PATIENT RESTING ON HIS LEFT SIDE WITH REGULAR AND EVEN RESPIRRATIONS, EYES CLOSED, CALL LIGHT IN REACH. PATIENT IN NO DISTRESS.
--- NOTE | 2018-11-28 05:10 | NUR ---
PATIENT RESTING QUIETLY ON HIS LEFT SIDE, UP TO THE BATHROOM MULTIPLE TIMES AND IS PRETTY MUCH INDEPENDENT. NO MEDS NEEDED FOR PRN PAIN. DRANK SOME APPLE JUICE FOR AN UPSET STOMACH. RIGHT NOW EYES CLOSED, REGULAR AND EVEN RESPIRATIONS, AND CALL LIGHT IN REACH SCD'S ON.
--- NOTE | 2018-11-28 07:33 | NUR ---
BEDSIDE REPORT RECEIVED FROM HIMANSHU HALL. PT RESTING IN HIS BED AND STATES HIS PAIN IS UNDER CONTROL AND HAS NO NEW COMPLAINTS. HE DID STATE HE HAS BEEN ORDERING SOFT FOODS SINCE HIS DIET HAD BEEN ADVANCED BUT ORDERED LA[employer] TOAST AND EGGS FOR BREAKFAST THIS AM. HE DOES STATE CONCERN THAT THE ADVANCED DIET WILL "PLUG ME UP". PT HAS HAD A LOOSE STOOL ALREADY THIS AM.
--- NOTE | 2018-11-28 09:05 | NUR ---
Pt up in the shower at this time.
--- NOTE | 2018-11-28 09:34 | NUR ---
PT STATES HIS ABD PAIN IS A 5/10 WHICH HE STATES IS ACCEPTABLE TO HIM. INCISION SITE HAS STERI STRIPS IN PLACE AND GAUZE AT THE DISTAL END WHICH WAS CHANGED THE PT SHOWERED WITH IT ON. THERE IS NO S/S OF INFECTION NOTED.
--- NOTE | 2018-11-28 09:48 | NUR ---
PT AMBULATED 1.5 LAPS IN THE FERRIS WITH A SBA AND THE USE OF HIS CANE. PT TOLERTATED THE WALK WELL AND WAS STEADY ON HIS FEET. PT BACK TO HIS BED, SCD'S ON AND RUNNING AND HIS CALL LIGHT IS WITHIN REACH.
[2018-11-28] MEDS ORDERED: TYLENOL325 MG PO (12:02)
[2018-11-28] MEDS ORDERED: MOTRIN IB200 M1 PO (12:03)
--- NOTE | 2018-11-28 12:45 | NUR ---
PATIENT TOOK A SHOWER THIS MORNING. CHANGED LINENS.
--- NOTE | 2018-11-29 09:25 | DS ---
[facility] [address], [place] [address] Signed ADMISSION DATE: 11/18/2018 DISCHARGE DATE: 11/28/2018 REASON FOR ADMISSION: 1. Recurrent small bowel obstruction. 2. History of Crohn disease. HISTORY: This 78-year-old white man is known to me from the past, having been discharged in November a year ago, suffering a small bowel obstruction related to recurrent Crohn disease. In 1961, while the patient was in the [employer], he was diagnosed with terminal ileitis, for which he underwent an Eisenhower procedure. This entailed transection of the ileum with implantation to the mid ascending colon. The [place] cecum and ileum, which was afflicted by the ileitis, was left in situ. He has had episodes of abdominal obstruction more or less since that time from time to time. A year ago, his problem resolved with conservative measures. His most recent problems began with abdominal distention and vague abdominal pain 3 days prior to current admission. He had symptoms consistent with recurrent obstruction and on that basis, presented to the emergency room, was evaluated by Dr. Veras. Nausea without vomiting and minimal passage of flatus and certainly no stool was noted. An abdominal CT scan was performed, which showed findings consistent with small bowel obstruction and hydropic gallbladder without evidence of cholecystitis. He is admitted for further evaluation and care. His medications at admission included Pepcid, Eliquis, [place], meloxicam, lisinopril, ferrous gluconate, carbidopa/levodopa 10/100, tamsulosin, pramipexole, and Tylenol. PHYSICAL EXAMINATION: GENERAL: Pleasant man. He is accompanied by his . He has grown a vigorous white phillips. NECK: Trachea is midline. He has no carotid bruit. CHEST: Clear without wheeze or rhonchi. HEART: Irregularly irregular. ABDOMEN: Distended, mildly tender, but without focal tenderness. Midline incision is noted to be well healed without sign of hernia. LABORATORY STUDIES: Showed a white count of 6.7, hematocrit of 46.5, platelets 294,000. Creatinine elevated at 1.17. Liver enzymes normal. Albumin is 4.3. Abdominal study showed distended loops Electronically Signed By: AGUILAR CLAYTON MD 11/29/18 0925 PATIENT NAME: MORGAN FRANZ DISCHARGE SUMMARY DATE OF : 36 REPORT #: [id number] PHYSICIAN: AGUILAR CLAYTON MD PCP: JUAN LILLY MD REPORT IS CONFIDENTIAL AND NOT TO BE RELEASED WITHOUT AUTHORIZATION [facility] [address], [place] [address] Signed of bowel. Gallbladder is distended, but did not look thickened. Spleen was normal to small in size. Stomach was not massively dilated. HOSPITAL COURSE: He was considered likely to have recurrent obstruction in the distal small bowel given his clinical picture. A previous passage of nasogastric tube on previous hospitalization was rather complicated and difficult resulting in knotting of the distal tube in situ. Avoidance of nasogastric tube was deemed reasonable under the circumstances. He was monitored and although he had some bowel movement and no nausea or vomiting, he remained somewhat distended. He was challenged on liquids, which were not tolerated whatsoever. Subsequent plain abdominal x-ray showed a fair amount of distended loops of bowel with air. Continued patience and minimal liquid intake were undertaken, and a small bowel follow-through was performed. Although there was passage of contrast through the GI tract and into the colon, there appeared to be a segment in the distal bowel that held up a fair amount of contrast that was dilated and quite abnormal. As the patient was not clinically progressing, it was deemed advisable to remedy the obstructive process operatively. On November 23, 2018, he underwent exploration of the abdomen. He underwent extensive lysis of adhesions for obstructed small bowel. Noted was retention of all of the right colon and cecum with surgical absence of the appendix, but with a segment of defunctionalized ileum, approximately 10 to 12 inches in length, which still had chronic inflammation and markedly narrowed related to its defunctionalized nature. Right colectomy was performed as there appeared to be a holdup of passage of enteric content that was pushed through to the intestine into the right colon. Resection included all of the right colon, about 18 inches of functional ileum, and the cecum with its defunctionalized loop of ileum. Opening of the specimen demonstrated a Crohn-related stricture proximal to the ileocolic anastomosis. As the gallbladder was hydropic and chronically inflammed, cholecystectomy was also performed without problem. A TAP block was placed as well as intravenous Tylenol, intravenous Toradol, and avoidance as much as possible of opioids postoperatively. This was largely successful with him having only 2 doses of opioid medication in the entire postoperative period. A nasogastric tube that had been placed immediately prior to operation was removed after 48 hours given the abdominal distention and distended bowel. Clear liquids were administered immediately postoperatively and thereafter allowed for resumption of his bowel function within essentially 24 hours. After 48 hours, the nasogastric tube was removed and he was advanced in his diet from clear liquids to full, having good bowel movement and bowel function, and ultimately advanced to a solid regular diet, which he tolerated very well. He did have a small dehiscence of about 1 inch of his lower abdominal incision, which was secured with Steri-Strips and gauze applied as well as some silk tape to better bolster the more proximal portion of his skin incision. Electronically Signed By: AGUILAR CLAYTON MD 11/29/18 0925 PATIENT NAME: MORGAN FRANZ DISCHARGE SUMMARY DATE OF : 36 REPORT #: [id number] PHYSICIAN: AGUILAR CLAYTON MD PCP: JUAN LILLY MD REPORT IS CONFIDENTIAL AND NOT TO BE RELEASED WITHOUT AUTHORIZATION [facility] [address], [place] [address] Signed By day of discharge, he is ambulating well, tolerating a regular diet, requiring no opioid pain medications, and doing well. DISCHARGE PLAN: He is to lift no more than 10 pounds for the next 3 weeks. He is to ambulate frequently. He will resume his usual medications. DISCHARGE MEDICATIONS: Include: 1. Tylenol 650 mg p.o. q.6 hours p.r.n. pain, #60. 2. Motrin 600 mg p.o. q.6 hours p.r.n. pain, #30. He will continue his home medications, which include: 1. Ferrous gluconate 325 mg p.o. daily. 2. Carbidopa/levodopa 10/100 one tab p.o. daily. 3. Flomax 0.4 mg p.o. daily. 4. Meloxicam 15 mg p.o. daily as needed. 5. Mirapex 0.25 mg two tablets p.o. daily. 6. Pepcid 20 mg p.o. b.i.d. for reflux disease. FOLLOWUP PLAN: He is to return to see me in approximately 3 to 4 weeks. He understands as I have mentioned to him that he will likely need Crohn-specific medication so as to diminish chances of recurrent anastomotic ileitis or anastomotic stricturing. He understands this as well. DISCHARGE DIAGNOSES: 1. 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 2. Retained right colon and cecum and [place] ileum from "Eisenhower procedure" in 1961. 3. Status post right colectomy with ileotransverse colostomy, and cholecystectomy for chronic cholecystitis and hydropic gallbladder November 23, 2018. 4. Hx of post op DVT greater than one year ago following cervical operation 5. Limited post dvt anticoagulation ( eliquis) no longer anticoagulated. 6. Benign prostatic hyperplasia. 7. Hypertension. 8. Crohns disease since 1961 Aguilar Clayton MD Electronically Signed By: AGUILAR CLAYTON MD 11/29/18 0925 PATIENT NAME: MORGAN FRANZ DISCHARGE SUMMARY DATE OF : 36 REPORT #: [id number] PHYSICIAN: AGUILAR CLAYTON MD PCP: JUAN LILLY MD REPORT IS CONFIDENTIAL AND NOT TO BE RELEASED WITHOUT AUTHORIZATION [facility] [address] [place] [id number] Signed CHAY/NED /[id number] cc: CALIXTO Casiano Copies: ANDRESSA BERGMAN ~ Electronically Signed By: AGUILAR CLAYTON MD 11/29/18 0925 PATIENT NAME: MORGAN FRANZ DISCHARGE SUMMARY DATE OF : 36 REPORT #: [id number] PHYSICIAN: AGUILAR CLAYTON MD PCP: JUAN LILLY MD REPORT IS CONFIDENTIAL AND NOT TO BE RELEASED WITHOUT AUTHORIZATION
== END 2018-11-28 13:35 | disposition home or self-care (01) | DRG 330 ==
LOC: ED 15:19 → MS 17:32 → CCU 17:32 → MS 11-24 11:25
PROVIDERS: ADMIT Surgery
PROC: 0DBB0ZZ Excision of Ileum, Open Approach (ICD-10-PCS; 2018-11-23)
PROC: 0FT40ZZ Resection of Gallbladder, Open Approach (ICD-10-PCS; 2018-11-23)
PROC: 0DNB0ZZ Release Ileum, Open Approach (ICD-10-PCS; 2018-11-23)
PROC: 0DNF0ZZ Release Right Large Intestine, Open Approach (ICD-10-PCS; 2018-11-23)
PROC: 3E0T3BZ Introduction of Anesthetic Agent into Peripheral Nerves and Plexi, Percutaneous Approach (ICD-10-PCS; 2018-11-23)
PROC: 0DTF0ZZ Resection of Right Large Intestine, Open Approach (ICD-10-PCS; principal; 2018-11-23 09:00)
DX: K50.012 Crohn's disease of small intestine with intestinal obstruction (principal); T81.31XA Disruption of external operation (surgical) wound, not elsewhere classified, initial encounter; K82.1 Hydrops of gallbladder; G89.18 Other acute postprocedural pain; I10 Essential (primary) hypertension; G25.81 Restless legs syndrome; N40.0 Benign prostatic hyperplasia without lower urinary tract symptoms; K66.0 Peritoneal adhesions (postprocedural) (postinfection); K81.1 Chronic cholecystitis; R94.4 Abnormal results of kidney function studies; Z86.718 Personal history of other venous thrombosis and embolism; Z79.1 Long term (current) use of non-steroidal anti-inflammatories (NSAID); Z79.02 Long term (current) use of antithrombotics/antiplatelets; Z79.891 Long term (current) use of opiate analgesic; Z79.899 Other long term (current) drug therapy
CPT/HCPCS: 00790; 36415; 64488; 74018; 74177; 74250; 76942; 80048; 80053; 81001; 82565; 83690; 83735; 84520; 85025; 93005; 93010; 94660; 96361; 99285-25; J0131; J0461; J0690; J1100; J1170; J1644; J1720; J1885; J2250; J2270; J2405; J2550; J2704; J2765; J2795; J3010; J3475; J3480; J7030; J7060; J7120

== ENCOUNTER 2020-06-11 06:05 | Day surgery (SDC) | payer MEDICARE, OTHER ==
[~2020-06-11] VITALS: Ht 180.3 cm; Wt 71.4 kg
[~2020-06-11 06:05] MED LIST changes: +LISINOPRIL10 MG PO; +MELOXICAM15 MG PO; +MOTRIN IB200 M1 PO; +NEURONTIN300 MG PO; +PEPCID20 MG PO; +TYLENOL325 MG PO
--- NOTE | 2020-06-11 08:03 | NUR ---
PT ALERT, ORIENTED AND SUPPORTED BY HIS . PT SEEMS VERY PREPARED, HAS FEW QUESTIONS. PT REQUESTED PRAYER, WILL FOLLOW NEEDED
--- NOTE | 2020-06-11 09:50 | NUR ---
0945 PT BACK TO ROOM FROM PACU ALERT AND AWAKE DENIES PAIN OR NAUSEA. TAKING SIPS OF WATER TOLERATES WELL.
--- NOTE | 2020-06-11 09:51 | NUR ---
06/11/20 0951 Cynthia Reed 0914 PT ARRIVED IN PACU AWAKE WITH NO C/O'S. 0930 OXYGEN REMOVED. SATS 97% ON RA. NO C/O'S. 0945 TO DS. REPORT GIVEN TO RN. AT BEDSIDE. CALL LIGHT GIVEN TO PT.
--- NOTE | 2020-06-11 11:05 | OR ---
[facility] [address] [place], [place] [address] Signed DATE OF OPERATION: 06/11/2020 SURGEON: Светлана Jade MD PREOPERATIVE DIAGNOSES: 1. A 13 mm lower pole left renal calculus. 2. Longstanding history of bilateral calcium nephrolithiasis. POSTOPERATIVE DIAGNOSES: 1. A 13 mm lower pole left renal calculus. 2. Longstanding history of bilateral calcium nephrolithiasis. NAMES OF PROCEDURES: 1. Diagnostic cystoscopy with left retrograde pyelogram. 2. Left flexible nephroureteroscopy with laser lithotripsy and basket extraction of stone fragments. 3. Insertion of a 6 x 26 cm double-J ureteral stent into the left ureter. ANESTHESIA: General. ESTIMATED BLOOD LOSS: Minimal. COMPLICATIONS: None. SPECIMENS: Multiple stone fragments obtained from the lower pole of the left kidney and sent to the laboratory for stone analysis. DRAINS: A 6 x 26 cm double-J ureteral stent inserted in the left ureter, with a string attached. INDICATIONS FOR PROCEDURE: Mr. Kohler is an 80-year-old gentleman with a longstanding history of nephrolithiasis. Approximately two years ago, he initially presented to me with significant stone burden in the form of a left-sided staghorn calculus. At the time, he was referred to [facility] to undergo a left PCNL. He underwent PCNL successfully and since that time, we have been surveilling the stone burden using serial KUBs. His most recent KUB revealed Electronically Signed By: СВЕТЛАНА JADE MD 06/11/20 1105 PATIENT NAME: MORGAN KOHLER OPERATIVE REPORT DATE OF : 36 REPORT #: [id number] PHYSICIAN: СВЕТЛАНА JADE MD PCP: JUAN LILLY MD REPORT IS CONFIDENTIAL AND NOT TO BE RELEASED WITHOUT AUTHORIZATION [facility] [address] [place], [place] [address] Signed a 13 mm lower pole left renal calculus, along with multiple stones present in the right kidney. We made the decision at that time to go ahead and perform ureteroscopy to extract the progressively enlarging stone in the left kidney. OPERATIVE FINDINGS: 1. On cystoscopy, there was no evidence of any suspicious masses, lesions, or stones. Bilateral ureteral orifices are in the normal anatomical location. Both UOs are noted to be effluxing clear urine. 2. Left retrograde pyelogram revealed multiple filling defects in the lower pole of the left kidney, consistent with multiple lower pole left renal calculi. There was no evidence of any calyceal blunting for renal pelvis dilation on retrograde pyelogram. 3. Flexible nephroscopy was used to access the two large lower pole left renal calculi, they were both fragmented successfully using holmium laser at 8 and 1 settings. 99% of the stone burden was successfully extracted using a ZeroTip basket today. 4. At the end of the procedure, a 6 x 26 cm double-J ureteral stent was inserted into the left ureter. DESCRIPTION OF PROCEDURE: After informed consent was obtained, the patient was taken back to the operating room. He was transferred from the [facility] to the operating room table, where general anesthesia was induced. He was placed in the dorsal lithotomy position and his genitalia prepped and draped in a standard sterile fashion. Using a 30-degree lens on a 22.5-Irish introducer, rigid cystoscope was inserted through his urethra into his bladder under direct visualization. Panendoscopic views of bladder were then obtained. Please see the above findings. Attention was turned to the left ureteral orifice. A 0.035 Sensor wire was used to cannulate the left ureter and the wire was advanced into the left renal pelvis. Fluoroscopy confirmed adequate placement of the wire. Over the wire, I passed an 04/06 ureteral access sheath into the left ureter under fluoroscopic guidance. The sheath passed quite easily and with little difficulty. Repeat fluoroscopy confirmed adequate placement of the sheath. Left retrograde pyelogram was then performed through the ureteral access sheath. Please see the above findings. I then advanced a flexible ureteroscope through the sheath and into the left proximal ureter and left renal pelvis. I was able to visualize two relatively large stones as well as multiple smaller stones in the mid and lower pole of the left kidney. The stones were fragmented using a holmium laser at 8 and 0.8 settings. The stones fragmented with [id number] difficulty. Once they were all fragmented to a relatively small size, I removed the laser and replaced it with a ZeroTip basket. I was able to successfully extract 99% of the stone burden today using the ZeroTip basket. This resulted in a good deal of stone burden, sent to the lab for stone analysis. Once I was satisfied that all the significant stone burden had been removed, I withdrew the flexible ureteroscope slowly to be sure there were no residual stones within the left ureter. The scope was then fully removed, a 0.035 Sensor wire was then advanced through the sheath and into the Electronically Signed By: СВЕТЛАНА JADE MD 06/11/20 1105 PATIENT NAME: MORGAN KOHLER OPERATIVE REPORT DATE OF : 36 REPORT #: [id number] PHYSICIAN: СВЕТЛАНА JADE MD PCP: JUAN LILLY MD REPORT IS CONFIDENTIAL AND NOT TO BE RELEASED WITHOUT AUTHORIZATION [facility] [address] [place], [place] [address] Signed left renal pelvis. The ureteral access sheath was then removed fully intact. Over the Sensor wire, I passed a 6 x 26 cm double-J ureteral stent into the left ureter under direct visualization without difficulty. The stent was placed with a string attached. An adequate proximal coil was seen within the left renal pelvis along with an adequate distal coil once the Sensor wire was removed. I then drained the patient's bladder and then slowly and carefully removed the rigid cystoscope. The procedure was then terminated. The patient tolerated the procedure well. No complication. He will now be transferred to the postanesthesia care unit in stable condition. DISPOSITION: I discussed the details of today's procedure with the patient's and answered all of her questions. I notified her that 99% of the stone burden was successfully extracted today. In the near future, we will need to discuss elective extraction of the multiple calculi within his right kidney. In the meantime, he will be going home today with Percocet 5/325 dispense # 30 as needed for pain along with Cipro 500 mg p.o. b.i.d. for a total of 7 days. He was instructed to remove his indwelling ureteral stent using the string attached on June 16, 2020. He will be scheduled to return to clinic on August 06, 2020 for his first postoperative evaluation. At that time, we will discuss elective extraction of his right renal calculi. MD SANDRA Izaguirre/NED /[id number] Copies: ~ Electronically Signed By: СВЕТЛАНА JADE MD 06/11/20 1105 PATIENT NAME: OSEIMORGAN GM OPERATIVE REPORT DATE OF : 36 REPORT #: [id number] PHYSICIAN: СВЕТЛАНА JADE MD PCP: JUAN LILLY MD REPORT IS CONFIDENTIAL AND NOT TO BE RELEASED WITHOUT AUTHORIZATION
--- NOTE | 2020-06-11 11:06 | NUR ---
1100 PT USED URINAL AT BEDSIDE, WAS ABLE TO VOID 50ML OF RED TINGED URINE. HE IS CONCERED ABOUT SMALL AMOUT OF BLOOD DRIPPING FROM PENIS. I TOLD HIM I WOULD HAVE DR MARIANNA TALK TO HIM.
--- NOTE | 2020-06-11 11:18 | NUR ---
1118 PT IN TO SPEEK WITH PT REASSURED HIM THAT BLEEDING IS NORMAL. PT EATING SANDWITCH AND SOUP TOLERATES WELL.
--- NOTE | 2020-06-11 11:35 | NUR ---
1135 DISCHARGE INSTRUCTIONS GIVEN TO PT AND BOTH VOICED UNDERSTANDING.
== END 2020-06-11 12:50 | disposition home or self-care (01) ==
LOC: DS 06:05 → OPS 06:05 → DS 06:45 → OPS 12:50
PROVIDERS: ATTEND Urology
PROC: 0TC78ZZ Extirpation of Matter from Left Ureter, Via Natural or Artificial Opening Endoscopic (ICD-10-PCS; principal; 2020-06-11 06:45)
PROC: 0T778DZ Dilation of Left Ureter with Intraluminal Device, Via Natural or Artificial Opening Endoscopic (ICD-10-PCS; 2020-06-11 06:45)
DX: N20.0 Calculus of kidney (principal); D64.9 Anemia, unspecified; N40.1 Benign prostatic hyperplasia with lower urinary tract symptoms; M10.9 Gout, unspecified; G25.81 Restless legs syndrome; D50.9 Iron deficiency anemia, unspecified; M54.5 Low back pain; E55.9 Vitamin D deficiency, unspecified; M48.02 Spinal stenosis, cervical region; G62.9 Polyneuropathy, unspecified; E53.8 Deficiency of other specified B group vitamins; K50.90 Crohn's disease, unspecified, without complications; K82.1 Hydrops of gallbladder; N13.8 Other obstructive and reflux uropathy; R31.29 Other microscopic hematuria; F17.220 Nicotine dependence, chewing tobacco, uncomplicated; Z86.718 Personal history of other venous thrombosis and embolism; Z79.899 Other long term (current) drug therapy
CPT/HCPCS: 00918; 74420; 82365; C1769; C2617; J0461; J0690; J1100; J2250; J2405; J2704; J3010; J7121; Q9967

== ENCOUNTER 2020-09-29 07:30 | Emergency (ER) | payer MEDICARE, OTHER ==
[~2020-09-29] VITALS: Ht 180.3 cm; Wt 71.3 kg
--- OUTSIDE RECORDS SUMMARY | 2020-09-29 07:36 | XMS ---
PreManage Notification: MORGAN FRANZ Security Rn Tele Events No recent Security Events currently on file CRITERIA MET - [facility] - Has Care Guidelines CARE PROVIDERS VIJAYA BUSTOS Internal Medicine: Pulmonary Disease 11/22/2018-Current PHONE: Unknown Shalonda has no Care Guidelines for this patient. Care History Medical/Surgical 06/06/2019 [facility] Patient stated he forgot there was a walk in clinic and will keep it in mind if he feels he needs to see someone for non life threatening service.\T\nbsp; Advised to schedule 2 week follow up if need be. 11/22/2018 [facility] - Patient is currently established with [facility]. If patient is seen in the ED during business hours. Please contact CHWs at [facility]. Care Recommendation: This patient has had 5 or more Emergency Department visits in the last 12 months.\T\nbsp; Patient requires education on the scope and purpose of the ED as an acute care provider not a Primary Care Provider and should not be utilized for chronic conditions.\T\nbsp; These are guidelines and the provider should exercise clinical judgment when providing care. E.D. VISIT COUNT (12 MO.) 1 [facility] TOTAL 1 NOTE: Visits indicate total known visits. ED/UCC VISIT TRACKING (12 MO.) 09/29/2020 07:31 [facility] [place] TYPE: Emergency COMPLAINT: - DIZZY, HIGH BLOOD PREASURE INPATIENT VISIT TRACKING (12 MO.) No inpatient visits to display in this time frame [email or web address]
[2020-09-29] MEDS ORDERED: PRAMIPEXOLE D0.25 MG PO (07:48)
[2020-09-29] MEDS ORDERED: DULOXETINE HCL20 MG PO (07:48)
== END 2020-09-29 13:16 | disposition short-term general hospital (02) ==
LOC: ED 07:30
DX: N17.9 Acute kidney failure, unspecified (principal); I63.9 Cerebral infarction, unspecified; N20.0 Calculus of kidney; I10 Essential (primary) hypertension; Z79.899 Other long term (current) drug therapy
CPT/HCPCS: 70450; 80053; 81001; 84484; 85025; 93880; 99285-25; J7030

== ENCOUNTER 2020-10-15 05:45 | Day surgery (SDC) | payer MEDICARE, OTHER ==
[~2020-10-15] VITALS: Ht 180.3 cm; Wt 72.0 kg
[~2020-10-15 05:45] MED LIST changes: +BAYER CHEWABLE81 MG PO; +DULOXETINE HCL20 MG PO
--- NOTE | 2020-10-15 09:18 | NUR ---
[facility] SLEEPY WITH NO C/O'S. 0915 OXYGEN REMOVED. SATS 98% ON RA.
--- NOTE | 2020-10-15 11:00 | NUR ---
PATIENT RESTING BACK IN BED. NO DRAINAGE FROM URETHRA. PATIENT REPORTS 0/10 PAIN, STATED " I FEEL LIKE I COULD TAKE A NAP". CALL LIGHT WITHIN REACH, NO OTHER NEEDS AT THIS TIME.
--- NOTE | 2020-10-15 11:30 | NUR ---
PATIENT RESTING BACK IN BED. REPORTS FEELING "URPY" DISCUSSED WITH AGUILAR PICKARD WHO VERBALIZED TO ADMINISTER 4MG IV ZOFRAN.
--- NOTE | 2020-10-15 12:10 | OR ---
[facility] [address] [facility] [place] [place] [address] Signed DATE OF OPERATION: 10/15/2020 SURGEON: Светлана Jade MD PREOPERATIVE DIAGNOSES: 1. Multiple right renal calculi, with a largest stone measuring approximately 11 mm. 2. Recurrent bilateral calcium nephrolithiasis. POSTOPERATIVE DIAGNOSES: 1. Multiple right renal calculi, with a largest stone measuring approximately 11 mm. 2. Recurrent bilateral calcium nephrolithiasis. NAMES OF PROCEDURES: 1. Diagnostic cystoscopy with right retrograde pyelogram. 2. Right flexible nephro-ureteroscopy with laser lithotripsy and basket extraction of stone fragments. 3. Insertion of indwelling right ureteral stent. ANESTHESIA: General. ESTIMATED BLOOD LOSS: Minimal. COMPLICATIONS: None. SPECIMENS: Stone fragments sent to the lab for stone analysis. DRAINS: A 6 x 26 cm double-J ureteral stent inserted into the right collecting system. INDICATIONS FOR PROCEDURE: Mr. Kohler is a very pleasant 80-year-old gentleman who is well known to me. He has a longstanding history of recurrent bilateral nephrolithiasis. He most recently underwent left ureteroscopy in May of 2020 for extraction of a very large 13 mm left renal calculus that had become symptomatic. All of the stone burden in the left kidney was successfully extracted at that time. He now presents today to undergo elective extraction of two large stones present within the right kidney. He denies any recent Electronically Signed By: СВЕТЛАНА JADE MD 10/15/20 1210 PATIENT NAME: PUMORGAN CHA OPERATIVE REPORT DATE OF : 36 REPORT #: [id number] PHYSICIAN: СВЕТЛАНА JADE MD PCP: JUAN LILLY MD REPORT IS CONFIDENTIAL AND NOT TO BE RELEASED WITHOUT AUTHORIZATION [facility] [address] [place], [place] [address] Signed flank pain, fevers, or chills. OPERATIVE FINDINGS: 1. On cystoscopy, there was no evidence of any suspicious masses, lesions, or stones. Bilateral ureteral orifices are in their normal anatomic location effluxing clear urine. 2. Right retrograde pyelogram reveals no obvious filling defects and no evidence of any calyceal blunting or dilation of the renal pelvis. I do appreciate what appears to be a stone in the upper pole of the right kidney. 3. Flexible nephroscopy was performed and two large stones were located within the mid and upper poles of the right kidney. Each stone was fragmented using a holmium laser and a 400 micron fiber. Both stones were difficult to fragment, likely due to calcium composition. Approximately 95% of the stone burden was successfully extracted from the right kidney using a ZeroTip basket. 4. A 6 x 26 cm double-J ureteral stent was inserted into the right collecting system at the end of the procedure without difficulty. An adequate proximal coil was seen on fluoroscopy at the end of stent placement. DESCRIPTION OF PROCEDURE: After informed consent was obtained, the patient was taken back to the operating room. He was transferred from the [facility] to the operating room table, where general anesthesia was induced. He was placed in the dorsal lithotomy position. His genitalia prepped and draped in a standard sterile fashion. Using a 30-degree lens on a 22.5-Lao introducer, rigid cystoscope was inserted through his urethra into his bladder under direct visualization. Panendoscopic views of the bladder were then obtained. Please see above findings. Attention was turned to the right ureteral orifice. A 0.035 Sensor wire was advanced through the right UO and up into the right ureter and right collecting system. Fluoroscopy confirmed adequate placement of the wire. Over the wire, I passed a 13/15 ureteral access sheath into the right ureter under fluoroscopic guidance. Repeat right retrograde pyelogram confirmed adequate placement of the sheath. Flexible nephroscopy was then performed using a flexible ureteroscope. I immediately located two large stones, one in the upper pole and one in the mid pole of the right kidney. Both stones were fragmented using a holmium laser at 400 micron fiber at 8 and 0.8 settings. The stones were difficult to fragment; however, I was successfully able to extract around 95% of the stone burden. Once I was satisfied, all stone burden had been extracted. The flexible ureteroscope was then removed from the right collecting system. A 0.035 Sensor wire was inserted through the sheath and into the right collecting system. The sheath was then removed fully intact. Over the wire, a 6 x 26 cm double-J ureteral stent was inserted into the right collecting system under fluoroscopic guidance. Once the wire was pulled, an adequate proximal coil was noted within the right renal pelvis. The patient's bladder was then emptied and the cystoscope was removed. The procedure was then terminated. The ureteral stent was placed without the presence of a string. The patient tolerated the procedure well. There were no Electronically Signed By: СВЕТЛАНА JADE MD 10/15/20 1210 PATIENT NAME: MORGAN KOHLER OPERATIVE REPORT DATE OF : 36 REPORT #: [id number] PHYSICIAN: СВЕТЛАНА JADE MD PCP: JUAN LILLY MD REPORT IS CONFIDENTIAL AND NOT TO BE RELEASED WITHOUT AUTHORIZATION [address] [address] Signed complications. He will now be transferred to the postanesthesia care unit in stable condition. DISPOSITION: I discussed the details of today's procedure with the patient and answered of all his questions. He will return to clinic on November 01 to undergo cystoscopy with right ureteral stent extraction. At that time, we will discuss the results of the stone analysis. He was sent home today with Cipro 500 mg p.o. b.i.d. for a total of 7 days along with oxycodone 5 mg one tablet q.4 hours p.r.n. pain, dispense #30. MD SANDRA Izaguirre/MODL /[id number] Copies: ~ Electronically Signed By: СВЕТЛАНА JADE MD 10/15/20 1210 PATIENT NAME: MORGAN KOHLER OPERATIVE REPORT DATE OF : 36 REPORT #: [id number] PHYSICIAN: СВЕТЛАНА JADE MD PCP: JUAN LILLY MD REPORT IS CONFIDENTIAL AND NOT TO BE RELEASED WITHOUT AUTHORIZATION
--- NOTE | 2020-10-15 12:10 | NUR ---
ADMINISTERED PAIN MEDICATION PER MAR AND ADDITIONAL 4MG IV ZOFRAN PER DR. JADE. NEW ORDER FOR 6.25 MG PHENERGAN IV ONCE, BUT PATIENT REPORTED DID NOT WANT TO FEEL DROWSY. PATIENT REPORTED IV ZOFRAN IS STARTING TO WORK. AND VERBALIZES WOULD LIKE TO GO HOME. PATIENT NOW GETTING DRESSED. APPEARS TO BE TOLERATING ACTIVITY WELL. HAS VOIDED 250 ML OF REDDISH URINE.
--- NOTE | 2020-10-15 12:30 | NUR ---
PATIENT TO BATHROOM TO VOID, VERBALIZES PAIN WELL CONTROLLED AND NAUSEA RESOLVED. PATIENT REQUESTS TO BE DISCHARGED HOME. MEETING ALL CRITERIA, DR ARZOLA'S INTO ROOM TO SPEAK WITH PATIENT. PROVIDED DISCHARGE EDUCATION, ANSWERED QUESTIONS AND CONCERNS. PROVIDED WHEELCHAIR RIDE TO FRONT. PATIENT'S DAUGHTER BELLA WAITING OUTSIDE, PROVIDED BELLA WITH VERBAL DISCHARGE INSTRUCTION AND SCRIPT.
== END 2020-10-15 12:30 | disposition home or self-care (01) ==
LOC: OPS 05:45 → DS 05:45 → OPS 06:45 → DS 06:45 → OPS 12:30
PROVIDERS: ATTEND Urology
PROC: 0TC68ZZ Extirpation of Matter from Right Ureter, Via Natural or Artificial Opening Endoscopic (ICD-10-PCS; principal; 2020-10-15 06:45)
PROC: 0T768DZ Dilation of Right Ureter with Intraluminal Device, Via Natural or Artificial Opening Endoscopic (ICD-10-PCS; 2020-10-15 06:45)
DX: N20.0 Calculus of kidney (principal); M10.9 Gout, unspecified; D50.9 Iron deficiency anemia, unspecified; E53.8 Deficiency of other specified B group vitamins; K50.90 Crohn's disease, unspecified, without complications; I82.402 Acute embolism and thrombosis of unspecified deep veins of left lower extremity; Z72.0 Tobacco use; Z20.822 Contact with and (suspected) exposure to COVID-19
CPT/HCPCS: 00918; 74420; 82365; C1769; C2617; J0690; J1100; J1885; J2405; J2704; J3010; J7121; Q9967

== ENCOUNTER 2021-07-27 09:17 | Emergency (ER) | payer MEDICARE, OTHER ==
--- OUTSIDE RECORDS SUMMARY | 2021-07-27 09:20 | XMS ---
PreManage Notification: MORGAN FRANZ Security Guide Escort Events No recent Security Events currently on file CRITERIA MET - PDMP CARE PROVIDERS VIJAYA BUSTOS Internal Medicine: Pulmonary Disease 11/22/2018-Current PHONE: Unknown Shalonda has no Care Guidelines for this patient. Care History Medical/Surgical 06/06/2019 [facility] Patient stated he forgot there was a walk in clinic and will keep it in mind if he feels he needs to see someone for non life threatening service.\T\nbsp; Advised to schedule 2 week follow up if need be. 11/22/2018 [facility] - Patient is currently established with [facility]. If patient is seen in the ED during business hours. Please contact CHWs at [facility]. Care Recommendation: This patient has [...] providing care. E.D. VISIT COUNT (12 MO.) [address] [facility] TOTAL 2 NOTE: Visits indicate total known visits. ED/UCC VISIT TRACKING (12 MO.) 07/27/2021 09:18 [facility] [place] TYPE: Emergency COMPLAINT: - STROKE SYMPTOMS 09/29/2020 07:31 [facility] [place] TYPE: Emergency COMPLAINT: - DIZZY, HIGH BLOOD PREASURE DIAGNOSES: - Essential (primary) hypertension - Other cerebral infarction - Unspecified abnormalities of gait and mobility - Calculus of kidney - Restless legs syndrome - Acute kidney failure, unspecified - Cerebral infarction, unspecified - Dizziness and giddiness - Benign prostatic hyperplasia without lower urinary tract symptoms - Other nursing home (current) drug therapy - Hypoesthesia of skin - 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
[2021-07-27] MEDS ORDERED: PLAVIX75 MG PO ×2 (11:02→11:05)
[2021-07-27] MEDS ORDERED: GABAPENTIN300 MG PO (11:57)
--- NOTE | 2021-07-28 15:17 | EKG ---
[facility] [address] [place] [address] Signed Normal sinus rhythm Left axis deviation Abnormal ECG When compared with ECG of 07-JUN-2020 16:39, No significant change was found Confirmed by LUIZ GRESHAM MD ([id number]) on 07/28/2021 3:17:02 PM Electronically Signed By: LUIZ GRESHAM MD 07/28/21 1517 PATIENT NAME: MORGAN FRANZ Electrocardiogram DATE OF : 36 PHYSICIAN: LUIZ GRESHAM MD REPORT #: [id number] REPORT IS CONFIDENTIAL AND NOT TO BE RELEASED WITHOUT AUTHORIZATION
== END 2021-07-27 12:09 | disposition home or self-care (01) ==
LOC: ED 09:17
DX: G45.9 Transient cerebral ischemic attack, unspecified (principal); I10 Essential (primary) hypertension; Z86.718 Personal history of other venous thrombosis and embolism; Z79.899 Other long term (current) drug therapy; Z79.82 Long term (current) use of aspirin
CPT/HCPCS: 36415; 70450; 70496; 70498; 80053; 84484; 85025; 85610; 85730; 93005; 93010; 99284-25; Q9967

== ENCOUNTER 2022-02-09 10:47 | Emergency (ER) | payer MEDICARE, OTHER ==
[~2022-02-09] VITALS: Ht 180.3 cm; Wt 72.3 kg
[~2022-02-09 10:47] MED LIST changes: +GABAPENTIN300 MG PO; +PLAVIX75 MG PO
--- OUTSIDE RECORDS SUMMARY | 2022-02-09 10:50 | XMS ---
PreManage Notification: MORGAN FRANZ Security Vp Product Events No recent Security Events currently on file CRITERIA MET - PDMP - [facility] - Has Care Guidelines CARE PROVIDERS JUAN SOSA [facility] 07/29/2021-Current PHONE: Unknown VIJAYA BUSTOS Internal Medicine: Pulmonary Disease 11/22/2018-Current PHONE: Unknown Shalonda has no Care Guidelines for this patient. Care History Medical/Surgical 07/29/2021 [facility] Patient stated he is waiting for someone to call him to schedule tests ordered by DR. Olmedo and Dr. Sosa. 07/28/2021 [facility] - Patient is currently established with [facility]. If patient is seen in the ED during business hours. Please contact CHWs at [facility]. Care Recommendation: This patient has had 5 or more Emergency Department visits in the last 12 months.\T\nbsp;Patient requires education on the scope and purpose of the ED as an acute care provider not a Primary Care Provider and should not be utilized for chronic conditions.\T\nbsp; These are guidelines and the provider should exercise clinical judgment when providing care. 06/06/2019 [facility] Patient stated he forgot there was a walk in clinic and will keep it in mind if he feels he needs to see someone for non life threatening service.\T\nbsp; Advised to schedule 2 week follow up if need be. E.D. VIS[facility] COUNT (12 MO.) 2 [facility] T[facility] 2 NOTE: Visits indicate total known visits. ED/UCC VISIT TRACKING (12 MO.) 02/09/2022 10:48 [facility] [place] TYPE: Emergency COMPLAINT: - DENTAL PROBLEM 07/27/2021 09:[address] [facility] [place] TYPE: Emergency COMPLAINT: - STROKE SYMPTOMS DIAGNOSES: - Essential (primary) hypertension - Personal history of other venous thrombosis and embolism - skilled nursing (current) use of aspirin - Dizziness and giddiness - Other alf (current) drug therapy - Transient cerebral ischemic attack, unspecified INPATIENT VISIT TRACKING (12 MO.) No inpatient visits to display in this time frame [email or web address]
[2022-02-09] MEDS ORDERED: CLEOCIN HCL300 MG PO (15:45)
[2022-02-09] MEDS ORDERED: HYDROCODON-ACE1 EA10 PO (16:05)
== END 2022-02-09 16:15 | disposition home or self-care (01) ==
LOC: ED 10:47
DX: K04.7 Periapical abscess without sinus (principal); I10 Essential (primary) hypertension; Z79.899 Other long term (current) drug therapy; Z79.82 Long term (current) use of aspirin
CPT/HCPCS: 10160; 36415; 70487; 80048; 85025; 99283-25; Q9967

== ENCOUNTER 2023-10-06 10:14 | Emergency (ER) | payer MEDICARE, OTHER ==
[~2023-10-06] VITALS: Ht 180.3 cm; Wt 74.8 kg
[~2023-10-06 10:14] MED LIST changes: +CLEOCIN HCL300 MG PO; +FINASTERIDE5 MG PO; +HYDROCODON-ACE1 EA10 PO; +MECLIZINE HCL25 M1 PO
[2023-10-06] MEDS ORDERED: CELECOXIB100 MG PO (10:33)
[2023-10-06 12:04] VITALS: BP 146/72
--- NOTE | 2023-10-06 21:34 | EKG ---
[facility] [address] [facility] [place] [address] Signed Sinus rhythm with premature atrial complexes in a pattern of bigeminy Left axis deviation Abnormal ECG When compared with ECG of 22-NOV-2022 20:52, premature atrial complexes are now present Confirmed by Amee Domínguez MD () on 10/06/2023 9:35:04 PM Electronically Signed By: MAEE DOMÍNGUEZ MD 10/06/23 2134 PATIENT NAME: MORGAN FRANZ Electrocardiogram DATE OF : 36 PHYSICIAN: AMEE DOÍMNGUEZ MD REPORT #: [id number] REPORT IS CONFIDENTIAL AND NOT TO BE RELEASED WITHOUT AUTHORIZATION
== END 2023-10-06 12:02 | disposition left against medical advice (07) ==
LOC: ED 10:14
DX: M25.512 Pain in left shoulder (principal); Z53.29 Procedure and treatment not carried out because of patient's decision for other reasons
CPT/HCPCS: 73030; 93005; 93010

== ENCOUNTER 2024-07-18 07:00 | Day surgery (SDC) | payer MEDICARE, OTHER ==
[2024-07-14 10:49] VITALS: BP 150/82
[~2024-07-18] VITALS: Ht 180.3 cm; Wt 72.7 kg
[~2024-07-18 07:00] MED LIST changes: +ATORVASTATIN CA20 MG PO; +CEFAZOLIN SODIUM 2 GM/20 ML SYR IV SCH; +CELECOXIB100 MG PO; +DEXAMETHASONE SOD PHOS 4 MG/ML VIAL ONE; +FAMOTIDINE 20 MG/ 2 ML VIAL ONE; +HYDROXYZINE HCL25 MG PO; +IBLOOD GLUCOSE TEST STRIP 1 EA TEST VI PRN; +KETOROLAC TROMETHAMINE 30 MG/ML VIAL ONE; +LACTATED RINGER'S 1,000 ML IV ONE; +LACTATED RINGER'S 1,000 ML IV SCH; +LIDOCAINE HCL 1% 5 ML SDV INJ ONE; +METHOCARBAMOL750 MG PO; +METOCLOPRAMIDE HCL 10 MG/2 ML SDV ONE; +PAXLOVID 300-11 EAC1 PO; +PEPCID AC20 MG PO; +PROSCAR5 MG PO; +ZESTRIL10 MG PO; +fentaNYL citrate 100 MCG/2 ML VIAL ONE; +ondansetron HCL 4 MG/2 ML VIAL ONE; +propofoL 200 MG/20 ML VIAL ONE
[2024-07-18 07:20] VITALS: BP 172/82
[2024-07-18] MEDS ORDERED: HYDROmorphone HCL 1 MG/ML SYR IV PRN (07:30)
[2024-07-18] MEDS ORDERED: OXYCODONE/APAP 5/325 TAB PO PRN (07:30)
[2024-07-18] MEDS ORDERED: KETOROLAC TROMETHAMINE 15 MG/ML VIAL IV PRN (07:30)
[2024-07-18] MEDS ORDERED: ondansetron HCL 4 MG/2 ML VIAL IV PRN ×2 (07:30→08:00)
[2024-07-18] MEDS ORDERED: NALOXONE HCL 0.4 MG SYR IV PRN (08:00)
[2024-07-18] MEDS ORDERED: METOCLOPRAMIDE HCL 10 MG/2 ML SDV IV PRN (08:00)
[2024-07-18] MEDS ORDERED: droPERidol 5 MG/2 ML VIAL IV PRN (08:00)
[2024-07-18] MEDS ORDERED: fentaNYL citrate 50 MCG/ML SDV IV PRN (08:00)
[2024-07-18] MEDS ORDERED: MORPHINE SULFATE 10 MG/ML VIAL IV PRN (08:00)
[2024-07-18] MEDS ORDERED: IBLOOD GLUCOSE TEST STRIP 1 EA TEST VI PRN (08:00)
[2024-07-18] MEDS ORDERED: PROCHLORPERAZINE EDISYLATE 10 MG/2 ML VIAL IV PRN (08:00)
[2024-07-18] MEDS ORDERED: iopamidoL 30 ML VIAL ONE (08:24)
[2024-07-18] MEDS ORDERED: LACTATED RINGER'S 1,000 ML IV ONE (11:05)
--- NOTE | 2024-07-18 11:32 | NUR ---
07/18/24 1132 Katie Mulligan PATIENT ARRIVES IN PACU WITH AN ORAL AIRWAY IN PLACE. HE IS UNRESPONSIVE. JAW THRUST PERFORMED TO KEEP AIRWAY OPEN.
[2024-07-18 12:05] VITALS: BP 141/75
--- NOTE | 2024-07-18 12:09 | NUR ---
1200- PT ARRVIES TO DAY SURGERY TREATMENT ROOM. BEDSIDE RECIEVED FROM ISABEL WOLF. SURGICAL SITE SHOWS A SMALL AMOUNT OF RED DRAINAGE. PT DENIES PAIN AND NAUSEA. PT IS SITTING UP AND TALKING WITH RN. PT PROVIDED WITH APPLE SAUCE, PUDDING AND WATER. PLAN OF CARE DISCUSSED AND PT DENIES OTHER NEEDS AT THIS TIME. CALL LIGHT IN REACH AND BED IN LOWEST POSITION.
[2024-07-18 13:00] VITALS: BP 179/92
--- NOTE | 2024-07-18 13:39 | NUR ---
6775- PT CALL LIGHT ANSWERED. PT REPORTS HAVING TO USE THE RESTROOM TO URINATE. BEDDING CHANGED DUE TO SOILED SHEETS. PT USING CANE TO AMBULATE TO THE RESTROOM INDEPENDENTLY WITH NO ISSUES. PT URINATES 100ML OF RED URINE WITH 2-3 SMALL CLOTS NOTED. PT RETURNS TO ROOM INDEPENDENTLY WITH CANE.
--- NOTE | 2024-07-18 14:03 | NUR ---
1300- VITAL SIGNS OBTAINED. PT REPORTS SOME BURNING SENSATION WITH PEEING. ON THE PAIN SCALE HE REPORTS A 2 AT THE MOMENT BUT UP TO A 4/10 WHEN URINATING. PT REPORTS NO NAUSEA. PT IS GETTING DRESSED INDEPENDENTLY. 0125- GIVES A VERBAL ORDER FOR PYRIDIUM 200MG ORALLY NOW.
[2024-07-18] MEDS ORDERED: PHENAZOPYRIDINE HCL 100 MG TAB PO ONE (14:15)
[2024-07-18 14:18] VITALS: BP 169/92
--- NOTE | 2024-07-18 14:34 | NUR ---
1400- VITAL SIGNS OBTAINED. DC INSTRUCTIONS GONE OVER. ALL QUESTIONS AND CONCERNS ANSWERED. IV REMOVED, TIP INTACT ON REMOVAL. PAPERWORK AND PRESCRIPTION GIVEN TO PT. 1417- PYRIDIUM GIVEN, SEE EMAR. PT HAS PASSED ALL DISCHARGE CRITERIA. 1425- PT IS ABLE TO AMBULATE TO THE WHEELCHAIR WITH HIS CANE AND ALL BELONGINGS. PT DC FROM DAY SURGERY WITH NO QUESTIONS OR CONCERNS.
[2024-07-21 09:44] LABS: CALCULI MASS 412 mg (())
== END 2024-07-18 14:25 | disposition home or self-care (01) ==
LOC: OPS 07:00 → DS 07:00 → OPS 07:30 → DS 08:20 → OPS 08:20 → DS 09:15 → OPS 14:25
PROVIDERS: ATTEND Urology
PROC: 0TC18ZZ Extirpation of Matter from Left Kidney, Via Natural or Artificial Opening Endoscopic (ICD-10-PCS; principal; 2024-07-18 08:20)
PROC: 0T778DZ Dilation of Left Ureter with Intraluminal Device, Via Natural or Artificial Opening Endoscopic (ICD-10-PCS; 2024-07-18 08:20)
DX: N20.0 Calculus of kidney (principal); N40.1 Benign prostatic hyperplasia with lower urinary tract symptoms; R39.15 Urgency of urination; G25.81 Restless legs syndrome; K50.90 Crohn's disease, unspecified, without complications; Z87.891 Personal history of nicotine dependence; Z79.82 Long term (current) use of aspirin; Z79.899 Other long term (current) drug therapy; Z86.73 Personal history of transient ischemic attack (TIA), and cerebral infarction without residual deficits
CPT/HCPCS: 00910; 74420; 82365; C1769; C2617; J0690; J1100; J1885; J2405; J2704; J2765; J3010; J7121; Q9967

== ENCOUNTER 2025-01-10 07:09 | Emergency (ER) | payer MEDICARE, OTHER ==
[~2025-01-10] VITALS: Ht 180.3 cm; Wt 73.0 kg
[~2025-01-10 07:09] MED LIST changes: -CEFAZOLIN SODIUM 2 GM/20 ML SYR IV SCH; -DEXAMETHASONE SOD PHOS 4 MG/ML VIAL ONE; -FAMOTIDINE 20 MG/ 2 ML VIAL ONE; +FLONASE ALLERG9.9 ML NAS; -IBLOOD GLUCOSE TEST STRIP 1 EA TEST VI PRN; -KETOROLAC TROMETHAMINE 30 MG/ML VIAL ONE; -LACTATED RINGER'S 1,000 ML IV ONE; -LACTATED RINGER'S 1,000 ML IV SCH; -LIDOCAINE HCL 1% 5 ML SDV INJ ONE; -METOCLOPRAMIDE HCL 10 MG/2 ML SDV ONE; -fentaNYL citrate 100 MCG/2 ML VIAL ONE; -ondansetron HCL 4 MG/2 ML VIAL ONE; -propofoL 200 MG/20 ML VIAL ONE
[2025-01-10 08:50] VITALS: BP 152/85
== END 2025-01-10 08:50 | disposition home or self-care (01) ==
LOC: ED 07:09
DX: I80.01 Phlebitis and thrombophlebitis of superficial vessels of right lower extremity (principal); I10 Essential (primary) hypertension; Z87.442 Personal history of urinary calculi; Z79.899 Other long term (current) drug therapy; Z79.82 Long term (current) use of aspirin; I82.811 Embolism and thrombosis of superficial veins of right lower extremity
CPT/HCPCS: 93971; 99283-25

== ENCOUNTER 2025-01-25 08:38 | Emergency (ER) | payer MEDICARE, OTHER ==
[~2025-01-25] VITALS: Ht 180.3 cm; Wt 75.8 kg
[2025-01-25] MEDS ORDERED: HYDROCODONE/ACETA 5/325 TAB PO ONE (08:45)
[2025-01-25] MEDS ORDERED: APIXABAN 5 MG TAB PO ONE (10:15)
[2025-01-25] MEDS ORDERED: ELIQUIS5 MG PO (10:25)
[2025-01-25 10:37] VITALS: BP 131/68
== END 2025-01-25 10:37 | disposition home or self-care (01) ==
LOC: ED 08:38
DX: I82.441 Acute embolism and thrombosis of right tibial vein (principal); I82.811 Embolism and thrombosis of superficial veins of right lower extremity; I10 Essential (primary) hypertension; Z79.82 Long term (current) use of aspirin; Z79.899 Other long term (current) drug therapy
CPT/HCPCS: 93971; 99284-25

== ENCOUNTER 2025-04-16 15:39 | Emergency (ER) | payer MEDICARE, OTHER ==
[~2025-04-16] VITALS: Ht 180.3 cm; Wt 74.7 kg
[2025-04-16 16:09] LABS: BASOPHILS 1.1 % (0.2-1.2); EOSINOPHILS 6.1 % (0.8-7.0); LYMPHOCYTES 11.5 % (21.8-53.1); MCH 32.3 PG (25.7-32.2); MCHC 32.7 g/dL (32.3-36.5); MCV 98.8 fL (79.0-92.2); MONOCYTES 11.0 % (5.3-12.2); NEUTROPHILS 70.1 % (34.0-67.9); RBC 4.30 M/uL (4.63-6.08)
[2025-04-16 16:25] LABS: ALT (SGPT) 25.0 U/L (14-59); AST (SGOT) 25.0 U/L (15-37); GLOMERULAR FILTRATION RATE,EST 59.0 mL/min (>60); PROTEIN, TOTAL 7.1 g/dL (6.4-8.2); UREA NITROGEN 19.0 mg/dL (7-18)
[2025-04-16] MEDS ORDERED: MORPHINE SULFATE 4 MG/ML VIAL IV ONE (16:30)
[2025-04-16] MEDS ORDERED: KETOROLAC TROMETHAMINE 15 MG/ML VIAL IV ONE (16:30)
[2025-04-16] MEDS ORDERED: TAMSULOSIN HCL 0.4 MG CAP PO ONE (16:30)
[2025-04-16 17:58] LABS: BLOOD/HGB, URINE LARGE (Negative); KETONE, URINE SMALL (Negative); LEUK ESTERASE, URINE NEGATIVE (negative); NITRITE, URINE NEGATIVE (negative)
[2025-04-16 18:05] LABS: EPITHELIAL CELLS, URINE SQUAMOUS 1+ /lpf (0-1+)
[2025-04-16 18:11] LABS: BACTERIA, URINE 1+ /hpf (negative); CASTS, URINE NONE SEEN \\lpf; CRYSTALS, URINE CALCIUM OXALATE 1+ (0-1+); REFLEX CULTURE, URINE No (No)
[2025-04-16] MEDS ORDERED: SODIUM CHLORIDE 0.9% 1,000 ML IV SCH (18:15)
[2025-04-16 19:37] VITALS: BP 139/70
--- NOTE | 2025-04-17 11:20 | EKG ---
[facility] [address] [facility] [place] [address] Signed Normal sinus rhythm Left anterior fascicular block Septal infarct (cited on or before 14-JUL-2024) Abnormal ECG When compared with ECG of 14-JUL-2024 10:54, Questionable change in initial forces of Septal leads Nonspecific T wave abnormality now evident in Lateral leads Confirmed by Mark Brown DO ([id number]) on 04/17/2025 11:20:13 AM Electronically Signed By: MARK BROWN DO 04/17/25 1120 PATIENT NAME: MORGAN FRANZ Electrocardiogram DATE OF : 36 PHYSICIAN: MARK BROWN DO REPORT #: [id number] REPORT IS CONFIDENTIAL AND NOT TO BE RELEASED WITHOUT AUTHORIZATION
== END 2025-04-16 19:30 | disposition short-term general hospital (02) ==
LOC: ED 15:39
PROVIDERS: Emergency Medicine
DX: N13.2 Hydronephrosis with renal and ureteral calculous obstruction (principal); R31.9 Hematuria, unspecified; I10 Essential (primary) hypertension; Z79.2 Long term (current) use of antibiotics; Z79.899 Other long term (current) drug therapy; Z79.01 Long term (current) use of anticoagulants
CPT/HCPCS: 36415; 71045; 74176; 80053; 81001; 85025; 93005; 93010; 96374; 96375; 99285-25; J0696; J1885; J2270; J2405